=== PATIENT | female | born 1960 | race African-American/Black ===

== ENCOUNTER → 2020-08-28 01:18 | Outpatient (CLI) | payer BC, SELFPAY ==
[2020-08-28 20:54] LABS: SARS-CoV-2 RNA PCR Negative
== END ==
PROVIDERS: PCP Internal Medicine; Visit Provider Internal Medicine Gastroenterology
DX: Z01.812 Encounter for preprocedural laboratory examination (principal); Z20.822 Contact with and (suspected) exposure to COVID-19
CPT/HCPCS: C9803; U0003; U0005

== ENCOUNTER 2020-08-31 02:53 | Day surgery (SDC) | payer BC, SELFPAY ==
[2020-08-19 13:46] VITALS: BMI 22.8
[2020-08-31 09:53] VITALS: BP 109/62; PULSE 65; RESP 14; TEMP 36.6; O2SAT 99; BMI 23.2
[2020-08-31] MEDS: LACTATED RINGERS 1,000 ML 150 ML IV CONT (10:06)
--- NOTE | 2020-08-31 10:09 | PM.HPGS ---
History of Present Illness History of Present Illness Consent: Risks, benefits, and alternatives have been discussed and questions answered. Patient agrees to proceed with procedure. Chief complaint: neoplasm screening Narrative: Stefanie Roger is a 60 year old female referred for colon cancer screening Review of Systems Review of Systems: All systems reviewed & are unremarkable except as noted in HPI and below [facility] Social History Social History Smoking packs per day: 0.5 Smoking cigarettes per day: 10.0 Years smoked: 25 Smoking pack-years: 12.50 Smoking status: Current every day smoker Tobacco type: cigarettes Alcohol intake: current Alcohol use details: OCCASSIONAL Substance use: current Substance use type: marijuana Living arrangements: with family Gender identity (if verbalized by the patient): Female Spiritual care concerns: No Meds Home Medications and Allergies Home Medications Medication Instructions Recorded Confirmed Type cetirizine 10 mg tablet 10 mg PO DAILY #30 tablet 05/28/19 08/31/20 Rx hydrochlorothiazide 12.5 mg tablet See Rx Instructions .ROUTE 06/07/20 08/31/20 Rx .COMPLEX #90 tablet Allergies Allergy/AdvReac Type Severity Reaction Status Date / Time No Known Allergies Allergy Verified 08/31/20 09:52 Vital Signs Vital Signs - 24 hr 08/31/20 09:53 Temperature 36.6 C Pulse Rate 65 Respiratory Rate 14 Blood Pressure 109/62 Pulse Oximetry 99 Exam Resp: Auscultation: clear to auscultation bilaterally Cardio: Rate: regular rate Rhythm: regular rhythm GI: GI Palp: Yes Soft to palpation and No Tenderness to palpation present (GI) Assessment and Plan Assessment and plan (1) Screening for colon cancer: Code(s): Z12.11 - Encounter for screening for malignant neoplasm of colon Status: Acute
--- NOTE | 2020-08-31 10:37 | WPDANESEPPF ---
Anes - Initial Pre Proc Eval Procedure: Operation Date: 08/31/20 10:30 Proposed Procedures p Screening Colonoscopy - Aaron Bourne MD Date/Time: 08/31/20 10:37 Surgeon: Aaron Bourne MD Pre Op Diagnosis: neoplasm screening Patient Data Age: 60 Gender: F Height: 5 ft 9 in Weight: 71.3 kg Last Vital Signs Temp 97.8 F 08/31/20 09:53 Pulse 65 08/31/20 09:53 Resp 14 08/31/20 09:53 BP 109/62 08/31/20 09:53 Pulse Ox 99 08/31/20 09:53 Allergies Allergy/AdvReac Type Severity Reaction Status Date / Time No Known Allergies Allergy Verified 08/31/20 09:52 Home Medications Medication Instructions Recorded Confirmed Type cetirizine 10 mg tablet 10 mg PO DAILY #30 tablet 05/28/19 08/31/20 Rx hydrochlorothiazide 12.5 mg tablet See Rx Instructions .ROUTE 06/07/20 08/31/20 Rx .COMPLEX #90 tablet Patient hx anesthesia problems: none Family hx anesthesia problems: none PMFSH Past Medical History Medical History (Updated 08/31/20 @ 10:37 by Dannie Rodriguez MD) Hypertension Social History Social History Smoking packs per day: 0.5 Smoking cigarettes per day: 10.0 Years smoked: 25 Smoking pack-years: 12.50 Smoking status: Current every day smoker Tobacco type: cigarettes Alcohol intake: current Alcohol use details: OCCASSIONAL Substance use: current Substance use type: marijuana Living arrangements: with family Gender identity (if verbalized by the patient): Female Spiritual care concerns: No Anes - Eval Final PreProcedure Day of Procedure 08/31/20 10:37 Patient weight: normal Heart: regular rate and rhythm Lungs: clear to auscultation Airway: Mallampati scale class II Neurological: alert and oriented Last oral intake: >/= 8 hours ASA classification: II Emergent: no Anesthetic plan: proceed Anesthesia type and monitoring: general GIVS and standard monitoring Informed Consent: The patient's anesthetic plan and its attendant risks and benefits were discussed with the patient/family/POA. Questions were solicited and answers provided to the satisfaction of the patient/family/POA.
[2020-08-31 11:15] VITALS: BP 106/66; PULSE 76; RESP 14; O2SAT 99
[2020-08-31 11:25] VITALS: BP 108/72; PULSE 72; RESP 13; O2SAT 99
[2020-08-31 11:35] VITALS: BP 110/65; PULSE 68; RESP 14; O2SAT 96
== END 2020-08-31 11:58 | disposition home or self-care (01) ==
PROVIDERS: PCP Internal Medicine; Visit Provider Internal Medicine Gastroenterology
PROC: 0DJD8ZZ Inspection of Lower Intestinal Tract, Via Natural or Artificial Opening Endoscopic (ICD-10-PCS; CPT 45378; principal; 2020-08-31 10:30)
DX: Z12.11 Encounter for screening for malignant neoplasm of colon (principal); K63.89 Other specified diseases of intestine; F17.210 Nicotine dependence, cigarettes, uncomplicated
CPT/HCPCS: 45378; J2704; J7120

== ENCOUNTER 2020-12-01 09:23 | Outpatient (CLI) | payer BC, SELFPAY ==
[2020-12-01 10:11] LABS: Alanine Aminotransferase 17 U/L (4-35); Albumin Level 3.8 g/dL (3.5-5.1); Alkaline Phosphatase 63 U/L (38-126); Anion Gap 7 mmol/L (8-16); Aspartate Amino Transferase 29 U/L (14-36); Bilirubin,Total 0.5 mg/dL (0.2-1.3); Blood Urea Nitrogen 16 mg/dL (7-17); Carbon Dioxide 29 mmol/L (22-30); Chloride 104 mmol/L (98-107); Cholesterol 199 mg/dL (0-200); Estimated Glomerular Filt Rate > 60; Glucose 86 mg/dL (65-110); HDL Direct 55 mg/dL; Potassium 3.3 mmol/L (3.4-5.0); Sodium 140 mmol/L (137-145); Triglycerides 99 mg/dL (<150)
[2020-12-01 10:23] LABS: LDL Cholesterol Direct 81 mg/dL
[2020-12-01 11:39] LABS: Vitamin D 25 Hydroxy 33.2 ng/mL
== END 2020-12-01 09:24 | disposition home or self-care (01) ==
PROVIDERS: PCP Internal Medicine; Visit Provider Internal Medicine
DX: Z13.21 Encounter for screening for nutritional disorder (principal); R60.9 Edema, unspecified; Z13.6 Encounter for screening for cardiovascular disorders; Z13.220 Encounter for screening for lipoid disorders
CPT/HCPCS: 36415; 80053; 80061; 82306

== ENCOUNTER 2020-12-16 12:24 | Outpatient (CLI) | payer BC, SELFPAY ==
[2020-12-16 14:03] LABS: Anion Gap 7 mmol/L (8-16); Blood Urea Nitrogen 16 mg/dL (7-17); Calcium 9.4 mg/dL (8.4-10.2); Carbon Dioxide 30 mmol/L (22-30); Chloride 105 mmol/L (98-107); Estimated Glomerular Filt Rate > 60; Glucose 81 mg/dL (65-110); Potassium 3.2 mmol/L (3.4-5.0); Sodium 142 mmol/L (137-145)
[2020-12-16 14:33] LABS: Thyroid Stimulating Hormone 0.022 uIU/mL (0.465-4.680)
== END 2020-12-16 12:25 | disposition home or self-care (01) ==
PROVIDERS: PCP Internal Medicine; Visit Provider Internal Medicine
DX: E87.6 Hypokalemia (principal); L65.9 Nonscarring hair loss, unspecified
CPT/HCPCS: 36415; 80048; 84443

== ENCOUNTER 2021-06-17 17:07 | Outpatient (CLI) | payer BC, SELFPAY ==
[2021-06-17 17:37] LABS: Anion Gap 7 mmol/L (8-16); Blood Urea Nitrogen 17 mg/dL (7-17); Calcium 8.9 mg/dL (8.4-10.2); Carbon Dioxide 31 mmol/L (22-30); Chloride 102 mmol/L (98-107); Estimated Glomerular Filt Rate > 60; Glucose 100 mg/dL (65-110); Potassium 3.2 mmol/L (3.4-5.0); Sodium 140 mmol/L (137-145)
== END 2021-06-17 17:08 | disposition home or self-care (01) ==
LOC: ANHLAB 17:09
PROVIDERS: PCP Internal Medicine; Visit Provider Internal Medicine
DX: R60.9 Edema, unspecified (principal)
CPT/HCPCS: 36415; 80048

== ENCOUNTER 2021-08-25 17:12 | Outpatient (CLI) | payer BC, SELFPAY ==
--- NOTE | ~2021-08-25 | MM_ITS ---
EXAMINATION: MM screening gene BI w tracy HISTORY: Screening mammogram TECHNIQUE: Craniocaudal and mediolateral oblique 3-D tomosynthesis images were obtained and synthetic 2-D images were generated. CAD analysis was submitted and interpreted. COMPARISON: No prior mammogram is available for comparison at this institution. BREAST PARENCHYMAL COMPOSITION: There are scattered areas of fibroglandular density. FINDINGS: There is asymmetry in the mid to upper outer right breast. Comparison with prior mammogram is recommended to document stability of 2 more years. (There is reportedly a prior mammogram at [facility] from 2 years ago.) Otherwise no suspicious mass, architectural distortion, malignant calcification, skin thickening or r etraction of either breast is noted. IMPRESSION: 1. Mammographic asymmetry in the mid to upper outer right breast 2. Comparison with prior mammogram is recommended BI-RADS Category 0: Incomplete: Needs additional imaging evaluation. Reviewed, dictated and finalized at location A.
== END 2021-08-25 17:13 | disposition home or self-care (01) ==
PROVIDERS: PCP Internal Medicine; Visit Provider Internal Medicine
DX: Z12.31 Encounter for screening mammogram for malignant neoplasm of breast (principal)
CPT/HCPCS: 77063; 77067

== ENCOUNTER 2021-09-12 13:47 | Outpatient (CLI) | payer BC, SELFPAY ==
--- NOTE | ~2021-09-12 | MMUS_ITS ---
EXAMINATION: MM diagnostic gene RT w tracy, US breast RT limited HISTORY: Follow-up right breast asymmetry TECHNIQUE: Additional 3-D tomosynthesis images of the right breast were performed and synthetic 2-D i mages were generated. CAD analysis was submitted and interpreted. High resolution Limited right breas t ultrasound was performed. COMPARISON: Comparison to multiple prior studies sequentially, with oldest reviewed study dated 01/22. BREAST PARENCHYMAL COMPOSITION: Breast composed of scattered areas of fibroglandular density FINDINGS: MAMMOGRAPHIC FINDINGS: There are no suspicious masses, calcifications or architectural distortion in the right breast to sug gest malignancy. ULTRASOUND: Limited right breast ultrasound: Normal heterogeneous echotexture without discrete solid or cystic ma ss. IMPRESSION: 1. No mammographic evidence for malignancy in the right breast. 2. Routine yearly screening mammogram and regular clinical breast examination are recommended. BI-RADS CATEGORY 1 - NEGATIVE Reviewed, dictated and finalized at location A. IMPRESSION: 1. No mammographic evidence for malignancy in the right breast. 2. Routine yearly screening mammogram and regular clinical breast examination a re recommended. BI-RADS CATEGORY 1 - NEGATIVE
[2021-09-12 15:54] LABS: Anion Gap 1 mmol/L (8-16); Blood Urea Nitrogen 13 mg/dL (7-17); Calcium 8.6 mg/dL (8.4-10.2); Carbon Dioxide 35 mmol/L (22-30); Chloride 100 mmol/L (98-107); Estimated Glomerular Filt Rate > 60; Glucose 96 mg/dL (65-110); Potassium 3.8 mmol/L (3.4-5.0); Sodium 136 mmol/L (137-145)
[2021-09-12 16:20] LABS: Free T4 Free Thyroxine 1.01 ng/mL (0.78-2.19)
== END 2021-09-12 13:48 | disposition home or self-care (01) ==
PROVIDERS: PCP Internal Medicine; Visit Provider Internal Medicine
DX: R92.8 Other abnormal and inconclusive findings on diagnostic imaging of breast (principal); R79.89 Other specified abnormal findings of blood chemistry; R60.9 Edema, unspecified
CPT/HCPCS: 36415; 76642; 77061; 77065; 80048; 84439; G0279

== ENCOUNTER 2022-04-14 09:50 | Outpatient (CLI) | payer BC, SELFPAY ==
[2022-04-14 11:02] LABS: Alanine Aminotransferase 15 U/L (6-35); Albumin Level 4.2 g/dL (3.5-5.1); Alkaline Phosphatase 76 U/L (38-126); Anion Gap 6 mmol/L (8-16); Aspartate Amino Transferase 26 U/L (14-36); Bilirubin,Total 0.4 mg/dL (0.2-1.3); Blood Urea Nitrogen 13 mg/dL (7-17); Calcium 8.4 mg/dL (8.4-10.2); Carbon Dioxide 31 mmol/L (22-30); Chloride 104 mmol/L (98-107); Cholesterol 214 mg/dL (0-200); Estimated Glomerular Filt Rate > 60; Glucose 92 mg/dL (65-110); HDL Direct 50 mg/dL; Potassium 2.9 mmol/L (3.4-5.0); Sodium 141 mmol/L (137-145); Triglycerides 62 mg/dL (<150)
[2022-04-14 11:13] LABS: LDL Cholesterol Direct 109 mg/dL
[2022-04-14 11:29] LABS: Thyroid Stimulating Hormone 0.166 uIU/mL (0.465-4.680)
== END 2022-04-14 09:51 | disposition home or self-care (01) ==
LOC: ANHLAB 09:52
PROVIDERS: PCP Internal Medicine; Visit Provider Internal Medicine
DX: R79.89 Other specified abnormal findings of blood chemistry (principal); Z13.6 Encounter for screening for cardiovascular disorders; Z13.220 Encounter for screening for lipoid disorders; E87.6 Hypokalemia
CPT/HCPCS: 36415; 80053; 80061; 84443

== ENCOUNTER 2022-10-30 10:12 | Outpatient (CLI) | payer BC, SELFPAY ==
[2022-10-30 10:53] LABS: Basophils Percent Auto 0.2 % (0.2-1.2); Eosinophils Absolute Auto 0.1 K/mm3 (0-0.3); Eosinophils Percent Auto 2.4 % (0-4.4); Hematocrit 45.6 % (37.0-47.0); Hemoglobin 14.4 g/dL (12.0-15.0); Immature Granulocyte Absolute 0.01 K/mm3 (0.00-0.031); Immature Granulocyte Percent A 0.2 % (0-0.5); Lymphocytes Absolute Auto 2.12 K/mm3 (0.9-3.2); Lymphocytes Percent Auto 35.8 % (18.3-44.2); Mean Corpuscular HGB Conc 31.6 g/dl (32-36); Mean Corpuscular Hemoglobin 29.7 pg (26-34); Mean Platelet Volume 10.3 fl (7.4-10.4); Monocytes Absolute Auto 0.4 K/mm3 (0.1-0.6); Monocytes Percent Auto 6.6 % (2.6-8.5); Neutrophils Absolute Auto 3.3 K/mm3 (1.3-6.7); Neutrophils Percent Auto 54.8 % (45.5-73.1); Platelet Count Result 259 k/mm3 (150-375); Red Blood Count 4.85 M/mm3 (4.2-5.4); Red Cell Distribution Width 14.4 % (11.5-14.5); White Blood Count 5.9 K/mm3 (4.5-10.0)
[2022-10-30 11:02] LABS: Appearance Urine Clear (Clear); Bacteria Urine None Seen /hpf; Bilirubin Urine Negative (Negative); Blood Urine Negative (Negative); Color Urine Dark Yellow (Yellow); Glucose Urine UA Negative (Negative); Ketones Urine Negative (Negative); Leukocyte Esterase Ur Negative LEU/UL (Negative); Nitrate Urine Negative (Negative); Protein Urine Trace mg/dL (Negative); RBC Urine 0-2 /hpf (0-2); Specific Grav Ur 1.023 (1.001-1.035); Squamous Epithelial Cell Urine Occasional /hpf (Few); WBC Urine 0-5 /hpf; pH Urine 5.5 (5.0-9.0)
[2022-10-30 11:02] LABS: Hemoglobin A1C 5.4 % (<5.7)
[2022-10-30 11:06] LABS: Add Urine Microscopic? YES
[2022-10-30 11:09] LABS: Alanine Aminotransferase 20 U/L (6-35); Albumin Level 4.4 g/dL (3.5-5.1); Alkaline Phosphatase 94 U/L (38-126); Anion Gap 4 mmol/L (8-16); Aspartate Amino Transferase 29 U/L (14-36); Bilirubin,Total 0.4 mg/dL (0.2-1.3); Blood Urea Nitrogen 21 mg/dL (7-17); Calcium 8.8 mg/dL (8.4-10.2); Carbon Dioxide 34 mmol/L (22-30); Chloride 103 mmol/L (98-107); Cholesterol 245 mg/dL (0-200); Estimated Glomerular Filt Rate > 60; Glucose 100 mg/dL (65-110); HDL Direct 62 mg/dL; Potassium 2.7 mmol/L (3.4-5.0); Sodium 141 mmol/L (137-145); Triglycerides 114 mg/dL (<150)
[2022-10-30 11:14] LABS: LDL Cholesterol Direct 142 mg/dL
[2022-10-30 11:25] LABS: Free T4 Free Thyroxine 0.82 ng/mL (0.78-2.19); Vitamin D 25 Hydroxy 21.3 ng/mL
[2022-10-30 11:33] LABS: Thyroid Stimulating Hormone 0.605 uIU/mL (0.465-4.680)
[2022-11-02 14:10] LABS: Insulin Level Total 6.2 uIU/mL (<=19.6)
[2022-11-03 06:08] LABS: C-Peptide 2.05 ng/mL (0.80-3.85)
== END 2022-10-30 10:13 | disposition home or self-care (01) ==
LOC: ANHLAB 10:13
PROVIDERS: PCP Internal Medicine; Visit Provider Internal Medicine
DX: R79.89 Other specified abnormal findings of blood chemistry (principal); Z79.899 Other long term (current) drug therapy; Z13.220 Encounter for screening for lipoid disorders; E55.9 Vitamin D deficiency, unspecified; Z13.1 Encounter for screening for diabetes mellitus
CPT/HCPCS: 36415; 80053; 80061; 81001; 81003; 82306; 83036; 83525; 84439; 84443; 84681; 85025

== ENCOUNTER 2022-11-02 11:04 | Outpatient (CLI) | payer BC, SELFPAY ==
[2022-11-02 12:33] LABS: Potassium 3.1 mmol/L (3.4-5.0)
== END 2022-11-02 11:05 | disposition home or self-care (01) ==
PROVIDERS: PCP Internal Medicine; Visit Provider Internal Medicine
DX: E87.6 Hypokalemia (principal)
CPT/HCPCS: 36415; 84132

== ENCOUNTER 2023-01-12 16:20 | Outpatient (CLI) | payer BC, SELFPAY ==
[2023-01-12 17:01] LABS: Anion Gap 5 mmol/L (8-16); Blood Urea Nitrogen 18 mg/dL (7-17); Calcium 9.1 mg/dL (8.4-10.2); Carbon Dioxide 30 mmol/L (22-30); Chloride 106 mmol/L (98-107); Estimated Glomerular Filt Rate > 60; Glucose 96 mg/dL (65-110); Potassium 3.1 mmol/L (3.4-5.0); Sodium 141 mmol/L (137-145)
== END 2023-01-12 16:21 | disposition home or self-care (01) ==
PROVIDERS: PCP Internal Medicine; Visit Provider Internal Medicine
DX: E87.6 Hypokalemia (principal)
CPT/HCPCS: 36415; 80048

== ENCOUNTER 2023-02-19 09:38 | Emergency (ER) | payer OTHER, BC, SELFPAY ==
--- NOTE | ~2023-02-19 | XR_ITS ---
Lumbosacral Spine: AP and lateral views Clinical History: Pain Findings: The normal lordotic curve is maintained. No fracture identified. There is 12 mm anterolisth esis of L4 over L5. There is advanced facet arthropathy from L4 through S1. There is moderate degener ative disc narrowing at L5-S1. Calcified uterine fibroid present. The sacroiliac joints are normally outlined. Impression: 12 mm anterolisthesis of L4 over L5. Moderate degenerative spondylosis of the lower lumbar spine. No acute fracture identified. Calcified uterine fibroid, approximately 4.8 cm in diameter. Reviewed, dictated and finalized at location . Impression: 12 mm anterolisthesis of L4 over L5. Moderate degenerative spondylosis of the lower lumbar spine. No acute fracture identified. Calcified uterine fibroid, approximately 4.8 cm in diameter.
[2023-02-19 09:41] VITALS: BP 121/73; PULSE 91; RESP 18; TEMP 36.6; O2SAT 100
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
[2023-02-19] MEDS: KETOROLAC (*BKC) 60 MG/2 ML VIAL IM (10:30)
[2023-02-19 10:47] VITALS: BP 125/89; PULSE 71; RESP 18; O2SAT 100
== END 2023-02-19 11:59 | disposition home or self-care (01) ==
PROVIDERS: Emergency Provider Emergency Medicine; PCP Internal Medicine
DX: S39.012A Strain of muscle, fascia and tendon of lower back, initial encounter (principal); E78.5 Hyperlipidemia, unspecified; E55.9 Vitamin D deficiency, unspecified; Z96.659 Presence of unspecified artificial knee joint; M47.816 Spondylosis without myelopathy or radiculopathy, lumbar region; D25.9 Leiomyoma of uterus, unspecified; V49.40XA Driver injured in collision with unspecified motor vehicles in traffic accident, initial encounter
CPT/HCPCS: 72100; 96372; 99283; J1885

== ENCOUNTER 2023-11-23 16:41 | Outpatient (CLI) | payer OTHER, BC, SELFPAY ==
[2023-11-23 17:24] LABS: Alanine Aminotransferase 17 U/L (6-35); Albumin Level 4.3 g/dL (3.5-5.1); Alkaline Phosphatase 63 U/L (38-126); Anion Gap 9 mmol/L (4-12); Aspartate Amino Transferase 30 U/L (14-36); Bilirubin,Total 0.5 mg/dL (0.2-1.3); Blood Urea Nitrogen 17 mg/dL (7-17); Carbon Dioxide 27 mmol/L (22-30); Chloride 105 mmol/L (98-107); Cholesterol 211 mg/dL (0-200); Estimated Glomerular Filt Rate > 60; Glucose 110 mg/dL (65-110); HDL Direct 60 mg/dL; Potassium 3.2 mmol/L (3.4-5.0); Sodium 141 mmol/L (137-145); Triglycerides 63 mg/dL (<150)
[2023-11-23 17:34] LABS: Hemoglobin A1C 5.6 % (<5.7)
[2023-11-23 17:35] LABS: LDL Cholesterol Direct 117 mg/dL
[2023-11-23 17:54] LABS: Thyroid Stimulating Hormone 0.041 uIU/mL (0.465-4.680)
[2023-11-23 18:07] LABS: Free T4 Free Thyroxine 1.09 ng/mL (0.78-2.19); Vitamin D 25 Hydroxy 31.9 ng/mL
[2023-11-23 18:29] LABS: Folic Acid 18.7 ng/mL (2.76->20)
[2023-11-24 12:39] LABS: C-Peptide 2.24 ng/mL (0.80-3.85)
[2023-11-26 15:33] LABS: Insulin Level Total 12.5 uIU/mL
== END 2023-11-23 16:42 | disposition home or self-care (01) ==
LOC: ANHLAB 16:44
PROVIDERS: PCP Internal Medicine; Visit Provider Internal Medicine
DX: E78.5 Hyperlipidemia, unspecified (principal); E87.6 Hypokalemia; E55.9 Vitamin D deficiency, unspecified; E53.8 Deficiency of other specified B group vitamins; R63.5 Abnormal weight gain; Z79.899 Other long term (current) drug therapy; Z13.1 Encounter for screening for diabetes mellitus; Z13.29 Encounter for screening for other suspected endocrine disorder
CPT/HCPCS: 36415; 80053; 80061; 82306; 82607; 82746; 83036; 83525; 84439; 84443; 84681

== ENCOUNTER 2024-07-23 14:10 | Outpatient (CLI) | payer OTHER, SELFPAY ==
--- NOTE | ~2024-07-23 | XR_ITS ---
CHEST RADIOGRAPH, PA AND LATERAL CLINICAL HISTORY: cough . COMPARISON: None available TECHNIQUE: PA and lateral views of the chest. FINDINGS The cardiomediastinal silhouette is unremarkable. The lungs are clear. Visualized osseous structures and soft tissues are unremarkable. IMPRESSION: No focal infiltrate or effusion. Reviewed, dictated and finalized at location A.
--- NOTE | ~2024-07-23 | XR_ITS ---
XR ribs LT 2V Ordering provider: Boni Huntley MD History: . R07.81 - Pleurodynia . Comparison: None. FINDINGS: BONES: No acute left rib fracture or fracture of the visualized osseous structures. LEFT LUNG: No effusions or infiltrates. No pneumothorax. SOFT TISSUES: Normal. IMPRESSION: No left rib fracture. Reviewed, dictated and finalized at location A. IMPRESSION: No left rib fracture.
--- OUTSIDE RECORDS SUMMARY | 2024-07-23 16:21 | XMS_ITS | Referral Summary ---
Author Organization [facility] Address [address] [place] [address] Care Team Providers Care Piano Case Maker Name Role Phone Darryl Navarro DO Primary Care Provider [phone] Ash England PA Unavailable [phone] Allergies No known active allergies Medications hydroCHLOROthia zide (HYDRODIURIL) 12.5 mg tablet Take 12.5 mg by mouth nightly 2 9 Active potassium citrate ER (UROCIT-K) 10 mEq (1,080 mg) CR tablet Take 10 mEq by mouth daily Active cetirizine (ZyrTEC) 10 mg tablet Take 10 mg by mouth daily Active PARoxetine (PAXIL) 10 mg tablet Take 10 mg by mouth every morning Active aspirin 81 mg chewable tablet Take 1 tablet (81 mg total) by mouth 2 (two) times a day Restart normal once a day dose after 30 days 60 tablet 1 Active celecoxib (CeleBREX) 200 mg capsule Take 1 capsule (200 mg total) by mouth 2 (two) times a day 60 capsule 1 Active cholecalciferol (VITAMIN D-3) 2000 unit capsule Take 1 capsule (2,000 Units total) by mouth daily 30 capsule 1 Active ondansetron (ZOFRAN) 4 mg tablet Take 1 tablet (4 mg total) by mouth every 8 (eight) hours as needed for nausea or vomiting 20 tablet 1 Active Additional Information Patient not taking.Reported on 02/09/2022 senna-docusate (PERICOLACE) 8.6-50 mg 1-2 times daily as needed for constipation 20 tablet 1 Active Additional Information Patient not taking.Reported on 02/09/2022 HYDROcodone-juani taminophen (NORCO) 5-325 mg per tabletIndicatio ns:Pain Take 1-2 tablets every 4-6 hours as needed for pain 23 tablet 1 Active furosemide (LASIX) 20 mg tablet Take 20 mg by mouth every morning 2 Active mupirocin (BACTROBAN) 2 % ointment Apply topically 3 (three) times a day 2 Active Active Problems Problem Noted Date Diagnosed Date S/P total knee arthroplasty, left 12/22/2020 Complex tear of medial menis cus of left knee as current injury 07/15/2018 Overview (07/15/2018): Added automatically from request for surgery [id number] Resolved Problems Problem Noted Date Diagnosed Date Resolved Date Primary osteoarthritis of left knee 05/26/2020 12/22/2020 Immunizations Immunization Administration Dates Next Due OMGPOP SARS-CoV-2 Monovalent Vaccination (12+ Yrs) PURPLE 06/25/2020,06/04/2020 Social History Tobacco Use Types Packs/Day Years Used Date Smoking Tobacco: Every Day Cigarettes Smokeless Tobacco: Never Alcohol Use Standard Drinks/Week Comments Yes 0 (1 standard drink = 0.6 oz pur e alcohol) occasionally AUDIT-C Answer Date Recorded Q1: How often do you have a drink containing alc ohol? Monthly or less 12/21/2020 Average Number of Drinks Not on file 021 Q3: How often do you have si x or more drinks on one occasion? 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 Gender Identity Not on file Sexual Orientation Not on file Last Filed Vital Signs Vital Sign Reading Time Taken Comments Blood Pressure 131/86 02/09/2022 2:49 PM CDT Pulse 75 02/09/2022 2:49 PM CDT Temperature 35.8 C (96.4 F) 12/22/2020 11:30 AM CDT Respiratory Rate 18 12/22/2020 11:30 AM CDT Oxygen Saturation 95% 12/22/2020 11:30 AM CDT Inhaled Oxygen Concentration - - Weight 70.8 kg (156 lb) 02/09/2022 2:49 PM CDT Height 172.7 cm (5' 8 ) 02/09/2022 2:49 PM CDT Body Mass Index 23.72 02/09/2022 2:49 PM CDT Plan of Treatment Not on file Medical Devices Implanted Type Area Retail Sales Teammate Device Identifier Shelf Expiration Date Model / Serial / Lot [employer] 6195-1-001 Cement Bone Simplex Gentamicin High Viscosity 40gm - [id number] Implanted:Qty: 1 on 12/21/2020 by Jf Solis MD at [facility] Left: Knee [employer] 09/03/2021 6195-1-001 / / [id number] [employer] [id number] Attune Cruciate Retain Cementless Knee Left 6 Narrow Component - [id number] Implanted:Qty: 1 on 12/21/2020 by Jf Solis MD at [facility] Left: Knee [employer] 04/05/2031 [id number] / / [id number] [employer] [id number] Attune S+ Cement Fix Bearing Knee 6 Baseplate Tibial - [id number] Implanted:Qty: 1 on 12/21/2020 by Jf Solis MD at [facility] Left: Knee [employer] 2029 [id number] / / [id number] [employer] [id number] Attune 5mm Cruciate Retaining Fix Bearing Knee 6 Insert Tibial - [id number] Implanted:Qty: 1 on 12/21/2020 by Jf Solis MD at [facility] Left: Knee [employer] 09/03/2025 [id number] / / [id number] Insurance [facility] HMO/POS ANTHEM ACCESS [employer] ACCESS OOS [employer] ACCESS OOS Advance Directives For more information, please contact: [phone] * Full Code (Latest Code Status on File) Date Activated Date Inactivated Comments 12/21/2020 4:24 PM 12/22/2020 6:53 PM Care Teams Piano Case Maker Relationship Specialty Start Date End Date Darryl Navarro DO PCP - General Internal Medicine 05/14/20 Ash England PA Physician Roller Die Cutting Machine Operator Orthopedic Surgery 12/21/20
--- OUTSIDE RECORDS SUMMARY | 2024-07-23 16:21 | XMS_ITS | Patient Health Record ---
Author Organization [facility] Address [address] [place], [place] [id number] Care Team Providers Care Incubator Operator Name Role Phone BOSSMAN BAIG Unavailable [phone] Reason For Referral No Information Immunizations Vaccine Route Administration Date Status Comme nts Pfizer 1st Dose IM Intramuscular 06/04/2020 Administered Pfizer 2nd Dose IM Intramuscular 06/25/2020 Administered Plan Of Treatment No Information Insurance Providers Payer Name Payer Address Payer Phone Subscriber Number Group Number Insured Name Patient Relationship to Insured Coverage Start Date Coverage End Date [employer] [address] [address] [place], [place] [id number] [phone] [id number] SEB ISAAC Self - patient is the insured
--- OUTSIDE RECORDS SUMMARY | 2024-07-23 16:21 | XMS_ITS | Clinical Summary ---
Author Organization [facility] Address [address] [place] [address] Care Team Providers Care Manager Statistical Name Role Phone Darryl Navarro DO Primary Care Provider Ash England PA Unavailable [phone] Allergies No known active allergies Medications hydroCHLOROthia [...] (07/15/2018): Added automatically from request for surgery [id number] Resolved Problems Problem Noted Date Diagnosed Date Resolved Date Primary osteoarthritis of left knee 05/26/2020 12/22/2020 Immunizations Immunization Administration Dates Next Due [email or web address] SARS-CoV-2 Monovalent Vaccination (12+ Yrs) PURPLE 06/25/2020,06/04/2020 Surgical History Surgery Date Site/Laterality Comments KNEE SURGERY Medical History Medical History Date Comments Osteoarthritis Family History Medical History Relation Name Comments Diabetes Father Hypertension Father Diabetes Mother Hypertension Mother Relation Name Status Comments Father Mother Social History Tobacco Use Types Packs/Day Years [...] on file 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 Gender Identity Not on file Sexual Orientation Not on file Obstetrics History Last Filed Vital Signs Vital Sign Reading [...] 02/09/2022 2:49 PM CDT Plan of Treatment Health Maintenance Due Date Last Done Comments Breast Cancer Screening-Mammogram 1962 Cervical Cancer Screening 1962 Colon Cancer Screening-Colonoscopy 1962 Depression Screening 1962 Hepatitis C Screening 1962 DTaP/Tdap/Td Vaccine (1 - Tdap) 1973 Hepatitis B Screening 1980 Regular Well Visit/Exam 18-64 1980 Pneumococcal vaccine <65 (1 of 2 - PCV) 1981 Zoster Vaccine (1 of 2) 2012 Covid-19 Vaccine (3 - season) 2024, 06/04/2020 Influenza Vaccine (#1) 2024 02/16/2020 Medical Devices Implanted Type Area Traffic Coordinator Device Identifier Shelf Expiration Date Model / Serial / Lot [employer] 6195-1-001 Cement Bone Simplex Gentamicin High Viscosity 40gm - [id number] Implanted:Qty: 1 on 12/21/2020 by Jf Solis MD at [facility] Left: Knee [employer] 09/03/2021 6195-1-001 / / [id number] [employer] [id number] Attune Cruciate Retain Cementless Knee Left 6 Narrow Component - [id number] Implanted:Qty: 1 on 12/21/2020 by Jf Solis MD at [facility] Left: Knee [employer] 04/05/2031 [id number] / / [id number] [employer] [id number] Attune S+ Cement Fix Bearing Knee 6 Baseplate Tibial - [id number] Implanted:Qty: 1 on 12/21/2020 by Jf Solis MD at [facility] Left: Knee [employer] 2029 [id number] / / [id number] [employer] [id number] Attune 5mm Cruciate Retaining Fix Bearing Knee 6 Insert Tibial - [id number] Implanted:Qty: 1 on 12/21/2020 by Jf Solis MD at [facility] Left: Knee [employer] 09/03/2025 [id number] / / [id number] Insurance [facility] HMO/POS ANTHEM ACCESS BLUE ACCESS OOS [employer] OOS Advance Directives For more information, please contact: [phone] * Full Code (Latest Code Status on File) Date Activated Date Inactivated Comments 12/21/2020 4:24 PM 12/22/2020 6:53 PM Care Teams Manager Statistical Relationship Specialty Start Date End Date Darryl Navarro DO PCP - General Internal Medicine 05/14/20 Ash England PA Physician Oven Press Tender Orthopedic Surgery 12/21/20
--- OUTSIDE RECORDS SUMMARY | 2024-07-23 16:21 | XMS_ITS | Clinical Summary ---
Author Organization [facility] Address [address] [place] [address] Care Team Providers Care Supervisor Throwing Department Name Role Phone Chris Solorio MD Primary Care Provider [phone] Source Comments [facility] [employer] [facility],non-owned Affiliates and Associated Physician Practices is amultiple site organization consisting of ambulatory clinics and hospital sitesin [place], [place], [place] and [place]. This disclosure is being madepursuant to the Care Everywhere program and may not contain all information available regarding this patient. Last updated 18.[facility] Allergies No known active allergies Medications Be aware that medications may not be up to date on this document. Always verify current medications with the patient. No known medications Social History Tobacco Use Types Packs/Day Years Used Date Smoking Tobacco: Every Day Alcohol Use Standard Drinks/Week Comments No 0 (1 standard drink = 0.6 oz pur e alcohol) Sex and Gender Information Value Date Recorded Sex Assigned at Not on file Gender Identity Not on file Sexual Orientation Not on file Last Filed Vital Signs Vital Sign Reading Time Taken Comments Blood Pressure 122/89 07/24/2013 2:29 PM CDT Pulse 70 07/24/2013 2:29 PM CDT Temperature 36.8 C (98.3 F) 07/24/2013 12:02 PM CDT Respiratory Rate 18 07/24/2013 12:18 PM CDT Oxygen Saturation 100% 07/24/2013 2:29 PM CDT Inhaled Oxygen Concentration - - Weight 68 kg (150 lb) 07/24/2013 12:02 PM CDT Height 175.3 cm (5' 9 ) 07/24/2013 12:02 PM CDT Body Mass Index 22.15 07/24/2013 12:02 PM CDT Plan of Treatment Health Maintenance Due Date Last Done Comments COLOGUARD (AGES 45-75) - COL ON CA SCREENING 1962 COLON MONITORING 1962 COLONOSCOPY - COLON CA SCREENING 1962 CT COLONOGRAPHY - COLON CA SCREENING 1962 Colorectal Cancer Screening 1962 FIT - COLON CA SCREENING 1962 FLEX SIG - COLON CA SCREENING 1962 LIPID TESTING 1962 MAMMOGRAM 1962 PAP SMEAR 1962 HIV SCREENING 1977 HEPATITIS C SCREENING 05/01/1980 DTAP/TDAP/TD VACCINES (1 - Tdap) 1981 PNEUMOCOCCAL VACCINE (1 of 2 - PCV) 1981 PNEUMOCOCCAL VACCINE 50+ (1 of 1 - PCV) 2012 ZOSTER VACCINE (1 of 2) 2012 COVID-19 VACCINE ( - 2023-2 5 season) 2024 INFLUENZA VACCINE (#1) 2024 DEPRESSION SCREENING 05/07/2024 Respiratory Syncytial Virus (RSV) Vaccine Pt: or over 60 yrs (1 - 1-dose 75+ series) 2037 HEPATITIS B VACCINE Aged Out No longe r eligible based on patient's age to complete this topic HIB VACCINE Aged Out No longer eligi ble based on patient's age to complete this topic HPV VACCINE Aged Out No longer eligi ble based on patient's age to complete this topic MENINGOCOCCAL (Group B) VACC INE SHARED DECISION-MAKING Aged Out No longer eligibl e based on patient's age to complete this topic MENINGOCOCCAL GROUPS A/C/Y/W VACCINE Aged Out No longer eligible b ased on patient's age to complete this topic Care Teams Supervisor Throwing Department Relationship Specialty [place] [address] [place] [address] [place] [address] PCP - General Family Medicine 07/24/13
== END 2024-07-23 14:11 | disposition home or self-care (01) ==
LOC: ANHIMG 14:47
PROVIDERS: PCP Internal Medicine; Visit Provider Internal Medicine
DX: R07.81 Pleurodynia (principal); M95.4 Acquired deformity of chest and rib; R05.9 Cough, unspecified
CPT/HCPCS: 71046; 71100

== ENCOUNTER 2024-11-28 08:04 | Outpatient (CLI) | payer OTHER, SELFPAY ==
--- NOTE | ~2024-11-28 | MM_ITS ---
EXAMINATION: MM screening gene BI w tracy HISTORY: Screening TECHNIQUE: Craniocaudal and mediolateral oblique 3-D tomosynthesis images were obtained and synthetic 2-D images were generated. CAD analysis was submitted and interpreted. COMPARISON: Comparison to multiple prior studies sequentially, with oldest reviewed study dated 01/05. BREAST PARENCHYMAL COMPOSITION: Not dense: There are scattered areas of fibroglandular density. FINDINGS: There is no evidence of suspicious mass, calcification, or architectural distortion to sugg est malignancy in either breast. There has been no suspicious interval change. IMPRESSION: 1. No mammographic evidence of malignancy. 2. Recommend routine screening mammography in one year. BI-RADS Category 1: Negative Reviewed, dictated and finalized at location A.
--- OUTSIDE RECORDS SUMMARY | 2024-11-28 08:10 | XMS_ITS | Referral Summary ---
Author Organization [facility] Address [address] [place] [address] Care Team Providers Care Human Resource Intern Name Role Phone Darryl Navarro DO Primary Care Provider [phone] Ash England PA Unavailable [phone] Allergies No known active allergies Medications hydroCHLOROthia [...] (07/15/2018): Added automatically from request for surgery [id number] Resolved Problems Problem Noted Date Diagnosed Date Resolved Date Primary osteoarthritis of left knee 05/26/2020 12/22/2020 Immunizations Immunization Administration Dates Next Due [employer] SARS-CoV-2 Monovalent Vaccination (12+ Yrs) PURPLE 06/25/2020,06/04/2020 [...] on file 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 Gender Identity Not on file Sexual Orientation [...] 2:49 PM CDT Height 172.7 cm (5' 8) 02/09/2022 2:49 PM CDT Body Mass Index 23.72 02/09/2022 2:49 PM CDT Plan of Treatment Not on file Medical Devices Implanted Type Area Excavator Operator Device Identifier Shelf Expiration Date Model / Serial / Lot [employer] 6195-1-001 Cement Bone Simplex Gentamicin High Viscosity 40gm - [id number] Implanted:Qty: 1 on 12/21/2020 by Jf Solis MD at [facility] Left: Knee [employer] 09/03/2021 6195-1-001 / / [id number] [employer] [id number] Attune Cruciate Retain Cementless Knee Left 6 Narrow Component - [id number] Implanted:Qty: 1 on 12/21/2020 by Jf Solis MD at [facility] Left: Knee [employer] 04/05/2031 [id number] / / [id number] [employer] [id number] Attune S+ Cement Fix Bearing Knee 6 Baseplate Tibial - [id number] Implanted:Qty: 1 on 12/21/2020 by Jf Solis MD at [facility] Left: Knee [employer] 2029 [id number] / / [id number] [employer] [id number] Attune 5mm Cruciate Retaining Fix Bearing Knee 6 Insert Tibial - [id number] Implanted:Qty: 1 on 12/21/2020 by Jf Solis MD at [facility] Left: Knee [employer] 09/03/2025 [id number] / / [id number] Insurance [facility] HMO/POS ANTHEM ACCESS [employer] ACCESS OOS [employer] ACCESS OOS Advance Directives For more information, please contact: [phone] * Full Code (Latest Code Status on File) Date Activated Date Inactivated Comments 12/21/2020 4:24 PM 12/22/2020 6:53 PM Care Teams Human Resource Intern Relationship Specialty Start Date End Date Darryl Navarro DO PCP - General Internal Medicine 05/14/20 Ash England PA Physician Coal Picker Orthopedic Surgery 12/21/20
--- OUTSIDE RECORDS SUMMARY | 2024-11-28 08:10 | XMS_ITS | Clinical Summary ---
Author Organization [facility] Address [address] [place] [address] Care Team Providers Care Art Objects Repairer Name Role Phone Darryl Navarro DO Primary Care Provider [phone] Ash England PA Unavailable [phone] Allergies No known active allergies Medications hydroCHLOROthia [...] (07/15/2018): Added automatically from request for surgery [id number] Resolved Problems Problem Noted Date Diagnosed Date Resolved Date Primary osteoarthritis of left knee 05/26/2020 12/22/2020 Immunizations Immunization Administration Dates Next Due [employer] SARS-CoV-2 Monovalent Vaccination (12+ Yrs) PURPLE 06/25/2020,06/04/2020 [...] on file 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 Gender Identity Not on file Sexual Orientation [...] - season) 2024, 06/04/2020 Influenza Vaccine (#1) 2025 02/16/2020 Medical Devices Implanted Type Area Mold Carpenter Device Identifier Shelf Expiration Date Model / Serial / Lot [employer] 6195-1-001 Cement Bone Simplex Gentamicin High Viscosity 40gm - [id number] Implanted:Qty: 1 on 12/21/2020 by Jf Solis MD at [facility] Left: Knee [employer] 09/03/2021 6195-1-001 / / [id number] [employer] [id number] Attune Cruciate Retain Cementless Knee Left 6 Narrow Component - [id number] Implanted:Qty: 1 on 12/21/2020 by Jf Solis MD at [facility] Left: Knee [employer] 04/05/2031 [id number] / / [id number] [employer] [id number] Attune S+ Cement Fix Bearing Knee 6 Baseplate Tibial - [id number] Implanted:Qty: 1 on 12/21/2020 by Jf Solis MD at [facility] Left: Knee [employer] 2029 [id number] / / [id number] [employer] [id number] Attune 5mm Cruciate Retaining Fix Bearing Knee 6 Insert Tibial - [id number] Implanted:Qty: 1 on 12/21/2020 by Jf Solis MD at [facility] Left: Knee [employer] 09/03/2025 [id number] / / [id number] Insurance [facility] HMO/POS ANTHEM ACCESS BLUE ACCESS OOS [employer] OOS Advance Directives For more information, please contact: [phone] * Full Code (Latest Code Status on File) Date Activated Date Inactivated Comments 12/21/2020 4:24 PM 12/22/2020 6:53 PM Care Teams Art Objects Repairer Relationship Specialty Start Date End Date Darryl Navarro DO PCP - General Internal Medicine 05/14/20 Ash England PA Physician Administrative Fellow Orthopedic Surgery 12/21/20
--- OUTSIDE RECORDS SUMMARY | 2024-11-28 08:10 | XMS_ITS | Clinical Summary ---
Author Organization [facility] Address [address] [address] Care Team Providers Care Hand Turner Name Role Phone Chris Solorio MD Primary Care Provider [phone] Source Comments [facility],non-owned Affiliates and Associated Physician Practices is amultiple site organization consisting of ambulatory clinics and hospital sitesin [place], [place], [place] and [place]. This disclosure is being madepursuant to the Care Everywhere program and may not contain all information available regarding this patient. Last updated 18.[facility] Allergies No known active allergies Medications * Be aware that medications may not be up to date on this document. Alwaysverify current medications with the patient. 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 Gender Identity Not on file Sexual Orientation [...] 12:02 PM CDT Height 175.3 cm (5' 9) 07/24/2013 12:02 PM CDT Body Mass Index [...] SCREENING 1962 LIPID TESTING 1962 MAMMOGRAM 1962 HIV SCREENING 1977 HEPATITIS C SCREENING 05/01/1980 DTAP/TDAP/TD VACCINES (1 - Tdap) 1981 PNEUMOCOCCAL VACCINE 50+ (1 of 1 - PCV) 2012 ZOSTER VACCINE (1 of 2) 2012 COVID-19 VACCINE (1 - 2023-2 5 season) 2024 DEPRESSION SCREENING 05/07/2024 INFLUENZA VACCINE (#1) 2025 Respiratory Syncytial Virus (RSV) Vaccine Pt: or [...] on patient's age to complete this topic Insurance [employer]IANA Care Teams Hand Turner Relationship Specialty Start Date End Date Chris Solorio MD [address] [facility] [place] [address] PCP - General Family Medicine 07/24/13
--- OUTSIDE RECORDS SUMMARY | 2024-11-28 08:10 | XMS_ITS | Patient Health Record ---
Author Organization [facility] Address [address] [place], [place] [id number] Care Team Providers Care Laborer Livestock Name Role Phone BOSSMAN BAIG Unavailable [phone] Reason For Referral No Information Immunizations Vaccine Route Administration Date Status Comme nts Pfizer 1st Dose IM Intramuscular 06/04/2020 Administered Pfizer 2nd Dose IM Intramuscular 06/25/2020 Administered Plan Of Treatment No Information Insurance Providers Payer Name Payer Address Payer Phone Subscriber Number Group Number Insured Name Patient Relationship to Insured Coverage Start Date Coverage End Date [employer] [address] [address] [place], [place] [id number] STEFANIE ISAAC Self - patient is the insured
--- OUTSIDE RECORDS SUMMARY | 2024-11-28 08:10 | XMS_ITS | Data Portability ---
Author Organization [place] [facility] - IP Address [address] [place] [address] Assessment Encounter Date Assessment Date Assessment LastModified by Organization Details LastModified Time 03/15/2020 03/15/2020 Annual gynecological exam performed. Patient will come back in a year unless there are new symptoms. Not available 03/15/2020 08:17:21 03/16/2021 03/16/2021 Annual gynecological exam performed. Patient will come back in a year unless there are new symptoms. Not available 03/15/2021 16:28:56 04/18/2022 04/18/2022 Annual gynecological exam performed. Patient will come back in a year unless there are new symptoms. Not available 04/04/2022 09:01:52 04/25/2023 04/25/2023 Annual gynecological exam performed. Patient will come back in a year unless there are new symptoms. Not available 04/24/2023 21:04:04 Plan of Treatment Reminders Order Date Submit Date Provider Last Modified By Organization Details Last Modified Time Details Appointments None recorded. Lab wet mount 2024 025 [email or web address] Main Office, [address], [place], [address], 15:21:09 tyron wet prep 2024 025 [email or web address] Main Office, [address], [place], [address], 5 15:21:10 pap, IG + HR HPV 2024 025 IRINA [facility] ([place]), [address] [place], [address], 5 14:17:41 pap, IG + HR HPV 2020 021 IRINA [facility] ([place]), [address] [place], [address], 1 16:10:10 Referral None recorded. Procedures None recorded. Surgeries None recorded. Imaging MAMMO, screening, digital, bilateral [address] [facility], [address], [address], [place], [address], 5 09:49:27 MAMMO, tomosynthes is 2022 023 [email or web address] [email or web address] [facility] [address], [address], [place], [address], 4 09:58:43 MAMMO, tomosynthes is 2021 022 acables Not available 2 10:56:40 MAMMO, tomosynthes is 2020 021 [email or web address] Not available 1 08:13:07 MAMMO, tomosynthes is 2019 020 acables Not available 0 12:11:31 Medication Orders clotrimazol e-betametha sone 1 %-0.05 % topical cream 2021 022 [email or web address] [id number], [address] [place], [address], 5 18:10:19 paroxetine 10 mg tablet 2021 022 IRINA [id number], [address] [place], [address], 17:29:29 mupirocin 2 % topical ointment 2020 021 [email or web address] [id number], [address] [place], [address], 18:10:58 Patient TargetsNo targets recorded. Patient Instructions Encounter Date Encounter Id Patient Instructions Last Modified By Organization Details Last Modified Time 03/15/2020 [id number] breast self-exam : care instructions Not available 03/15/2020 16:29:41 calcium and exercise Not available 03/15/2020 16:29:41 vitamin D Not available 2019 16:29:41 need for follow-up Not available 03/15/2020 16:29:41 03/16/2021 [id number] breast self-exam : care instructions Not available 03/16/2021 16:13:09 calcium and exercise Not available 03/16/2021 16:13:09 vitamin D Not available 2020 16:13:09 need for follow-up Not available 03/16/2021 16:13:09 04/18/2022 [id number] breast self-exam : care instructions Not available 04/18/2022 17:29:27 calcium and exercise Not available 04/18/2022 17:29:27 vitamin D Not available 2021 17:29:27 need for follow-up Not available 04/18/2022 17:29:27 04/25/2023 [id number] breast self-exam : care instructions Not available 04/25/2023 17:36:34 calcium and exercise Not available 04/25/2023 17:36:34 vitamin D Not available 2022 17:36:34 need for follow-up Not available 04/25/2023 17:36:33 09/10/2024 [id number] vaginitis education [email or web address] Not available 09/10/2024 15:21:09 breast self-exam : care instructions [email or web address] Not available 09/10/2024 15:21:09 A healthy lifestyle: care instructions [email or web address] Not available 09/10/2024 15:21:09 continue exercise [email or web address] Not avai lable 09/10/2024 15:21:09 calcium and vitamin D combination [email or web address] Not available 09/10/2024 15:21:09 mammogram screening patient instructions [email or web address] Not available 09/10/2024 15:21:09 Reason for Referral None Reported. Results Created Date Observation Date Name Description Value Unit Range Abnormal Flag Note LastModifiedBy Organization Detail LastModifiedTime 03/16/20 21 03/18/2021 IGP, JAX HPV16 /18 HPV other HR types Negati ve negati ve Not Available [facility] ([facility]) [address] [place], [address], 03/21/2021 16:10:10 03/16/20 21 03/18/2021 IGP, JAX HPV16 /18 HPV 16 Negati ve negati ve Not Available [facility] ([facility]) [address] [place], [address], 03/21/2021 16:10:10 03/16/20 21 03/18/2021 IGP, JAX HPV16 /18 HPV 18 Negati ve negati ve This nucle ic acid ampli ficat ion test detec ts fourt een high- risk HPV types : HPV16 , HPV18 and twelv e other high- risk types (31,3 3,35, 39,45 ,51,5 2,56, 58,59 ,66,6 8) witho ut diffe renti ation . Not Available [facility] ([facility]) [address] [place], [address], 03/21/2021 16:10:10 03/16/20 21 03/21/2021 IGP, JAX HPV16 /18 diagnosis: Dee GTZ FOR INTRA EPITH ELIAL LESIO N OR LUTHER WILSON . Not Available [facility] ([facility]) [address] [facility], [place], [address], 03/21/2021 16:10:10 03/16/20 21 03/21/2021 IGP, JAX HPV16 /18 specimen adequacy: Dee ochoa Satis facto ry for evalu ation . Endoc ervic al and/o r squam ous metap lasti c cells (endo cervi thaddeus compo nent) are prese nt. Not Available [facility] ([facility]) [address] [facility], [place], [address], 03/21/2021 16:10:10 03/16/20 21 03/21/2021 IGP, JAX HPV16 /18 clinician provided ICD10: Dee ochoa Z12.4 Not Available [facility] ([facility]) [address] [facility], [place], [address], 03/21/2021 16:10:10 03/16/20 21 03/21/2021 IGP, JAX HPV16 /18 performed by: Dee woods, Cytot sheri ochoa (ASCP ) Not Available [facility] ([facility]) [address] [place], [address], 03/21/2021 16:10:10 03/16/20 21 03/21/2021 IGP, JAX HPV16 /18 . . Not Available [facility] ([facility]) [address] [place], [address], 03/21/2021 16:10:10 03/16/20 21 03/21/2021 IGP, JAX HPV16 /18 note: Dee ochoa The Pap smear is a scree trinidad test desluz pollard to aid in the detec tion of moe ligna nt and malig nant condi tions of the uteri ne cervi x. It is not a diagn ostic proce dure and shoul d not be used as the sole means of detec ting cervi thaddeus cance r. Both false -posi tive and false -nega tive repor ts do occur . Not Available [facility] ([facility]) [address] [place], [address], 03/21/2021 16:10:10 03/16/20 21 03/21/2021 IGP, JAX HPV16 /18 test methodology: Commen t This liqui d based ThinP rep(R ) pap test was saúle latrice with the use of an image guide rasta warner. Not Available [facility] ([facility]) [address] [place], [address], 03/21/2021 16:10:10 09/11/19 25 09/12/2024 IGP, JAX HPV16 /18 HPV other HR types Negati ve negati ve Not Available [facility] ([facility]) [address] [place], [address], 09/15/2024 14:17:41 09/11/19 25 09/12/2024 IGP, JAX HPV16 /18 HPV 16 Negati ve negati ve Not Available [facility] ([facility]) [address] [place], [address], 09/15/2024 14:17:41 09/11/19 25 09/12/2024 IGP, JAX HPV16 /18 HPV 18 Negati ve negati ve This nucle ic acid ampli ficat ion test detec ts fourt een high- risk HPV types : HPV16 , HPV18 and twelv e other high- risk types (31,3 3,35, 39,45 ,51,5 2,56, 58,59 ,66,6 8) witho ut diffe renti ation . Not Available [facility] ([facility]) [address] [place], [address], 09/15/2024 14:17:41 09/11/19 25 09/15/2024 IGP, AJX HPV16 /18 diagnosis: Dee GTZ FOR INTRA EPITH ELIAL LESIO N OR LUTHER WILSON . Not Available [facility] ([facility]) [address] [facility], [place], [address], 09/15/2024 14:17:41 09/11/19 25 09/15/2024 IGP, JAX HPV16 /18 specimen adequacy: Dee ochoa Satis facto ry for evalu ation . No endoc ervic al compo nent is ident ified . Not Available [facility] ([facility]) [address] [facility], [place], [address], 09/15/2024 14:17:41 09/11/19 25 09/15/2024 IGP, JAX HPV16 /18 clinician provided ICD10: Dee ochoa Z12.4 Z11.3 Not Available [facility] ([facility]) [address] [facility], [place], [address], 09/15/2024 14:17:41 09/11/19 25 09/15/2024 IGP, JAX HPV16 /18 performed by: Dee Thompson, Cytol ogist (ASCP ) Not Available [facility] ([facility]) [address] [place], [address], 09/15/2024 14:17:41 09/11/19 25 09/15/2024 IGP, JAX HPV16 /18 . . Not Available [facility] ([facility]) [address] [facility], [place], [address], 09/15/2024 14:17:41 09/11/19 25 09/15/2024 IGP, JAX HPV16 /18 note: Dee ochoa The Pap smear is a scree trinidad test desig latrice to aid in the detec tion of moe ligna nt and malig nant condi tions of the uteri ne cervi x. It is not a diagn ostic proce dure and shoul d not be used as the sole means of detec ting cervi thaddeus cance r. Both false -posi tive and false -nega tive repor ts do occur . Not Available [facility] ([facility]) [address] [place], [address], 09/15/2024 14:17:41 09/11/19 25 09/15/2024 IGP, JAX HPV16 /18 test methodology: Commen t This liqui d based ThinP rep(R ) pap test was scree latrice with the use of an image guide d nurys warner. Not Available [facility] ([facility]) [address] [place], [address], 09/15/2024 14:17:41 09/11/19 25 09/10/2024 tyron wet prep Yeast negati ve Not Available Main Office [address] [place] [address] [address], [place], [address], 09/10/2024 15:00:02 09/11/19 25 09/10/2024 wet mount Clue Cells negati ve Not Available Main Office [address] [place] [address] [address], [place], [address], 09/10/2024 15:00:02 09/11/19 25 09/10/2024 wet mount Yeast negati ve Not Available Main Office [address] [place] [address] [address], [place], [address], 09/10/2024 15:00:02 09/11/19 25 09/10/2024 wet mount Trich negati ve Not Available Main Office [address] [place] [address] [address], [place], [address], 09/10/2024 15:00:02 09/11/19 25 09/10/2024 wet mount WBC negati ve Not Available Main Office [address] [place] [address] [address], [place], [address], 09/10/2024 15:00:02 Result Notes None recorded. Problems Name Problem SNOMED Code Status Onset Date Resolution Date Notes Provider Name and Address Organization Details Recorded Time Uterine leiomyoma 11023124 Active 015 Sandhya ochoa, [address], [address], [place] [facility] 14:53:54 Chronic asthmatic bronchitis 861353145 Active 025 Sandhya ochoa, [address], [address], [place] [facility] 14:59:08 Problem Notes None recorded. Procedures Surgical History Date Name Laterality Status Provider Name and Address Organization Details Recorded Time 09/11/19 25 Date of Last Pap Smear completed Sandhya Toribio [address], [address], [place] [facility] 09/15/2024 14:41:13 09/13/19 23 abdominoplasty and liposuction completed Sandhya Toribio, [address], [address], [place] [facility] 09/10/2024 15:26:27 09/12/19 23 Colonoscopy completed Sandhya Toribio [address], [address], [place] [facility] 09/10/2024 15:26:42 01/02/20 21 Date of Last Mammogram completed Fanny Davenport [place] [facility] 04/18/2022 17:16:33 05/07/19 21 total knee replacement completed Sandhya Toribio [address], [address], [place] [facility] 09/10/2024 15:25:54 10/23/20 19 completed Isela Olivares MD [address] [place] [address] [address] [place], [address], [place] [facility] 03/15/2020 08:16:47 05/07/19 18 arthroscopy completed Sandhya Toribio, [address] [facility] [address] [place], [address], [place] [facility] 09/10/2024 15:25:32 09/11/19 12 embolization of uterine artery completed Sandhya Toribio, DO [address] [facility] [address] [place], [address], [place] [facility] 09/10/2024 15:20:37 dilation and curettage of uterus completed Isela Olivares MD [address] [place] [address] [address] [place], [address], [place] [facility] 02/22/2019 11:26:59 liposuction of subcutaneous tissue completed Isela Olivares MD [address] [place] [address] [address] [place], [address], [place] [facility] 04/25/2023 17:35:50 Imaging Results None recorded. Procedure Notes None recorded. Medical Equipment None Reported. Allergies No known drug allergies Medications Name Sig Start Date Stop Date Status Note LastModified by Organization Details LastModified Time celecoxib 200 mg capsule 04/04 completed Not Available Not Available Not Available cyclobenzap rine 10 mg tablet TAKE ONE TABLET BY MOUTH THREE TIMES A DAY NEEDED FOR MUSCLE SPASM 09/09 completed Not Available Not Available Not Available potassium chloride ER 10 mEq capsule,ext ended release TAKE 2 CAPSULES BY MOUTH TWICE A DAY WITH FOOD 04/25 completed Not Available Not Available Not Available paroxetine 10 mg tablet TAKE 1 TABLET BY MOUTH EVERY DAY FOR 90 DAYS, FOR MENOPAUSA L SYMPTOMS. active Not Available Not Available No t Available naproxen 375 mg tablet TAKE 1 TABLET BY MOUTH TWICE A DAY 09/09 completed Not Available Not Available Not Available azithromyci n 250 mg tablet TAKE 2 TABLETS BY MOUTH TODAY, THEN TAKE 1 TABLET DAILY FOR 4 DAYS 09/09 completed Not Available Not Available Not Available pravastatin 40 mg tablet TAKE 1 TABLET BY MOUTH EVERY DAY active Not Available Not Available No t Available hydrocodone 5 mg-acetamin ophen 325 mg tablet 09/09 completed Not Available Not Available Not Available ondansetron HCl 4 mg tablet 04/04 completed Not Available Not Available Not Available prednisone 20 mg tablet 40 MG (2 X 20 MG) ORALLY DAILY 09/10 completed Not Available Not Available Not Available terconazole 0.8 % vaginal cream apply cream to the vulva 2 times per day 04/04 completed Not Available Not Available Not Available penicillin V potassium 500 mg tablet TAKE 1 TABLET WITH FOOD EVERY 6 HOURS FOR SEVEM DAYS. TAKE MEDICINE UNTIL ALL GONE 04/25 completed Not Available Not Available Not Available acetaminoph en 300 mg-codeine 30 mg tablet TAKE 1 TABLET BY MOUTH EVERY 4-6 HOURS NEEDED PAIN 09/09 completed Not Available Not Available Not Available amoxicillin 500 mg tablet TAKE 1 TABLET BY MOUTH FOUR TIMES A DAY UNTIL FINISHED 09/09 completed Not Available Not Available Not Available dexamethaso ne sodium phosphate 0.1 % eye drops USE 1 DROP IN EACH EAR THREE TIMES A DAY 04/04 completed Not Available Not Available Not Available meloxicam 7.5 mg tablet TAKE 1 TABLET BY MOUTH DAILY NEEDED FOR PAIN 09/09 completed Not Available Not Available Not Available oxycodone-a cetaminophe n 5 mg-325 mg tablet TAKE 1 TABLET BY MOUTH EVERY 6 HOURS NEEDED FOR PAIN 09/09 completed Not Available Not Available Not Available tacrolimus 0.1 % topical ointment APPLY TO AFFECTED AREA TWICE A DAY 09/09 completed Not Available Not Available Not Available clotrimazol e-betametha sone 1 %-0.05 % topical cream PLEASE SEE ATTACHED FOR DETAILED DIRECTION S 09/09 completed Not Available Not Available Not Available triamterene 37.5 mg-hydrochl orothiazide 25 mg tablet 1 TABLET ORALLY EVERY MORNING PLEASE D/C THE FUROSEMID E AND POTASSIUM . THANK YOU active Not Available Not Available No t Available cephalexin 500 mg tablet TAKE 1 TABLET BY MOUTH EVERY 6 HOURS 09/09 completed Not Available Not Available Not Available mupirocin 2 % topical ointment APPLY TO AFFECTED AREA 3 TIMES A DAY 09/09 completed Not Available Not Available Not Available furosemide 20 mg tablet TAKE 2 TABLET BY MOUTH ON SUNDAY AND SUNDAY 1 TABLET DAILY ALL OTHER DAYS 09/09 completed Not Available Not Available Not Available gabapentin 100 mg capsule TAKE 1 CAPSULE BY MOUTH THREE TIMES A DAY 09/09 completed Not Available Not Available Not Available cefuroxime axetil 500 mg tablet TAKE 1 TABLET BY MOUTH EVERY 12 HOURS 09/09 completed Not Available Not Available Not Available albuterol sulfate HFA 90 mcg/actuati on aerosol inhaler INHALE 1 PUFF EVERY 4 HOURS NEEDED FOR SHORTNESS OF BREATH OR WHEEZING active Not Available Not Available No t Available ondansetron 4 mg disintegrat ing tablet DISSOLVE 1 TABLET BY MOUTH EVERY 6 HOURS NEEDED FOR NAUSEA 09/09 completed Not Available Not Available Not Available Klor-Con M20 mEq tablet,exte nded release TAKE 2 TABLETS BY MOUTH TWICE A DAY 09/09 completed Not Available Not Available Not Available hydrochloro thiazide 12.5 mg tablet TAKE 1 TABLET BY MOUTH EVERY DAY 09/09 completed Not Available Not Available Not Available cholecalcif rosalio (vitamin D3) 1,250 mcg (50,000 unit) capsule TAKE ONE TABLET BY MOUTH WEEKLY FOR 8 WEEKS. THEN MONTHLY FOR 2 MONTHS 09/09 completed Not Available Not Available Not Available potassium chloride ER 20 mEq tablet,exte nded release TAKE 2 TABLETS IN MORNING AND 1 TABLET IN EVENING active Not Available Not Available No t Available Fluzone Quad (PF) 60 mcg (15 mcg x 4)/0.5 mL IM syringe ADM 0.5ML IM UTD 09/09 completed Not Available Not Available Not Available Airsupra 90 mcg-80 mcg/actuati on HFA aerosol inhaler INHALE 2 PUFFS BY MOUTH ONCE A SINGLE DOSE MAY REPEAT UP TO 6 DOSES PER DAY (12 INHALATIO NS) active Not Available Not Available No t Available Vitals Date Recorded Body height Body mass index (BMI) Body weight Systolic And Diastolic Provider Name and Address Organization Details Last Updated DateTime 09/10/2024 170.18 cm 24.7 kg/m2 74401.44 g 116/72 mm[Hg] Romy RANGEL - [facility] 09/10/2024 14:41:14 Date Recorded Body height Body mass index (BMI) Body weight Systolic And Diastolic Provider Name and Address Organization Details Last Updated DateTime 03/15/2020 170.82 cm 24.7 kg/m2 31818.91 g 124/74 mm[Hg] Linda Sandoval [place] [facility] 03/15/2020 16:18:18 Date Recorded Body height Body mass index (BMI) Body weight Systolic And Diastolic Provider Name and Address Organization Details Last Updated DateTime 03/16/2021 170.82 cm 23.8 kg/m2 04437.07 g 120/72 mm[Hg] Aisha Mtz [place] [facility] 03/16/2021 16:10:40 Date Recorded Body weight Systolic And Diastolic Provider Name and Address Organization Details Last Updated DateTime 04/18/2022 43937.21 g 116/80 mm[Hg] Linda Sandoval [place] [facility] 04/18/2022 17:19:58 Date Recorded Body height Body mass index (BMI) Body weight Systolic And Diastolic Provider Name and Address Organization Details Last Updated DateTime 04/25/2023 170.18 cm 25.3 kg/m2 67804.53 g 110/72 mm[Hg] Romy Bergeron [place] [facility] 04/25/2023 17:22:31 Social History Question Answer Notes LastModified by Organizat ion Details LastModified Time Tobacco Smoking Status Current Some Day Smoker Fanny lipscomb [place] [facility] 04/18/2022 17:16:33 Is Blood Transfusion Acceptable In An Emergency? Yes [email or web address] Information not available 09/10/2024 What Is Your Level Of Caffeine Consumption? Occasional Coffee [email or web address] Information not available 09/10/2024 Have There Been Any Changes To Your Family Or Social Situation? No [email or web address] Information not available 09/10/2024 What Was The Date Of Your Most Recent Tobacco Screening? 09/10/2024 [email or web address] Information not available 09/10/2024 How Many Children Do You Have? 0 [email or web address] Information not available 04/25/2023 Do You Have Any Pets? No [email or web address] Information not available 09/10/2024 Do You Use Protection During Sex? Always [email or web address] Information not available 09/10/2024 What Is Your Relationship Status? [email or web address] Information not available 04/25/2023 Do You Use Your Seat Belt Or Car Seat Routinely? Yes [email or web address] Information not available 09/10/2024 Are You Passively Exposed To Smoke? Yes [email or web address] Information not available 09/10/2024 How Much Tobacco Do You Smoke? 0.25 PPD Information not available 04/18/2022 Has Tobacco Cessation Counseling Been Provided? Yes [email or web address] Information not available 09/10/2024 On What Date Was Tobacco Cessation Counseling Provided? 09/10/2024 [email or web address] Information not available 09/10/2024 How Many Years Have You Smoked Tobacco? 20 Information not available 04/18/2022 Sex: Unknown Functional Status Question Answer Note LastModified by Organizat ion Details LastModified Time Do you use any illicit or recreational drugs? No Information not available 04/18/2022 Do you or have you ever used any other forms of tobacco or nicotine? Yes [email or web address] Information not available 09/10/2024 What is your level of alcohol consumption? Occasional Information not available 02/22/2019 Are you currently employed? 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 [id number] [email or web address] Information not available 09/10/2024 Family History Relationship Description Onset Age of this Age Resolved Age Notes LastModified by Organization Details LastModified Time Father Diabetes mellitus Not available 2018 11:25:17 Mother Hypertensive disorder Not available 2018 11:25:26 Medical History Condition Response Other Y Arthritis Y Headaches Y Hypertension Y Phlebitis/Varicose Veins Y Gynecological History Statement/Question Response Abnormal Pap N Date of Last Mammogram 01/01/2021 Date of LMP 10/10/2015 STIs/STDs N HPV Vaccine N 02/26/2019 Current Control Method None Age at Menarche 14 If Post Menopausal, Age at Menopause 56 Sexually Active? Y Menses Monthly N Date of Last Pap Smear 09/10/2024 Sexual Problems? N LMP Unknown N Obstetrics History GPAL:G 1 P 0 0 1 0 Type Value Spontaneous 1 Total 1 Past Encounters Encounter ID Performer Location Encounter Start Date Encounter Closed Date Diagnosis/Indication Diagnosis SNOMED-CT Code Diagnosis ICD10 Code Diagnosis Note [id number] Isela Olivares MD Main Office [address] [place] [address] 02/26/2019 16:03:21 02/26/2019 16:40:12 Gynecologic examination 32535837 Z01.419 Screening for malignant neoplasm of breast 736892134 Z12.39 Edema 739936642 R60.9 Candidiasis of skin 4988 3006 B37.2 [id number] Isela Olivares MD Main Office [address] [facility] [address] [address] [facility] [address] [place] [address] 03/15/2020 16:07:57 03/15/2020 16:54:24 Gynecologic examination 38495469 Z01.419 Screening for malignant neoplasm of breast 056300711 Z12.39 [id number] Isela Olivares MD Main Office [address] [facility] [place] [address] 03/16/2021 15:57:10 03/16/2021 16:39:00 Gynecologic examination 39040450 Z01.419 Screening for malignant neoplasm of breast 349963133 Z12.39 Screening for malignant neoplasm of cervix 359839932 Z12.4 Abscess of face 45950096 4 L02.01 [id number] Isela Olivares MD Main Office [address] [facility] [address] [place] [address] 04/18/2022 17:15:00 04/18/2022 17:46:39 Gynecologic examination 33559787 Z01.419 Screening for malignant neoplasm of breast 791179515 Z12.39 Uterine leiomyoma 147100 05 D25.9 Menopausal symptom 61459 002 N95.1 Atrophic vaginitis 55982 000 N95.2 [id number] Isela Olivares MD Main Office [email or web address] [place] [address] 04/25/2023 16:59:40 04/26/2023 08:40:35 Gynecologic examination 10309148 Z01.419 Screening for malignant neoplasm of breast [id number] Z12.39 Menopausal symptom 39358 002 N95.1 Samples of Veozah -samplesSt op paroxetine Swelling o f bilateral lower limbs [id number] M79.89 Compressio n garment [id number] Sandhya Toribio , DO Main Office [address] [place] [address] [place] [address] 09/10/2024 14:13:49 09/11/2024 09:49:27 Gynecologic examination [id number] Z01.419 Screening for malignant neoplasm of cervix [id number] Z12.4 Z11.3 CALL OFFICE IN 4 WEEKS following pap for results if you hasn't heard from us Followup for WW or sooner as needed Screening for malignant neoplasm of breast [id number] Z12.31 Vaginal discharge 008114 006 N89.8 Avoid stressors for vaginitis. Written informatio n given.Cons ider Probiotics for vaginal health-Act kourtney yogurt daily vs pills.Amaz on Probiotics and Boric Acid VAGINAL PILL after sex or with vaginal odor complaints has work for many patients Health Concerns Section Related Observation LastModified by Organization Detai ls LastModified Time None Recorded Concern Status LastModified by Organization Details LastModified Time None Recorded Advance Directives Directive None Recorded Payers Insurance Date Sequence Insurance Name Policy Number Policy Haas Covered Member ID Haas Member ID Guarantor Name 03/20/2024 1 [employer] ([place]) [id number] [facility] [id number] [facility] 03/20/2024 1 [facility]MANA [facility]PPO[facility] [id number] 09/09/2024 1 [place] [id number] [facility] [id number] [facility] 09/11/2024 1 [facility] [id number] [facility] 09/11/2024 1 [facility] [employer] [facility] (PPO) [id number] [facility] [id number] [facility] 03/20/2024 1 [place] [id number] [facility] [id number] Stefanie Roger Notes Date Note Type Note Provider Name and Address Organization Details Recorded Time 03/15/2020 text/html Annual GYNReport ed by PatientHistoryFor history, patient reportsno gynecologic complaintsandno change in interval history.Genitourinary symptomsFor urinary symptoms, patient reportsno hematuriaandno incontinence.Breast symptomsFor breast, patient reportsno breast pain,no breast lump, andno nipple discharge.Endocrine symptomsFor menopausal symptoms, patient reportsno menopausal symptoms.Psychological symptomsFor psychological symptoms, patient reportsno depressionandno anxiety.Preventative measuresFor preventive measures, patient reportsencourage self breast examination,encourage regular exercise,encourage regular mammograms starting age 40, andfollowed with q3 year pap smear and high risk hpv typing.ROS as noted in the [facility] Isela Olivares MD [address] [place] [address], [phone], [facility] 03/15/2020 16:30:50 03/16/2021 text/html Annual GYNReport ed by PatientHistoryFor history, patient reportsno gynecologic complaintsandno change in interval history.Genitourinary symptomsFor urinary symptoms, patient reportsno hematuriaandno incontinence. For vulva, patient reportsno genital lesion. For vagina, (has a brown discharge, has odor, unsure if fishy, not a fresh feeling).Breast symptomsFor breast, patient reportsno breast pain,no breast lump, andno nipple discharge.Endocrine symptomsFor sexual complaints, patient reportsno sexual complaints,no pain during intercourse, andnormal libido. For menopausal symptoms, patient reportsno menopausal symptomsandnormal vaginal lubrication.Psychologic al symptomsFor psychological symptoms, patient reportsno depression,no anxiety, andno pmdd.ROS as noted in the [facility] Isela Olivares MD [address] [place] [address] [address] [place], [address], [employer] [facility] 03/16/2021 16:27:50 04/18/2022 text/html Annual GYNReport ed by PatientHistoryFor history, patient reportsno gynecologic complaintsandno change in interval history.Genitourinary symptomsFor urinary symptoms, patient reportsno hematuriaandno incontinence. For vulva, patient reportsno genital lesion. For vagina, patient reportsnormal vaginal discharge(dark brown discharge itches,. monistat, helped a little).Breast symptomsFor breast, patient reportsno breast pain,no breast lump, andno nipple discharge.Endocrine symptomsFor menopausal symptoms, patient reportshot flashesandinsomnia due to night sweatsbut reportsnormal vaginal lubrication(bearable).P sychological symptomsFor psychological symptoms, patient reportsno depressionandno anxiety.Preventative measuresFor preventive measures, patient reportsencourage self breast examination,encourage regular exercise,encourage regular mammograms starting age 40, andfollowed with q3 year pap smear and high risk hpv typing. Isela Olivares MD [address] [place] [address], [phone], [facility] 04/18/2022 17:40:17 04/25/2023 text/html Annual GYNReport ed by PatientHistoryFor history, patient reportsno gynecologic complaintsandno change in interval history.Genitourinary symptomsFor vagina, patient reportsvaginal itchingbut reportsnormal vaginal discharge(discharge, wears liner daily). For urinary symptoms, patient reportsno hematuriaandno incontinence. For vulva, patient reportsno genital lesion.Breast symptomsFor breast, patient reportsno breast pain,no breast lump, andno nipple discharge.Endocrine symptomsFor menopausal symptoms, patient reportshot flashesandinsomnia due to night sweats. Isela Olivares MD [address] [place] [address], [phone], [place] [facility] 04/25/2023 17:44:14 09/10/2024 text/html Vaginal/Vulvar ProblemReported by Patient Vaginal DischargeReported by PatientHPIFor location, patient reportsvagina.PRETTY SOAP, ALWAYS Annual GYNReported by PatientHistoryFor history, patient reportsno gynecologic complaintsandno change in interval history.Genitourinary symptomsFor urinary symptoms, patient reportsno hematuriaandno incontinence. For vulva, patient reportsno genital lesion. For vagina, patient reportsnormal vaginal discharge(discharge, wears liner daily).Breast symptomsFor breast, patient reportsno breast pain,no breast lump, andno nipple discharge.Contraception For current contraception, patient reportssatisfied with current contraception.Endocrine symptomsFor menopausal symptoms, patient reportshot flashesandinsomnia due to night sweats. For sexual complaints, patient reportsno sexual complaints,no pain during intercourse, andnormal libido.Preventative measuresFor preventive measures, patient reportsencourage self breast examination,encourage regular exercise, andfollowed with q3 year pap smear and high risk hpv typing.ROS as noted in the HPI Sexually active w/. Denies complaints.as long as he can get it goingNo medical or surgical changes over last yearvd uses Vagisil foam without problems Sandhya Toribio, DO [address] [facility] [facility] [address], [place], [address], [place] [facility] 09/10/2024 15:27:11 OBGyn Episode No OBEpisode recorded.
== END 2024-11-28 08:05 | disposition home or self-care (01) ==
PROVIDERS: PCP Internal Medicine
DX: Z12.31 Encounter for screening mammogram for malignant neoplasm of breast (principal)
CPT/HCPCS: 77063; 77067

== ENCOUNTER 2025-04-13 15:45 | Emergency (ER) | payer OTHER, SELFPAY ==
--- NOTE | ~2025-04-13 | XR_ITS ---
EXAMINATION: XR knee RT min 4V DATE: 04/13/2025 18:12 INDICATION: Trauma due to fall TECHNIQUE: 3 views of the right knee were obtained. COMPARISON: Lower leg x-ray same date FINDINGS: Osteopenic bones. Hairline fracture of the proximal shaft of the fibula is noted again similar to the findings of lower leg. Arthritis of medial compartment of the knee. IMPRESSION: 1. Osteopenic bones. Please correlate with DEXA densitometry. 2. Hairline fracture of proximal shaft of the right fibula. Reviewed, dictated and finalized at location T. HOST
--- NOTE | ~2025-04-13 | XR_ITS ---
EXAMINATION: XR tibia fibula RT 2V DATE: 04/13/2025 18:13 INDICATION: Trauma due to fall TECHNIQUE: Views of right lower leg were obtained. COMPARISON: None. FINDINGS: Diffusely osteopenic bones. Hairline fracture of the proximal shaft of the fibula is suspected. No acute fracture of the tibia. IMPRESSION: 1. Suspect hairline fracture of the proximal shaft of the fibula. 2. Osteopenic bones. Please correlate with DEXA densitometry. Reviewed, dictated and finalized at location T. LITIGATION PARALEGAL
[2025-04-13 16:20] VITALS: BP 102/60; PULSE 80; RESP 16; TEMP 36.6; O2SAT 98
--- NOTE | 2025-04-13 17:45 | ED_ITS ---
HPI - General Adult General Chief complaint: Fall <CYNTHIA Suarez - Last Filed: 04/13/25 17:53> Stated complaint: fell 2 steps down, right leg pain <CYNTHIA Suarez - Last Filed: 04/13/25 17:53> Time Seen by Provider: 04/13/25 18:19 <CYNTHIA Suarez - Last Filed: 04/13/25 17:53> Focused HPI: 64 year old female presenting after a fall down her steps having missed the last two steps. She is reporting pain in the back of her right leg stating that she was not able to bear weight after she fell. Denies hitting her head and numbness/tingling. GENERAL: No acute distress. HEAD: Normocephalic, atraumatic. CHEST: Clear to auscultation. ?No respiratory distress. HEART: Regular rate and rhythm.? NEURO: ?Alert and oriented x3. EXTREMITIES: Limited ROM and strength in right extremity due to pain. Mild swelling and warmth. TTP. Patient screened in triage and initial orders placed.? ?Additional care and disposition to be based upon?diagnostic testing and treatment. <CYNTHIA Suarez - Last Filed: 04/13/25 17:53> History of Present Illness HPI narrative: agree with HPI <Shari Corral MD - Last Filed: 04/13/25 19:14> Related Data Home medications: Home Medications ?Medication ?Instructions ?Recorded ?Confirmed ?Last Taken ?Type aspirin 81 mg tablet,delayed 81 mg PO DAILY 12/03/20 0 11/05/24 Unknown History release (Adult Aspirin Regimen) turmeric 400 mg capsule mg PO 10/06/22 11/05/24 Unkn own History B6 0.85 mg-folic 200 tablet PO 10/25/23 11/05/24 Unknown History [id number] oral chewable tablet (Neuriva Plus) cholecalciferol (vitamin D3) 50 50 mcg PO DAILY Unknown History mcg (2,000 unit) capsule <CYNTHIA Suarez - Last Filed: 04/13/25 17:53> Allergies/adverse reactions: Allergies Allergy/AdvReac Type Severity Reaction Status Date / Time No Known Allergies Allergy Verified 07/31/24 14:37 <CYNTHIA Suarez - Last Filed: 04/13/25 17:53> Review of Systems Review of Systems: All systems reviewed & are unremarkable except as noted in HPI and below <Shari Corral MD - Last Filed: 04/13/25 19:14> [facility] Past Medical History Medical History: Medical History (Updated 04/13/25 @ 18:41 by Shari Corral MD) Right wrist pain Right hand pain BMI 25.0-25.9,adult Ecchymosis Abdominal mass, left upper quadrant Sinus pressure Vision changes Dry skin Paresthesia of left leg Encounter for routine adult health examination with abnormal findings Dyslipidemia Follow up Vitamin D deficiency Breast cancer screening Post-menopausal Encounter to establish care On parts counterman drug therapy BMI 23.0-23.9, adult <CYNTHIA Suarez - Last Filed: 04/13/25 17:53> Surgical History Surgical History: Surgical History Knee joint replacement status (~2020) <CYNTHIA Suarez - Last Filed: 04/13/25 17:53> Social History Social History: Social History Smoking packs per day: 0.5 Smoking cigarettes per day: 10.0 Years smoked: 25 Smoking pack-years: 12.50 Smoking status: Current every day smoker Tobacco type: cigarettes Second hand tobacco smoke exposure: Yes Alcohol intake: current Alcohol use details: OCCASSIONAL - Social Substance use: current Substance use type: marijuana Lack of Transportation: No Lack of Food: Never True Current Housing: I Have Housing Concerned About Future Housing: No Difficulty Paying Gas/Electric Bills: No Difficulty Paying for Meds: No Currently Unemployed: No Education: Associate Degree Difficulty w/ Childcare or Family Care: No Living arrangements: with family Gender identity (if verbalized by the patient): Female Spiritual care concerns: No <CYNTHIA Suarez - Last Filed: 04/13/25 17:53> Exam Narrative: EXAMINATION OF ORGAN SYSTEMS/BODY AREAS: Constitutional: Vital signs per nursing GENERAL: Appears uncomfortable HEAD: Normal with no signs of head trauma. EYES: EOMI, conjunctiva normal ENT: Hearing grossly intact LUNGS: Nonlabored breathing. HEART: [Regular rate and rhythm], normal DP pulse ABD: [Soft], [nontender to palpation] EXT: Normal range of motion; tenderness to palpation to the anterior knee and lower leg SKIN: [No rashes or lesions.] NEURO: [Alert. No gross focal sensory or strength deficits.] PSYCH: Normal affect <Shari Corral MD - Last Filed: 04/13/25 19:14> Course Vital Signs Vital signs: Vital Signs Temperature 97.9 F 04/13/25 16:20 Pulse Rate 80 04/13/25 16:20 Respiratory Rate 16 04/13/25 16:20 Blood Pressure 102/60 04/13/25 16:20 Pulse Oximetry 98 04/13/25 16:20 Temperature 97.9 F 04/13/25 16:20 Pulse Rate 80 04/13/25 16:20 Respiratory Rate 16 04/13/25 16:20 Blood Pressure 102/60 04/13/25 16:20 Pulse Oximetry 98 04/13/25 16:20 <CYTNHIA Suarez - Last Filed: 04/13/25 17:53> Vital Signs Temperature 97.9 F 04/13/25 16:20 Pulse Rate 80 04/13/25 16:20 Respiratory Rate 16 04/13/25 16:20 Blood Pressure 102/60 04/13/25 16:20 Pulse Oximetry 98 04/13/25 16:20 Temperature 97.9 F 04/13/25 16:20 Pulse Rate 80 04/13/25 16:20 Respiratory Rate 16 04/13/25 16:20 Blood Pressure 102/60 04/13/25 16:20 Pulse Oximetry 98 04/13/25 16:20 <Shari Corral MD - Last Filed: 04/13/25 19:14> MDM MDM Narrative Medical decision making narrative: Patient presents here after falling on the stairs, hurting her right knee. She is neurovascularly intact, there is tenderness to the knee, no obvious deformity. X-ray does show proximal fibular fracture. Discussed with orthopedist, knee immobilizer with follow-up in clinic and return precautions. <Shari Corral MD - Last Filed: 04/13/25 19:14> Differential Diagnosis Differential Diagnosis: Fracture, sprain <Shari Corral MD - Last Filed: 04/13/25 19:14> Imaging Data Radiologist's impression: ITS Impressions Tibia/Fibula X-Ray 04/13/25 18:25 IMPRESSION: 1. Suspect hairline fracture of the proximal shaft of the fibula. 2. Osteopenic bones. Please correlate with DEXA densitometry. Knee X-Ray 04/13/25 18:27 IMPRESSION: 1. Osteopenic bones. Please correlate with DEXA densitometry. 2. Hairline fracture of proximal shaft of the right fibula. <CYNTHIA Suarez - Last Filed: 04/13/25 17:53> ITS Impressions Tibia/Fibula X-Ray 04/13/25 18:25 IMPRESSION: 1. Suspect hairline fracture of the proximal shaft of the fibula. 2. Osteopenic bones. Please correlate with DEXA densitometry. Knee X-Ray 04/13/25 18:27 IMPRESSION: 1. Osteopenic bones. Please correlate with DEXA densitometry. 2. Hairline fracture of proximal shaft of the right fibula. <Shari Corral MD - Last Filed: 04/13/25 19:14> Discharge Plan Discharge Clinical Impression: Knee sprain, Fibula fracture <CYNTHIA Suarez - Last Filed: 04/13/25 17:53> Patient Disposition: Home <CYNTHIA Suarez - Last Filed: 04/13/25 17:53> Condition: Stable <CYNTHIA Suarez - Last Filed: 04/13/25 17:53> Instructions: Knee Sprain (ED), Leg Fracture (ED) <CYNTHIA Suarez - Last Filed: 04/13/25 17:53> Additional Instructions: Please follow-up with orthopedist, use ice on your injury, keep it propped up, try not to put any weight on it and use the knee immobilizer. Follow-up with orthopedist and come back to the ER for any further issues. <CYNTHIA uSarez - Last Filed: 04/13/25 17:53> Patient Language: Indonesian <CYNTHIA Suarez - Last Filed: 04/13/25 17:53> Prescriptions: New oxycodone 5 mg tablet 5 mg PO Q8H PRN (Reason: pain) Qty: 10 0RF methocarbamol 750 mg tablet 750 mg PO TID PRN (Reason: muscle spasm) Qty: 30 0RF No Action turmeric 400 mg capsule PO Neuriva Plus 0.85 mg-200 mcg-1.2 mcg tablet,chewable PO cetirizine [Zyrtec] 10 mg tablet 10 mg PO DAILY Qty: 30 0RF aspirin [Adult Aspirin Regimen] 81 mg tablet,delayed release (DR/EC) 81 mg PO DAILY naproxen 375 mg tablet 375 mg PO BID Qty: 14 0RF paroxetine HCl 10 mg tablet 10 mg PO DAILY Qty: 90 1RF potassium chloride 20 mEq tablet extended release See Rx Instructions .ROUTE .COMPLEX Qty: 270 2RF Dose Instruction: TAKE 2 TABLETS BY MOUTH TWICE A DAY Rx Instructions: TAKE 40MEQ in the AM and 20 MEQ in the PM albuterol sulfate [Ventolin HFA] 90 mcg/actuation HFA aerosol inhaler 1 inh inhalation Q4H PRN (Reason: shortness of breath or wheezing) Qty: 8.5 1RF triamterene-hydrochlorothiazid 37.5-25 mg tablet 1 tablet PO QAM Qty: 90 1RF Rx Instructions: Please D/C the Furosemide and Potassium. Thank you pravastatin 40 mg tablet 40 mg PO DAILY Qty: 90 1RF cholecalciferol (vitamin D3) 1,250 mcg (50,000 unit) capsule See Rx Instructions .Route .COMPLEX Qty: 10 0RF Rx Instructions: Take 1 tablet weekly for 8 wks, then monthly for 2 months; cholecalciferol (vitamin D3) 50 mcg (2,000 unit) capsule 50 mcg PO DAILY <CYNTHIA Suarez - Last Filed: 04/13/25 17:53> Follow-up/Referrals: David Amanda MD [Physician, Orthopedics] - 3 Days Boni Huntley MD [Primary Care Provider, Internal Medicine] <CYNTHIA Suarez - Last Filed: 04/13/25 17:53>
[2025-04-13] MEDS: ACETAMINOPHEN 500 MG TABLET 1000 MG PO (19:32)
[2025-04-13] MEDS: oxyCODONE HCL (*CRX) 5 MG TAB IR PO (19:33)
[2025-04-13] MEDS: KETOROLAC 30 MG/ML VIAL (*BKC) 15 MG IM (19:33)
--- OUTSIDE RECORDS SUMMARY | 2025-04-13 20:24 | XMS_ITS | Clinical Summary ---
Author Organization [facility] Address [address] [place] [address] Care Team Providers Care Chocolate Coater Name Role Phone Chris Solorio MD Primary Care Provider [phone] Source Comments [facility],non-owned Affiliates and Associated Physician Practices is amultiple site organization consisting of ambulatory clinics and hospital sitesin [place], [place], [place] and [place]. This disclosure is being madepursuant to the Care Everywhere program and may not contain all information available regarding this patient. 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 Gender Identity Not on file Sexual Orientation [...] 05/01/1980 DTAP/TDAP/TD VACCINES (1 - Tdap) 1981 PAP SMEAR 1983 Cervical Cancer Screening 1992 PAP with HPV 1992 PNEUMOCOCCAL VACCINE 50+ (1 of 1 - PCV) 2012 ZOSTER VACCINE (1 of 2) 2012 DEPRESSION SCREENING 05/07/2024 COVID-19 VACCINE (1 - 2024-2 6 season) 2025 INFLUENZA VACCINE (#1) 2025 Respiratory Syncytial Virus [...] patient's age to complete this topic Insurance TIANAEM Care Teams Chocolate Coater Relationship Specialty Start Date End Date Chris Solorio MD [facility] [place] [address] PCP - General Family Medicine 07/24/13
--- OUTSIDE RECORDS SUMMARY | 2025-04-13 20:24 | XMS_ITS | Clinical Summary ---
Author Organization [facility] Address [address] [place] [address] Care Team Providers Care Wallpaper Printer Helper Name Role Phone Darryl Navarro DO Primary Care Provider Ash [place] PA Unavailable [phone] Allergies No known active allergies Medications hydroCHLOROthia [...] (07/15/2018): Added automatically from request for surgery [id number] Resolved Problems Problem Noted Date Diagnosed Date Resolved Date Primary osteoarthritis of left knee 05/26/2020 12/22/2020 Immunizations Immunization Administration Dates Next Due [employer] SARS-CoV-2 Monovalent Vaccination (12+ Yrs) PURPLE 06/25/2020,06/04/2020 [...] on file 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 Gender Identity Not on file Sexual Orientation [...] on file Medical Devices Implanted Type Area Contact Center Representative Device Identifier Shelf Expiration Date Model / Serial / Lot [employer] 6195-1-001 Cement Bone Simplex Gentamicin High Viscosity 40gm - [id number] Implanted:Qty: 1 on 12/21/2020 by Jf Solis MD at [facility] Left: Knee [employer] 09/03/2021 6195-1-001 / / [id number] [employer] [id number] Attune Cruciate Retain Cementless Knee Left 6 Narrow Component - [id number] Implanted:Qty: 1 on 12/21/2020 by Jf Solis MD at [facility] Left: Knee [employer] 04/05/2031 [id number] / / [id number] [employer] [id number] Attune S+ Cement Fix Bearing Knee 6 Baseplate Tibial - [id number] Implanted:Qty: 1 on 12/21/2020 by Jf Solis MD at [facility] Left: Knee [employer] 2029 [id number] / / [id number] [employer] [id number] Attune 5mm Cruciate Retaining Fix Bearing Knee 6 Insert Tibial - [id number] Implanted:Qty: 1 on 12/21/2020 by Jf Solis MD at [facility] Left: Knee [employer] 09/03/2025 [id number] / / [id number] Insurance [facility] ANTHEM ACCESS BLUE ACCESS OOS BLUE ACCESS OOS Advance Directives For more information, please contact: [phone] * Full Code (Latest Code Status on File) Date Activated Date Inactivated Comments 12/21/2020 4:24 PM 12/22/2020 6:53 PM Care Teams Wallpaper Printer Helper Relationship Specialty Start Date End Date Darryl Navarro DO PCP - General Internal Medicine 05/14/20 Ash [place] PA Physician Catalog Specialist Orthopedic Surgery 12/21/20
== END 2025-04-13 19:45 | disposition home or self-care (01) ==
LOC: ANHED 19:02
PROVIDERS: Emergency Provider Emergency Medicine; PCP Internal Medicine
DX: S82.831A Other fracture of upper and lower end of right fibula, initial encounter for closed fracture (principal); S83.91XA Sprain of unspecified site of right knee, initial encounter; Z79.82 Long term (current) use of aspirin; W10.9XXA Fall (on) (from) unspecified stairs and steps, initial encounter
CPT/HCPCS: 73564; 73590; 96372; 99284; A9270; J1885

== ENCOUNTER 2025-04-17 10:33 | Inpatient (IN) | payer OTHER, SELFPAY ==
[2025-04-17] VITALS (9 sets, daily range): BP systolic 103–148; BP diastolic 60–87; PULSE 67–87; RESP 16–18; TEMP 36.3–37.1; O2SAT 94–100; BMI 26.9
--- NOTE | ~2025-04-17 | CT_ITS ---
EXAM/PROCEDURE: CT cervical spine wo con HISTORY: fall 2 days ago, [place] COMPARISON: None available. TECHNIQUE: Cervical spine CT FINDINGS: No fracture lucency or traumatic malalignment C1-C7. Advanced degenerative changes present throughout the mid and lower cervical spine. No large disc herniation or severe spinal canal stenosis seen. No prevertebral or paraspinal soft tissue swelling or hematoma seen. IMPRESSION: No fracture lucency C1-C7. Reviewed, dictated and finalized at location A. UTER HARDWARE DESIGNER IMPRESSION: No fracture lucency C1-C7.
--- NOTE | ~2025-04-17 | CT_ITS ---
EXAM/PROCEDURE: CT hip RT wo con HISTORY: R femoral neck fx, request by ortho COMPARISON: None available. TECHNIQUE: Right hip FINDINGS: Mildly comminuted right femoral neck fracture with approximately 1.5 cm foreshortening of the distal femur fragment and moderately severe varus angulation. No pathologic lesion is seen. Moderately extensive soft tissues on about the fracture site and probable small to moderate-sized effusion. No large hematoma seen. No other fracture seen. IMPRESSION: Mildly comminuted right femoral neck fracture with foreshortening and varus angulation. No other fracture or pathologic lesion seen. No large hematoma. Reviewed, dictated and finalized at location A. GER MANAGED CARE IMPRESSION: Mildly comminuted right femoral neck fracture with foreshortening and varus ang ulation. No other fracture or pathologic lesion seen. No large hematoma.
--- NOTE | ~2025-04-17 | XR_ITS ---
EXAMINATION: XR hip RT 2V w AP pelvis DATE: 04/17/2025 11:14 INDICATION: Injury TECHNIQUE: Right hip x-rays were obtained. COMPARISON: None. FINDINGS: Mildly impacted right femoral neck fracture with varus angulation. No pathologic lesion seen. No other definite fractures. Posterior pelvic bones largely obscured by overlying stool and bowel gas. 4.7 x 3.5 cm calcified mass in the right hemipelvis consistent with involuted fibroid. IMPRESSION: 1. Right femoral neck fracture slightly impacted with varus angulation. Reviewed, dictated and finalized at location A. CONVEYOR OPERATOR
--- NOTE | ~2025-04-17 | XR_ITS ---
EXAMINATION: XR ankle RT 2V DATE: 04/17/2025 12:38 INDICATION: Injury TECHNIQUE: Right ankle were obtained. COMPARISON: None. FINDINGS: No displaced fracture or dislocation. No large joint effusion or severe soft tissue swelling. IMPRESSION: 1. No displaced fracture lucency. Reviewed, dictated and finalized at location A. HICS EDIT TECHNICIAN
--- NOTE | ~2025-04-17 | XR_ITS ---
EXAMINATION: XR hip RT 2V w AP pelvis, 04/18/2025 13:30 NURSING STAFF DEVELOPMENT COORDINATOR HISTORY: RIGHT BIPOLAR HIP, POST OP COMPARISON: No comparisons available. Findings: No acute fracture or malalignment. Right arthroplasty unremarkable Soft tissues unremarkable. Impression: No acute fracture or malalignment. Reviewed, dictated and finalized at location P. ING STAFF DEVELOPMENT COORDINATOR Impression: No acute fracture or malalignment.
--- NOTE | ~2025-04-17 | CT_ITS ---
EXAM/PROCEDURE: CT ankle RT wo con HISTORY: prox fibular fx, r/o ankle fx, request by ortho COMPARISON: None available. TECHNIQUE: Right ankle CT FINDINGS: No fracture lucency. No subluxation or dislocation. Diffuse degenerative and osteopenic changes throughout the bones. Moderate edematous appearing changes about the hindfoot and ankle as well as visualized portions of the midfoot. IMPRESSION: Moderately extensive soft tissue swelling and/or injury with no fracture lucency in the right ankle. Reviewed, dictated and finalized at location A. CTOR ON AIR IMPRESSION: Moderately extensive soft tissue swelling and/or injury with no fracture lucenc y in the right ankle.
--- NOTE | ~2025-04-17 | CT_ITS ---
EXAMINATION: CT brain wo con DATE: 04/17/2025 12:15 INDICATION: Injury TECHNIQUE: Computed tomography (CT) of the head was performed without intravenous contrast. The dose-length product was 681.00 mGy-cm. COMPARISON: None FINDINGS: 1.5 cm cystic appearing focus in the left mesial temporal region at the level of the ronnie may represent old infarction or sequela from previous inflammation/infection. Small arachnoid cysts may also have a similar appearance. No gross intracranial mass effect or hemorrhage. No large acute ischemic event. No depressed skull fracture. Air-fluid levels are present in the maxillary sinuses right greater than left. Extensive opacification in the ethmoid air cells. Irregular appearance of the medial wall of the right maxillary sinus. IMPRESSION: 1. No gross intracranial mass effect or hemorrhage; probable old infarction versus small cystic lesion in the mesial temporal region on the left side. 2. Extensive opacification of the maxillary air cells with somewhat irregular appearance of the medial wall of the right maxillary sinus. Query if patient has experienced facial trauma. If there is concern for facial injury, facial bone CT recommended. Reviewed, dictated and finalized at location A. ERSITY PRESIDENT IMPRESSION: 1. No gross intracranial mass effect or hemorrhage; probable old infarction jhon alexander small cystic lesion in the mesial temporal region on the left side. 2. Extensive opacification of the maxillary air cells with somewhat irregular a ppearance of the medial wall of the right maxillary sinus. Query if patient has experienced facial trauma. If there is concern for facial injury, facial bone CT recommended.
--- NOTE | ~2025-04-17 | XR_ITS ---
EXAMINATION: XR chest 1V DATE: 04/17/2025 11:13 INDICATION: Preop TECHNIQUE: A single frontal view of the chest was obtained. COMPARISON: July 23, 2024 FINDINGS: Left hilar fullness may represent vascular ectasia, though lymphadenopathy is not excluded. The remainder the exam appears stable. IMPRESSION: 1. Possible vascular ectasia versus lymphadenopathy in the left hilar region. This appears more pronounced compared to the July 23 exam. 2. Consider correlation with chest CT for complete evaluation. Reviewed, dictated and finalized at location A. L DATABASE ADMINISTRATOR IMPRESSION: 1. Possible vascular ectasia versus lymphadenopathy in the left hilar region. T his appears more pronounced compared to the July 23 exam. 2. Consider correlation with chest CT for complete evaluation.
--- NOTE | 2025-04-17 10:44 | ECG_ITS ---
Test Date: 2025-04-17 11:47:18 Measurements Intervals Ladd Rate: 69 P: 63 CA: 175 QRS: 38 QRSD: 83 T: 67 QT: 408 QTc: 439 Interpretive Statements SINUS RHYTHM WITH SINUS ARRHYTHMIA NORMAL ECG No previous ECG available for comparison Electronically Signed On 04-17-2025 12:41:02 INVENTORY TECHNICIAN by Saran Leung D.O.
[2025-04-17] MEDS: HYDROmorphone HCL INJ (*CRX) 1 MG/ML SYR 0.5 MG IV PUSH ×4 (10:56→20:54)
[2025-04-17 10:58] LABS: Hematocrit 37.9 % (37.0-47.0); Hemoglobin 12.1 g/dL (12.0-15.0); Immature Granulocyte Percent A 0.3 % (0-0.5); Lymphocytes Absolute Auto 1.00 K/mm3 (0.9-3.2); Mean Corpuscular HGB Conc 31.9 g/dl (32-36); Mean Corpuscular Hemoglobin 30.3 pg (26-34); Mean Corpuscular Volume 94.8 fl (80-100); Nucleated Red Blood Cells Absolute Auto 0.000 K/mm3 (0.0-0.012); Nucleated Red Blood Cells Perc 0.0 % (0.0-0.2); Platelet Count Result 195 k/mm3 (150-375); Red Blood Count 4.00 M/mm3 (4.2-5.4); White Blood Count 7.3 K/mm3 (4.5-10.0)
[2025-04-17 11:17] LABS: Alanine Aminotransferase 21 U/L (6-35); Albumin Level 3.7 g/dL (3.5-5.1); Alkaline Phosphatase 84 U/L (38-126); Anion Gap 3 mmol/L (4-12); Aspartate Amino Transferase 35 U/L (14-36); Bilirubin,Total 0.8 mg/dL (0.2-1.3); Blood Urea Nitrogen 19 mg/dL (7-17); Calcium 8.9 mg/dL (8.4-10.2); Carbon Dioxide 29 mmol/L (22-30); Chloride 108 mmol/L (98-107); Estimated CRCL calculation 55 ml/min; Estimated Glomerular Filt Rate 58; Glucose 105 mg/dL (65-110); Potassium 3.2 mmol/L (3.4-5.0); Sodium 140 mmol/L (137-145); Total Protein 7.5 g/dL (6.3-8.2)
[2025-04-17 11:18] LABS: INR 1.1; Prothrombin Time 13.7 Seconds (11.1-14.7)
[2025-04-17 11:19] LABS: Partial Thromboplastin Time 33.0 Seconds (22.3-36.8)
--- NOTE | 2025-04-17 11:47 | ED_ITS ---
HPI - General Adult General Chief complaint: Recheck/Abnormal Lab/Rx <Virginie Arreaga PA-C - Last Filed: 04/17/25 13:48> Stated complaint: hip fracture?? <Virginie Arreaga PA-C - Last Filed: 04/17/25 13:48> Time Seen by Provider: 04/17/25 10:43 <Virginie Arreaga PA-C - Last Filed: 04/17/25 13:48> Source: patient <Virginie Arreaga PA-C - Last Filed: 04/17/25 13:48> Mode of arrival: EMS <SABRINA Ramos Last Filed: 04/17/25 13:48> Limitations: no limitations <Virginie Arreaga PA-C - Last Filed: 04/17/25 13:48> History of Present Illness HPI narrative: Patient is a 64-year-old female who presents the ED via EMS with report of right hip pain. Patient reports she had a fall on Sunday and sustained a proximal right fibular fracture. She then had another fall on Sunday in which her was trying to help her and they fell together. She landed on her right hip at that time. She has been unable to ambulate or put weight on her right leg since then. Was seen at Dr. Amanda's office today and had repeat imaging performed, which showed possible R hip fx. She was then sent here for further evaluation. Patient does complain of pain to her right groin/hip. She did hit her head as well with the fall on Sunday. Denied LOC. Denies current headache. Denies numbness. <Virginie Arreaga PA-C - Last Filed: 04/17/25 13:48> Related Data Home medications: Home Medications ?Medication ?Instructions ?Recorded ?Confirmed ?Last Taken ?Type aspirin 81 mg tablet,delayed 81 mg PO DAILY 12/03/2006/18/24 Unknown History release (Adult Aspirin Regimen) turmeric 400 mg capsule mg PO 10/06/22 04/17/25 Unkn own History B6 0.85 mg-folic 200 tablet PO 10/25/23 04/17/25 Unknown History [id number] oral chewable tablet (Neuriva Plus) cholecalciferol (vitamin D3) 50 50 mcg PO DAILY 04/17/25 Unknown History mcg (2,000 unit) capsule <Virginie Arreaga PA-C - Last Filed: 04/17/25 13:48> Allergies/adverse reactions: Allergies Allergy/AdvReac Type Severity Reaction Status Date / Time No Known Allergies Allergy Verified 04/17/25 08:24 <Virginie Arreaga PA-C - Last Filed: 04/17/25 13:48> Review of Systems 2 Review of Systems: All systems reviewed & are unremarkable except as noted in HPI. <Virginie Arreaga PA-C - Last Filed: 04/17/25 13:48> All systems reviewed & are unremarkable except as noted in HPI and below < Virginie Arreaga PA-C - Last Filed: 04/17/25 13:48> [facility] Past Medical History Medical History: Medical History Abdominal mass, left upper quadrant Dyslipidemia Vitamin D deficiency Breast cancer screening Post-menopausal On senior living drug therapy <Virginie Arreaga PA-C - Last Filed: 04/17/25 13:48> Surgical History Surgical History: Surgical History Knee joint replacement status (~2020) <Virginie Arreaga PA-C - Last Filed: 04/17/25 13:48> Social History Social History: Social History Smoking packs per day: 0.5 Smoking cigarettes per day: 10.0 Years smoked: 25 Smoking pack-years: 12.50 Smoking status: Current every day smoker Tobacco type: cigarettes Second hand tobacco smoke exposure: Yes Alcohol intake: current Alcohol use details: OCCASSIONAL - Social Substance use: current Substance use type: marijuana Lack of Transportation: No Lack of Food: Never True Current Housing: I Have Housing Concerned About Future Housing: No Difficulty Paying Gas/Electric Bills: No Difficulty Paying for Meds: No Currently Unemployed: No Education: Associate Degree Difficulty w/ Childcare or Family Care: No Living arrangements: with family Gender identity (if verbalized by the patient): Female Spiritual care concerns: No <Virginie Arreaga PA-C - Last Filed: 04/17/25 13:48> Exam 2 Narrative: GENERAL: Uncomfortable appearing, well-nourished, non-toxic, in no acute distress. HEAD: Normocephalic, atraumatic. RESPIRATORY: Airway patent, respirations nonlabored. Clear to auscultation bilaterally, no rales, rhonchi, wheezing. CARDIOVASCULAR: Regular rate and rhythm without murmurs, rubs, or gallops. Pedal pulses intact MUSCULOSKELETAL: Moves all extremities. No gross deformities. Shortening and external rotation noted of right lower extremity, tenderness to palpation along right proximal femur/inner thigh. Sensation intact throughout right lower extremity. Tenderness to palpation along proximal fibular region without notable swelling. SKIN: Warm, dry, normal color. NEURO: A&O X3. Speech clear. Cranial nerves II-XII grossly intact. No ataxic movements. PSYCHIATRIC: Appropriate mood and affect. Normal interaction. <Virginie Arreaga PA-C - Last Filed: 04/17/25 13:48> Course MERCHANDISE PROCESSOR/PA Physician Supervision This visit was performed by both a physician and an APC; I performed all aspects of the medical decision making component of this evaluation as documented. <Juan Salgado MD - Last Filed: 04/17/25 14:32> Vital Signs Vital signs: Vital Signs Temperature 36.6 C 04/17/25 10:45 Pulse Rate 69 04/17/25 10:45 Respiratory Rate 18 04/17/25 10:45 Blood Pressure 134/78 04/17/25 10:45 Pulse Oximetry 100 04/17/25 10:45 Temperature 36.6 C 04/17/25 10:45 Pulse Rate 87 04/17/25 14:03 Respiratory Rate 16 04/17/25 14:03 Blood Pressure 105/73 04/17/25 14:03 Pulse Oximetry 95 04/17/25 14:03 <Virginie Arreaga PA-C - Last Filed: 04/17/25 13:48> Vital Signs Temperature 36.6 C 04/17/25 10:45 Pulse Rate 69 04/17/25 10:45 Respiratory Rate 18 04/17/25 10:45 Blood Pressure 134/78 04/17/25 10:45 Pulse Oximetry 100 04/17/25 10:45 Temperature 36.6 C 04/17/25 10:45 Pulse Rate 87 04/17/25 14:03 Respiratory Rate 16 04/17/25 14:03 Blood Pressure 105/73 04/17/25 14:03 Pulse Oximetry 95 04/17/25 14:03 <Juan Salgado MD - Last Filed: 04/17/25 14:32> MDM MDM Narrative Medical decision making narrative: Patient presented to ED with right hip pain status post fall 2 days ago. Recent right proximal fibular fracture. Patient neurovascularly intact. There is shortening and external rotation of right lower extremity on exam. TTP over R groin. X-ray of right hip/pelvis: Right femoral neck fracture slightly impacted with varus angulation. Patient was in Dr. Amanda's office today to be seen for the fibular fx. Will discuss with him. Discussed with Dr. Amanda, advised to discuss w/ on-call orthopedics. Discussed case with Dr. Gallagher, orthopedics, will consult and see patient. Requested CT of right hip as well as x-ray/CT of right ankle given additional history of proximal fibular fracture. Remainder of imaging without additional fractures or traumatic findings. Basic laboratory studies grossly unremarkable. Potassium 3.2. Replaced orally. Patient will be admitted for further evaluation. Likely surgery tomorrow. NPO at midnight. Dr. Gallagher in the ED to see patient. Discussed case with Angelica Lake NP hospitalist, accepted patient for admission. Patient/family in agreement with plan. <Virginie Arreaga PA-C - Last Filed: 04/17/25 13:48> Differential Diagnosis Differential Diagnosis: Hip fracture, hip contusion, hip strain, fibular fx w/ compensation injury, groin strain, pelvic fx <Virginie Arreaga PA-C - Last Filed: 04/17/25 13:48> Medical Records I have reviewed the following patient records and this information was taken into consideration when formulating the assessment and plan.: previous labs, previous ER visits, previous hospitalizations and previous clinic visits <DEBBIE RamosC - Last Filed: 04/17/25 13:48> Lab Data MDM Lab Attestation statement: I personally reviewed the patient's lab results. <Virginie Arreaga PA-C - Last Filed: 04/17/25 13:48> Result diagrams: 04/17/25 10:52 04/17/25 10:52 <Virginie Arreaga PA-C - Last Filed: 04/17/25 13:48> Labs: Lab Results 04/17/25 04/17/25 Range/Units 10:51 10:52 WBC 7.3 (4.5-10.0) K/mm3 RBC 4.00 L (4.2-5.4) M/mm3 Hgb 12.1 (12.0-15.0) g/dL Hct 37.9 (37.0-47.0) % MCV 94.8 (80-100) fl MCH 30.3 (26-34) pg MCHC 31.9 L (32-36) g/dl RDW 14.1 (11.5-14.5) % Plt Count 195 (150-375) k/mm3 MPV 9.7 (7.4-10.4) fl Immature Gran % (Auto) 0.3 (0-0.5) % Neut % (Auto) 76.8 H (45.5-73.1) % Lymph % (Auto) 13.6 L (18.3-44.2) % Towner % (Auto) 5.5 (2.6-8.5) % Eos % (Auto) 3.7 (0-4.4) % Baso % (Auto) 0.1 L (0.2-1.2) % Lymph # (Auto) 1.00 (0.9-3.2) K/mm3 Towner # (Auto) 0.4 (0.1-0.6) K/mm3 Eos # (Auto) 0.3 (0-0.3) K/mm3 Baso # (Auto) 0.0 (0.0-0.1) K/mm3 Abs Immat Gran (auto) 0.02 (0.00-0.031) K/mm3 Absolute Neuts (auto) 5.6 (1.3-6.7) K/mm3 Absolute Nucleated RBC 0.000 (0.0-0.012) K/mm3 Nucleated RBC % 0.0 (0.0-0.2) % PT 13.7 (11.1-14.7) Seconds INR 1.1 APTT 33.0 (22.3-36.8) Seconds Sodium 140 (137-145) mmol/L Potassium 3.2 L (3.4-5.0) mmol/L Chloride 108 H (98-107) mmol/L Carbon Dioxide 29 (22-30) mmol/L Anion Gap 3 L (4-12) mmol/L BUN 19 H (7-17) mg/dL Creatinine 0.97 (0.7-1.0) mg/dL Estim Creat Clear Calc 55 ml/min Estimated GFR 58 L (59 - ) Glucose 105 (65-110) mg/dL Calcium 8.9 (8.4-10.2) mg/dL Total Bilirubin 0.8 (0.2-1.3) mg/dL AST 35 (14-36) U/L ALT 21 (6-35) U/L Alkaline Phosphatase 84 (38-126) U/L Total Protein 7.5 (6.3-8.2) g/dL Albumin 3.7 (3.5-5.1) g/dL Blood Type O Positive Antibody Screen Negative <Virginie Arreaga PA-C - Last Filed: 04/17/25 13:48> Lab Results 04/17/25 04/17/25 Range/Units 10:51 10:52 WBC 7.3 (4.5-10.0) K/mm3 RBC 4.00 L (4.2-5.4) M/mm3 Hgb 12.1 (12.0-15.0) g/dL Hct 37.9 (37.0-47.0) % MCV 94.8 (80-100) fl MCH 30.3 (26-34) pg MCHC 31.9 L (32-36) g/dl RDW 14.1 (11.5-14.5) % Plt Count 195 (150-375) k/mm3 MPV 9.7 (7.4-10.4) fl Immature Gran % (Auto) 0.3 (0-0.5) % Neut % (Auto) 76.8 H (45.5-73.1) % Lymph % (Auto) 13.6 L (18.3-44.2) % Towner % (Auto) 5.5 (2.6-8.5) % Eos % (Auto) 3.7 (0-4.4) % Baso % (Auto) 0.1 L (0.2-1.2) % Lymph # (Auto) 1.00 (0.9-3.2) K/mm3 Towner # (Auto) 0.4 (0.1-0.6) K/mm3 Eos # (Auto) 0.3 (0-0.3) K/mm3 Baso # (Auto) 0.0 (0.0-0.1) K/mm3 Abs Immat Gran (auto) 0.02 (0.00-0.031) K/mm3 Absolute Neuts (auto) 5.6 (1.3-6.7) K/mm3 Absolute Nucleated RBC 0.000 (0.0-0.012) K/mm3 Nucleated RBC % 0.0 (0.0-0.2) % PT 13.7 (11.1-14.7) Seconds INR 1.1 APTT 33.0 (22.3-36.8) Seconds Sodium 140 (137-145) mmol/L Potassium 3.2 L (3.4-5.0) mmol/L Chloride 108 H (98-107) mmol/L Carbon Dioxide 29 (22-30) mmol/L Anion Gap 3 L (4-12) mmol/L BUN 19 H (7-17) mg/dL Creatinine 0.97 (0.7-1.0) mg/dL Estim Creat Clear Calc 55 ml/min Estimated GFR 58 L (59 - ) Glucose 105 (65-110) mg/dL Calcium 8.9 (8.4-10.2) mg/dL Total Bilirubin 0.8 (0.2-1.3) mg/dL AST 35 (14-36) U/L ALT 21 (6-35) U/L Alkaline Phosphatase 84 (38-126) U/L Total Protein 7.5 (6.3-8.2) g/dL Albumin 3.7 (3.5-5.1) g/dL Blood Type O Positive Antibody Screen Negative <Juan Salgado MD - Last Filed: 04/17/25 14:32> Imaging Data Attestation: I personally reviewed and interpreted this imaging study as follows: < Virginie Arreaga PA-C - Last Filed: 04/17/25 13:48> Radiologist's impression: ITS Impressions Chest X-Ray 04/17/25 11:19 IMPRESSION: 1. Possible vascular ectasia versus lymphadenopathy in the left hilar region. This appears more pronounced compared to the July 23 exam. 2. Consider correlation with chest CT for complete evaluation. Hip/Pelvis X-Ray 04/17/25 11:22 IMPRESSION: 1. Right femoral neck fracture slightly impacted with varus angulation. Head CT 04/17/25 12:16 IMPRESSION: 1. No gross intracranial mass effect or hemorrhage; probable old infarction versus small cystic lesion in the mesial temporal region on the left side. 2. Extensive opacification of the maxillary air cells with somewhat irregular appearance of the medial wall of the right maxillary sinus. Query if patient has experienced facial trauma. If there is concern for facial injury, facial bone CT recommended. Cervical Spine CT 04/17/25 12:19 IMPRESSION: No fracture lucency C1-C7. Hip CT 04/17/25 12:22 IMPRESSION: Mildly comminuted right femoral neck fracture with foreshortening and varus angulation. No other fracture or pathologic lesion seen. No large hematoma. Ankle CT 04/17/25 12:23 IMPRESSION: Moderately extensive soft tissue swelling and/or injury with no fracture lucency in the right ankle. Ankle X-Ray 04/17/25 12:39 IMPRESSION: 1. No displaced fracture lucency. <Virginie Arreaga PA-C - Last Filed: 04/17/25 13:48> ITS Impressions Chest X-Ray 04/17/25 11:19 IMPRESSION: 1. Possible vascular ectasia versus lymphadenopathy in the left hilar region. This appears more pronounced compared to the July 23 exam. 2. Consider correlation with chest CT for complete evaluation. Hip/Pelvis X-Ray 04/17/25 11:22 IMPRESSION: 1. Right femoral neck fracture slightly impacted with varus angulation. Head CT 04/17/25 12:16 IMPRESSION: 1. No gross intracranial mass effect or hemorrhage; probable old infarction versus small cystic lesion in the mesial temporal region on the left side. 2. Extensive opacification of the maxillary air cells with somewhat irregular appearance of the medial wall of the right maxillary sinus. Query if patient has experienced facial trauma. If there is concern for facial injury, facial bone CT recommended. Cervical Spine CT 04/17/25 12:19 IMPRESSION: No fracture lucency C1-C7. Hip CT 04/17/25 12:22 IMPRESSION: Mildly comminuted right femoral neck fracture with foreshortening and varus angulation. No other fracture or pathologic lesion seen. No large hematoma. Ankle CT 04/17/25 12:23 IMPRESSION: Moderately extensive soft tissue swelling and/or injury with no fracture lucency in the right ankle. Ankle X-Ray 04/17/25 12:39 IMPRESSION: 1. No displaced fracture lucency. <Juan Salgado MD - Last Filed: 04/17/25 14:32> ECG Data EKG #1: Attestation: I personally reviewed and interpreted this ECG as follows: <Virginie Arreaga PA-C - Last Filed: 04/17/25 13:48> ECG completion date: 04/17/25 <Virginie Arreaga PA-C - Last Filed: 04/17/25 13:48> ECG completion time: 11:47 <Virginie Arreaga PA-C - Last Filed: 04/17/25 13:48> normal rate (69), sinus rhythm (With sinus arrhythmia) and non- specific ST changes <Virginie Arreaga PA-C - Last Filed: 04/17/25 13:48> Discharge Plan Discharge Clinical Impression: Fall from ground level Closed fracture of neck of right femur Qualifiers: Encounter type: initial encounter Qualified Code(s): S72.001A - Fracture of unspecified part of neck of right femur, initial encounter for closed fracture Fracture of proximal end of right fibula Qualifiers: Encounter type: subsequent encounter Fracture type: closed Fracture morphology: unspecified fracture morphology Fracture healing: with routine healing Qualified Code(s): S82.831D - Other fracture of upper and lower end of right fibula, subsequent encounter for closed fracture with routine healing <Virginie Arreaga PA-C - Last Filed: 04/17/25 13:48> Patient Disposition: Still a Patient <Virginie Arreaga PA-C - Last Filed: 04/17/25 13:48> Condition: Stable <Virginie Arreaga PA-C - Last Filed: 04/17/25 13:48>
[2025-04-17] MEDS: POTASSIUM CHLORIDE 20 MEQ ER TABLET 40 MEQ PO (12:40)
--- NOTE | 2025-04-17 13:06 | PC.NURSE ---
Patient able to eat and drink until midnight per Dr Gallagher -at bedside Derick crackers and white soda given
[2025-04-17] MEDS: ONDANSETRON INJ 4 MG/2 ML VIAL IV PUSH (13:24)
[2025-04-17] MEDS: HYDROmorphone HCL INJ (*CRX) 1 MG/ML SYR IV PUSH (13:24)
--- NOTE | 2025-04-17 13:36 | PM.IMHP2 ---
H&P: HPI History of Present Illness Date/Time: 04/17/25 13:36 Chief Complaint: Fall Narrative: 64 y/o F with PMH of HLD, vitamin D deficiency, and HTN presents here with fall/abnormal imaging. The patient presents here via EMS from [place] [facility] office for further evaluation of abnormal imaging. She had follow-up with Dr. Amanda for a proximal right fibular fracture that she sustained on Sunday, 04/12 due to a ground level fall. Initially thought pain was intense due to the injury being fresh, however the pain did not improve after she got some rest/slept. She was then evaluated at [place] [facility] on 04/13. At that time she reported that she had a fall due to missing a step and fell down 2 steps. Post fall she had pain to her right leg and was unable to bear weight. At that time she was found to have a proximal fibular fracture. She was placed in a knee immobilizer and had strict instructions to follow-up with the orthopedist. Prior to her follow-up appointment today she had an additional fall on Sunday. She reports her was trying to help her when they lost balance and fell together. At that time she fell onto her right hip. She has been unable to bear weight on her right lower extremity/ambulate since fall. She denied loss of consciousness. But did hit the back of her head. Today her repeat imaging at her orthopedist's office showed a possible right hip fracture. Initial VS at presentation: 97.9? F, HR 69, R 18, 134/78, and 100% on RA. ED workup showed: No leukocytosis, no anemia, normal coags, potassium 3.2, creatinine 0.97 and GFR 58. CXR showed possible vascular ectasia versus lymphedema in left hilar region, more pronounced compared to the July 23 exam. Hip/pelvic XR showed a right femoral neck fracture slightly impacted with varus angulation. Head CT showed no gross intracranial mass effect or hemorrhage, probable old infarction versus small cystic lesion the mesial temporal region on the left side, extensive opacification the maxillary air cells with somewhat irregular appearance of the medial wall of the right maxillary sinus. C-spine CT showed no fracture or lucency through C1 through C7. Hip CT showed a mildly comminuted right femoral neck fracture with foreshortening and varus angulation. Ankle CT showed moderately extensive soft tissue swelling and/or injury with no fracture lucency in the right ankle. Ankle XR showed no displaced fracture lucency. Review of Systems Review of Systems: All systems reviewed & are unremarkable except as noted in HPI and below PMFSH Past Medical History Medical History Abdominal mass, left upper quadrant Dyslipidemia Vitamin D deficiency Breast cancer screening Post-menopausal On exterminator helper termite drug therapy Surgical History Surgical History Knee joint replacement status (~2020) Social History Social History Smoking packs per day: 0.5 Smoking cigarettes per day: 10.0 Years smoked: 25 Smoking pack-years: 12.50 Smoking status: Current every day smoker Tobacco type: cigarettes Second hand tobacco smoke exposure: Yes Alcohol intake: current Alcohol use details: OCCASSIONAL - Social Substance use: current Substance use type: marijuana Lack of Transportation: No Lack of Food: Never True Current Housing: I Have Housing Concerned About Future Housing: No Difficulty Paying Gas/Electric Bills: No Difficulty Paying for Meds: No Currently Unemployed: No Education: Associate Degree Difficulty w/ Childcare or Family Care: No Living arrangements: with family Gender identity (if verbalized by the patient): Female Spiritual care concerns: No Meds Home Medications and Allergies Home Medications ?Medication ?Instructions ?Recorded ?Confirmed ?Type cetirizine 10 mg tablet (Zyrtec) 10 mg PO DAILY #30 tabs 05/28/19 04/17/25 Rx aspirin 81 mg tablet,delayed 81 mg PO DAILY 12/03/20 04/17/25 History release (Adult Aspirin Regimen) paroxetine HCl 10 mg tablet 10 mg PO DAILY #90 tabs 12/07/21 04/17/25 Rx turmeric 400 mg capsule mg PO 10/06/22 04/17/25 History naproxen 375 mg tablet 375 mg PO BID #14 tabs 02/19/23 04/17/25 Rx B6 0.85 mg-folic 200 tablet PO 10/25/23 04/17/25 History [id number]-[id number] oral chewable tablet (Neuriva Plus) potassium chloride 20 mEq See Rx Instructions .Route 09/09/24 04/17/25 Rx tablet,extended release .COMPLEX #270 tabs albuterol sulfate 90 mcg/actuation 1 inh inhalation Q4H PRN shortness 10/15/24 04/17/25 Rx aerosol inhaler (Ventolin HFA) of breath or wheezing #8.5 grams triamterene 37.5 1 tablet PO QAM #90 tabs 11/17/24 04/17/25 Rx mg-hydrochlorothiazide 25 mg tablet pravastatin 40 mg tablet 40 mg PO DAILY #90 tabs 01/16/25 04/17/25 Rx cholecalciferol (vitamin D3) 1,250 See Rx Instructions .Route 02/02/25 04/17/25 Rx mcg (50,000 unit) capsule .COMPLEX #10 caps cholecalciferol (vitamin D3) 50 50 mcg PO DAILY 02/02/25 04/17/25 History mcg (2,000 unit) capsule methocarbamol 750 mg tablet 750 mg PO TID PRN muscle spasm #30 04/13/25 04/17/25 Rx tabs oxycodone 5 mg tablet 5 mg PO Q8H PRN pain #10 tabs 04/13/25 04/17/25 Rx Allergies Allergy/AdvReac Type Severity Reaction Status Date / Time No Known Allergies Allergy Verified 04/17/25 08:24 Vital Signs Vital Signs - 24 hr 04/17/25 10:45 04/17/25 11:30 04/17/25 12:15 Temperature 97.9 F Pulse Rate 69 71 67 Respiratory Rate 18 18 16 Blood Pressure 134/78 148/87 H 133/73 Pulse Oximetry 100 96 100 04/17/25 13:00 Temperature Pulse Rate 75 Respiratory Rate 16 Blood Pressure 124/82 Pulse Oximetry 95 Exam Const: General: comfortable and no acute distress Other: , female, nontoxic appearance HENMT: Face/Nose/Sinus: Normal nares present Mouth: Yes moist mucous membranes Eyes: General: appearance normal, both eyes and all related structures Sclera: sclerae normal Pupils: Equal, round and reactive pupils present EOM: EOMs intact bilaterally Resp: Effort & Inspection: normal respiratory effort Auscultation: clear to auscultation bilaterally Cardio: Rate: regular rate Rhythm: regular rhythm Other: S1-S2 present without murmur, rub, ectopy GI: Other: Abdomen soft, nondistended, nontender. Normoactive bowel sounds in all quadrants. Skin: General skin exam: normal color and no rashes or lesions noted Wounds: no wounds Neuro: Speech: normal speech Sensory Exam: normal sensation Other: A&O x4. Decreased range of motion and strength in the right lower extremities secondary to pain. Extrem: Other: DP pulses 2+ bilaterally, no peripheral edema Psych: Mental Status: mental status grossly normal Affect: normal affect Other: Good insight and judgment, pleasant Results Labs Labs: Short CBC 04/17/25 Range/Units 10:52 WBC 7.3 (4.5-10.0) K/mm3 Hgb 12.1 (12.0-15.0) g/dL Hct 37.9 (37.0-47.0) % Plt Count 195 (150-375) k/mm3 BMP 04/17/25 10:52 Sodium 140 Potassium 3.2 L Chloride 108 H Carbon Dioxide 29 BUN 19 H Creatinine 0.97 Glucose 105 Calcium 8.9 Liver Function 04/17/25 Range/Units 10:52 Total Bilirubin 0.8 (0.2-1.3) mg/dL AST 35 (14-36) U/L ALT 21 (6-35) U/L Alkaline Phosphatase 84 (38-126) U/L Albumin 3.7 (3.5-5.1) g/dL Quality VTE Prophylaxis VTE prophylaxis: mechanical ordered Assessment and Plan Assessment and plan (1) Closed fracture of neck of right femur: Qualifiers: Encounter type: initial encounter Qualified Code(s): S72.001A - Fracture of unspecified part of neck of right femur, initial encounter for closed fracture Code(s): S72.001A - Fracture of unspecified part of neck of right femur, initial encounter for closed fracture Status: Acute Assessment and Plan: Patient sustained a ground level fall on Sunday. Her was trying to assist her when they lost their balance causing them to both fall. The patient fell onto her right hip, hit the back of her head, but did not lose consciousness. She has been unable to bear weight on her right lower extremity or ambulate since the fall. Had an additional fall on Sunday where she sustained a proximal right fibular fracture, see below. Admitted for surgical management of her right femoral neck fracture. CT of the hip showed a mildly comminuted right femoral neck fracture with foreshortening and varus angulation. - orthopedics consulted - NPO at midnight, anticipate surgery on 04/18 - analgesics p.r.n.: Tylenol, [place], morphine - last bowel movement 2 days prior to arrival on 04/15, start bowel regimen including MiraLax b.i.d. and docusate b.i.d. +IV fluids at 100 mL/hr x1L - anticipate patient will need PT/OT postop and possibility of acute rehab services given she has an additional fracture in her right lower extremity (2) Fracture of proximal end of right fibula: Qualifiers: Encounter type: subsequent encounter Fracture healing: with routine healing Fracture morphology: unspecified fracture morphology Fracture type: closed Qualified Code(s): S82.831D - Other fracture of upper and lower end of right fibula, subsequent encounter for closed fracture with routine healing Code(s): S82.831A - Other fracture of upper and lower end of right fibula, initial encounter for closed fracture Status: Acute Assessment and Plan: Sustained a fall on Thursday 04/12, evaluated on Friday 04/13. XR showed a Hairline fracture of proximal shaft of the right fibula. Knee immbolizer was placed and she was discharged home with follow-up with the orthopedic team. She had follow-up today with Dr. Amanda. However given her new injury she was transferred to the emergency department for further evaluation. - continue knee immobilizer once no longer on bed rest (3) Dyslipidemia: Code(s): E78.5 - Hyperlipidemia, unspecified Status: Acute Assessment and Plan: - continue home medication: Pravastatin Plan Hold paroxetine for impending surgery, on this medication for hot flashes. Diet: Regular, NPO midnight GI Prophylaxis: N/a DVT Prophylaxis: SCDs IV fluids: LR 100 mL/hour x1 L Lines/Tubes: pIV Code Status: Full code Prior Studies I have reviewed the following patient records and this information was taken into consideration when formulating the assessment and plan.: previous labs, previous ER visits, previous hospitalizations and previous clinic visits Time Spent with Patient Time with patient: less than 45 minutes Hospitalist MIPS Advance Care Plan I have confirmed that the patient's Advanced Care Plan is present, code status is documented, or surrogate decision maker is listed in patient medical record.: Yes Medication Reconciliation I have utilized all available resources to obtain, update and review the patients current medications (includes all prescriptions, OTC, herbals, cannabis, and nutritional supplements).: Yes
--- NOTE | 2025-04-17 15:25 | WPCEDHO ---
ED Hand Off Checklist All vitals saved:y IV Site documented:y All med administrations documented:y Triage Note Triage Note pt to ed by ems from orthopedic 04/17/25 10:36 office where she was following up on a fibula fx. Pt states she fell evening and has had right hip pain. H ad XR done in ortho office and was brought here for follow up. Pt A&Ox4. Allergies No Known Allergies Allergy (Verified 04/17/25 08:24) Active Medications including assessments/comments Ondansetron HCl (Ondansetron Inj 4 Mg/2 Ml Vial) 4 mg IV PUSH Q4H PRN PRN Reason: Nausea Last Admin: 04/17/25 13:24 Dose: 4 mg Documented By: BRENDA Administered/Completed Medications Discontinued Medications Hydromorphone HCl (Hydromorphone Hcl Inj (*Crx) 1 Mg/Ml Syr) 0.5 mg IV PUSH ONCE STA Stop: 04/17/25 10:50 Last Admin: 04/17/25 10:56 Dose: 0.5 mg Documented By: ALVA Hydromorphone HCl (Hydromorphone Hcl Inj (*Crx) 1 Mg/Ml Syr) 0.5 mg IV PUSH ONCE STA Stop: 04/17/25 11:17 Last Admin: 04/17/25 11:31 Dose: 0.5 mg Documented By: BRENDA Hydromorphone HCl (Hydromorphone Hcl Inj (*Crx) 1 Mg/Ml Syr) 1 mg IV PUSH ONCE STA Stop: 04/17/25 13:18 Last Admin: 04/17/25 13:24 Dose: 1 mg Documented By: BRENDA Potassium Chloride (Potassium Chloride 20 Meq Er Tablet) 40 meq PO ONCE STA Stop: 04/17/25 11:50 Last Admin: 04/17/25 12:40 Dose: 40 meq Documented By: BRENDA Notes 04/17/25 13:06 Nurse Note by Nicole Mcclelland Patient able to eat and drink until midnight per Dr Gallagher -at bedside Derick crackers and white soda given Initialized on 04/17/25 13:06 - END OF NOTE Interventions/Assessments General Assessment Start: 04/17/25 10:32 Freq: Status: Active Protocol: Document 04/17/25 11:20 TLB (Rec: 04/17/25 12:05 TLB [id number]) GA Musculoskeletal Assessmemt Right Upper Leg(s) Musculoskeletal Joint Pain With Movement,Muscle Pain With Movement Symptoms Range of Motion Limited Range of Motion IV / Saline Lock, Insert Start: 04/17/25 10:32 Freq: Status: Active Protocol: Document 04/17/25 11:15 TLB (Rec: 04/17/25 13:17 TLB [id number]) IV Assessment Peripheral Access Left Antecubital IV Catheter Access Initiated Before Arrival Catheter Gauge 20 IV Care and WNL,Access Locked Maintenance Last Vital Signs Temperature 97.9 F 04/17/25 10:45 Pulse Rate 85 04/17/25 15:20 Respiratory Rate 16 04/17/25 15:20 Pulse Oximetry 94 04/17/25 15:20 Blood Pressure 108/67 04/17/25 15:20 Blood Pressure Mean 80 04/17/25 15:20 Blood Pressure Position Supine 04/17/25 15:20 Weight 82.5 kg 04/17/25 10:36 Last Result - Abnormals Only RBC 4.00 M/mm3 (4.2-5.4) L 04/17/25 10:52 MCHC 31.9 g/dl (32-36) L 04/17/25 10:52 Neut % (Auto) 76.8 % (45.5-73.1) H 04/17/25 10:52 Lymph % (Auto) 13.6 % (18.3-44.2) L 04/17/25 10:52 Baso % (Auto) 0.1 % (0.2-1.2) L 04/17/25 10:52 Potassium 3.2 mmol/L (3.4-5.0) L 04/17/25 10:52 Chloride 108 mmol/L (98-107) H 04/17/25 10:52 Anion Gap 3 mmol/L (4-12) L 04/17/25 10:52 BUN 19 mg/dL (7-17) H 04/17/25 10:52 Estimated GFR 58 (59-) L 04/17/25 10:52 Most Recent Suicide Severity Rating Suicide Severity Rating NO RISK INDICATED 04/17/25 10:36
[2025-04-17] MEDS: LACTATED RINGERS 1,000 ML 100 ML IV CONT (15:37)
--- OUTSIDE RECORDS SUMMARY | 2025-04-17 15:46 | XMS_ITS | Clinical Summary ---
Author Organization [facility] Address [address] [place] [address] Care Team Providers Care Market Research Consultant Name Role Phone Darryl Navarro DO Primary Care Provider [phone] Ash England PA Unavailable [phone] Allergies No known active allergies Medications hydroCHLOROthia [...] (07/15/2018): Added automatically from request for surgery [id number] Resolved Problems Problem Noted Date Diagnosed Date Resolved Date Primary osteoarthritis of left knee 05/26/2020 12/22/2020 Immunizations Immunization Administration Dates Next Due Lab42 SARS-CoV-2 Monovalent Vaccination (12+ Yrs) PURPLE 06/25/2020,06/04/2020 [...] on file 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 Gender Identity Not on file Sexual Orientation [...] on file Medical Devices Implanted Type Area Wilderness Guide Device Identifier Shelf Expiration Date Model / Serial / Lot [employer] 6195-1-001 Cement Bone Simplex Gentamicin High Viscosity 40gm - [id number] Implanted:Qty: 1 on 12/21/2020 by Jf Solis MD at [facility] Left: Knee [employer] 09/03/2021 6195-1-001 / / [id number] [employer] [id number] Attune Cruciate Retain Cementless Knee Left 6 Narrow Component - [id number] Implanted:Qty: 1 on 12/21/2020 by Jf Solis MD at [facility] Left: Knee [employer] 04/05/2031 [id number] / / [id number] [employer] [id number] Attune S+ Cement Fix Bearing Knee 6 Baseplate Tibial - [id number] Implanted:Qty: 1 on 12/21/2020 by Jf Solis MD at [facility] Left: Knee [employer] 2029 [id number] / / [id number] [employer] [id number] Attune 5mm Cruciate Retaining Fix Bearing Knee 6 Insert Tibial - [id number] Implanted:Qty: 1 on 12/21/2020 by Jf Solis MD at [facility] Left: Knee [employer] 09/03/2025 [id number] / / [id number] Insurance [employer] [facility] HMO/POS ANTHEM ACCESS BLUE ACCESS OOS BLUE ACCESS OOS Advance Directives For more information, please contact: [phone] * Full Code (Latest Code Status on File) Date Activated Date Inactivated Comments 12/21/2020 4:24 PM 12/22/2020 6:53 PM Care Teams Market Research Consultant Relationship Specialty Start Date End Date Darryl Navarro DO PCP - General Internal Medicine 05/14/20 Ash England PA Physician [facility] Orthopedic Surgery 12/21/20
--- NOTE | 2025-04-17 17:10 | ADMGEN ---
This patient, Tricia Roger, was admitted to 3 [facility] Surg Room 326-01. Patient/family oriented to hospital policies and general routines including ID bracelet, bed and alarms, visiting hours, pain management, procedures, bathroom and other care routines, personal items, smoking policy, room service/diet, and visiting hours. Information on how to activate the Rapid Response Team has been discussed. Patient/Family are encouraged to report perceived risks to care and to ask questions if they do not understand what they are told or what they should do. received report from frida.
[2025-04-17] MEDS: DOCUSATE SODIUM 100 MG CAPSULE PO (20:55)
[2025-04-17] MEDS: HYDROcodone/acetaminophen (*CRX) 5-325 MG TABLET 1 TAB PO (21:57)
[2025-04-18] VITALS (11 sets, daily range): BP systolic 90–131; BP diastolic 60–97; PULSE 77–118; RESP 12–18; TEMP 36.3–37.4; O2SAT 92–100
[2025-04-18] MEDS: HYDROmorphone HCL INJ (*CRX) 1 MG/ML SYR 0.5 MG IV PUSH ×2 (02:12→08:30)
[2025-04-18] MEDS: HYDROcodone/acetaminophen (*CRX) 5-325 MG TABLET 1 TAB PO (05:28)
--- NOTE | 2025-04-18 07:52 | PM.IMPN2 ---
Assessment and Plan Assessment and Plan (1) Closed fracture of neck of right femur: Qualifiers: Encounter type: initial encounter Qualified Code(s): S72.001A - Fracture of unspecified part of neck of right femur, initial encounter for closed fracture Code(s): S72.001A - Fracture of unspecified part of neck of right femur, initial encounter for closed fracture Status: Acute Assessment and Plan: Patient sustained a ground level fall on Sunday. Her was trying to assist her when they lost their balance causing them to both fall. The patient fell onto her right hip, hit the back of her head, but did not lose consciousness. She has been unable to bear weight on her right lower extremity or ambulate since the fall. Had an additional fall on Sunday where she sustained a proximal right fibular fracture, see below. Admitted for surgical management of her right femoral neck fracture. CT of the hip showed a mildly comminuted right femoral neck fracture with foreshortening and varus angulation. - orthopedics consulted - NPO at midnight, surgery today - analgesics p.r.n.: Tylenol, [place], Dilaudid - last bowel movement 2 days prior to arrival on 04/15, start bowel regimen including MiraLax b.i.d. and docusate b.i.d. +IV fluids at 100 mL/hr x1L - anticipate patient will need PT/OT postop and possibility of acute rehab services given she has an additional fracture in her right lower extremity (2) Fracture of proximal end of right fibula: Qualifiers: Encounter type: subsequent encounter Fracture healing: with routine healing Fracture morphology: unspecified fracture morphology Fracture type: closed Qualified Code(s): S82.831D - Other fracture of upper and lower end of right fibula, subsequent encounter for closed fracture with routine healing Code(s): S82.831A - Other fracture of upper and lower end of right fibula, initial encounter for closed fracture Status: Acute Assessment and Plan: Sustained a fall on Thursday 04/12, evaluated on Friday 04/13. XR showed a Hairline fracture of proximal shaft of the right fibula. Knee immobilizer was placed and she was discharged home with follow-up with the orthopedic team. She had follow-up today with Dr. Amanda. However given her new injury she was transferred to the emergency department for further evaluation. - continue knee immobilizer once no longer on bed rest Plan Hold paroxetine for impending surgery, on this medication for hot flashes. Diet: NPO GI Prophylaxis: N/a DVT Prophylaxis: SCDs IV fluids: LR 100 mL/hour x1 L Lines/Tubes: pIV Code Status: Full code Medical Record Review I have reviewed the following patient records and this information was taken into consideration when formulating the assessment and plan.: previous labs and previous ER visits Subjective Date/time seen: 04/18/25 0815 Interval history: Pt lying uncomfortably in bed with at the bedside. Continues to c/o RLE pain, I removed her sock and that caused her pain. Denies N/V/D, SOB,CP, or any other sx. RN to give IV breakthrough Dilaudid. Surgery today around 0930. Review of Systems Review of Systems: All systems reviewed & are unremarkable except as noted in HPI and below Exam Const: General: comfortable and no acute distress Other: , female, nontoxic appearance HENMT: Face/Nose/Sinus: Normal nares present Mouth: Yes moist mucous membranes Eyes: General: appearance normal, both eyes and all related structures Sclera: sclerae normal Pupils: Equal, round and reactive pupils present EOM: EOMs intact bilaterally Resp: Effort & Inspection: normal respiratory effort Auscultation: clear to auscultation bilaterally Cardio: Rate: regular rate Rhythm: regular rhythm Other: S1-S2 present without murmur, rub, ectopy GI: Other: Abdomen soft, nondistended, nontender. Normoactive bowel sounds in all quadrants. Skin: General skin exam: normal color and no rashes or lesions noted Wounds: no wounds Neuro: Cranial nerves: Yes Equal, round and reactive pupils present Speech: normal speech Sensory Exam: normal sensation Other: A&O x4. Decreased range of motion and strength in the right lower extremities secondary to pain. Extrem: Other: DP pulses 2+ bilaterally, no peripheral edema RLE externally rotated Psych: Mental Status: mental status grossly normal Affect: normal affect Other: Good insight and judgment, pleasant Objective Data Vital Signs Vital Signs: Vital Signs - 24 hr 04/17/25 10:45 04/17/25 11:30 04/17/25 12:15 Temperature 97.9 F Pulse Rate 69 71 67 Respiratory Rate 18 18 16 Blood Pressure 134/78 148/87 H 133/73 Pulse Oximetry 100 96 100 Oxygen Delivery 04/17/25 13:00 04/17/25 14:03 04/17/25 15:20 Temperature Pulse Rate 75 87 85 Respiratory Rate 16 16 16 Blood Pressure 124/82 105/73 108/67 Pulse Oximetry 95 95 94 Oxygen Delivery 04/17/25 16:54 04/17/25 17:30 04/17/25 20:00 Temperature 97.3 F L 97.6 F Pulse Rate 79 79 Respiratory Rate 18 Blood Pressure 103/68 109/60 Pulse Oximetry 100 Oxygen Delivery Room Air 04/17/25 22:00 04/18/25 06:00 Temperature 98.8 F 97.6 F Pulse Rate 85 77 Respiratory Rate 18 Blood Pressure 109/65 101/60 Pulse Oximetry 92 Oxygen Delivery Intake/Output Intake/Output: Intake & Output 04/15/25 04/16/25 04/17/25 04/18/25 23:59 23:59 23:59 23:59 Intake Total 240 Balance 240 Meds/Results Medications: Active Medications Generic Name Dose Route Start Last Admin Trade Name Freq PRN Reason Stop Dose Admin Acetaminophen 650 mg 04/17/25 14:19 Acetaminophen 325 Mg Tablet PO Q4H PRN Mild Pain (1-3) or Fever Hydrocodone Bitart/Acetaminophen 1 tab 04/17/25 14:19 04/18/25 05:28 Hydrocodone/Acetaminophen (*Crx) 5-325 Mg Tablet PO 1 tab Q4H PRN Administration Moderate Pain (4-6) Docusate Sodium 100 mg 04/17/25 21:00 04/17/25 20:55 Docusate Sodium 100 Mg Capsule PO 100 mg Q12HR SATYA Administration Hydromorphone HCl 0.5 mg 04/17/25 12:55 04/18/25 02:12 Hydromorphone Hcl Inj (*Crx) 1 Mg/Ml Syr IV PUSH 0.5 mg Q4H PRN Administration Pain Rated 7-10 Ondansetron HCl 4 mg 04/17/25 12:55 04/17/25 13:24 Ondansetron Inj 4 Mg/2 Ml Vial IV PUSH 4 mg Q4H PRN Administration Nausea Radiology Results: ITS Impressions Chest X-Ray 04/17/25 11:19 IMPRESSION: 1. Possible vascular ectasia versus lymphadenopathy in the left hilar region. This appears more pronounced compared to the July 23 exam. 2. Consider correlation with chest CT for complete evaluation. Hip/Pelvis X-Ray 04/17/25 11:22 IMPRESSION: 1. Right femoral neck fracture slightly impacted with varus angulation. Head CT 04/17/25 12:16 IMPRESSION: 1. No gross intracranial mass effect or hemorrhage; probable old infarction versus small cystic lesion in the mesial temporal region on the left side. 2. Extensive opacification of the maxillary air cells with somewhat irregular appearance of the medial wall of the right maxillary sinus. Query if patient has experienced facial trauma. If there is concern for facial injury, facial bone CT recommended. Cervical Spine CT 04/17/25 12:19 IMPRESSION: No fracture lucency C1-C7. Hip CT 04/17/25 12:22 IMPRESSION: Mildly comminuted right femoral neck fracture with foreshortening and varus angulation. No other fracture or pathologic lesion seen. No large hematoma. Ankle CT 04/17/25 12:23 IMPRESSION: Moderately extensive soft tissue swelling and/or injury with no fracture lucency in the right ankle. Ankle X-Ray 04/17/25 12:39 IMPRESSION: 1. No displaced fracture lucency. Labs Labs: Laboratory Results - last 24 hr 04/17/25 04/17/25 10:51 10:52 WBC 7.3 RBC 4.00 L Hgb 12.1 Hct 37.9 MCV 94.8 MCH 30.3 MCHC 31.9 L RDW 14.1 Plt Count 195 MPV 9.7 Immature Gran % (Auto) 0.3 Neut % (Auto) 76.8 H Lymph % (Auto) 13.6 L Dougherty % (Auto) 5.5 Eos % (Auto) 3.7 Baso % (Auto) 0.1 L Lymph # (Auto) 1.00 Dougherty # (Auto) 0.4 Eos # (Auto) 0.3 Baso # (Auto) 0.0 Abs Immat Gran (auto) 0.02 Absolute Neuts (auto) 5.6 Absolute Nucleated RBC 0.000 Nucleated RBC % 0.0 PT 13.7 INR 1.1 APTT 33.0 Sodium 140 Potassium 3.2 L Chloride 108 H Carbon Dioxide 29 Anion Gap 3 L BUN 19 H Creatinine 0.97 Estim Creat Clear Calc 55 Estimated GFR 58 L Glucose 105 Calcium 8.9 Total Bilirubin 0.8 AST 35 ALT 21 Alkaline Phosphatase 84 Total Protein 7.5 Albumin 3.7 Blood Type O Positive Antibody Screen Negative Quality VTE Prophylaxis VTE prophylaxis: mechanical ordered
[2025-04-18] MEDS: LACTATED RINGERS 1,000 ML 30 ML IV CONT ×2 (09:15→13:10)
[2025-04-18] MEDS: VANCOMYCIN 1,250 MG/NS 250 ML BAG 166.67 MG IVPB (09:15)
--- NOTE | 2025-04-18 09:36 | WPDANESEPPF ---
Anes - Initial Pre Proc Eval Procedure: Operation Date: 04/18/25 09:30 Proposed Procedures p Bipolar Hip Replacement(Right) - Broderick Gallagher MD Date/Time: 04/18/25 09:36 Surgeon: Sandra Ford MD Pre Op Diagnosis: R femoral neck fracture, R proximal fibular fx Patient Data Age: 64 Gender: F Height: 1.75 m Weight: 82.5 kg Last Vital Signs Temp 36.4 C 04/18/25 06:00 Pulse 77 04/18/25 06:00 Resp 18 04/18/25 06:00 BP 101/60 04/18/25 06:00 Pulse Ox 92 04/18/25 06:00 O2 Del Method Room Air 04/17/25 20:00 Allergies Allergy/AdvReac Type Severity Reaction Status Date / Time No Known Allergies Allergy Verified 04/17/25 16:04 Home Medications ?Medication ?Instructions ?Recorded ?Confirmed ?Type cetirizine 10 mg tablet (Zyrtec) 10 mg PO DAILY #30 tabs 05/28/19 04/17/25 Rx aspirin 81 mg tablet,delayed 81 mg PO DAILY 12/03/20 04/17/25 History release (Adult Aspirin Regimen) paroxetine HCl 10 mg tablet 10 mg PO DAILY #90 tabs 12/07/21 04/17/25 Rx turmeric 400 mg capsule 400 mg PO HS 10/06/22 04/17/25 History naproxen 375 mg tablet 375 mg PO BID #14 tabs 02/19/23 04/17/25 Rx B6 0.85 mg-folic 200 1 tablet PO HS 10/25/23 04/17/25 History [id number] oral chewable tablet (Neuriva Plus) potassium chloride 20 mEq See Rx Instructions .Route 09/09/24 04/17/25 Rx tablet,extended release .COMPLEX #270 tabs albuterol sulfate 90 mcg/actuation 1 inh inhalation Q4H PRN shortness 10/15/24 04/17/25 Rx aerosol inhaler (Ventolin HFA) of breath or wheezing #8.5 grams triamterene 37.5 1 tablet PO QAM #90 tabs 11/17/24 04/17/25 Rx mg-hydrochlorothiazide 25 mg tablet pravastatin 40 mg tablet 40 mg PO DAILY #90 tabs 01/16/25 04/17/25 Rx methocarbamol 750 mg tablet 750 mg PO TID PRN muscle spasm #30 04/13/25 04/17/25 Rx tabs oxycodone 5 mg tablet 5 mg PO Q8H PRN pain #10 tabs 04/13/25 04/17/25 Rx Laboratory Tests 04/17/25 04/17/25 10:51 10:52 WBC 7.3 K/mm3 (4.5-10.0) RBC 4.00 L M/mm3 (4.2-5.4) Hgb 12.1 g/dL (12.0-15.0) Hct 37.9 % (37.0-47.0) MCV 94.8 fl (80-100) MCH 30.3 pg (26-34) MCHC 31.9 L g/dl (32-36) RDW 14.1 % (11.5-14.5) Plt Count 195 k/mm3 (150-375) MPV 9.7 fl (7.4-10.4) Immature Gran % (Auto) 0.3 % (0-0.5) Neut % (Auto) 76.8 H % (45.5-73.1) Lymph % (Auto) 13.6 L % (18.3-44.2) Warren % (Auto) 5.5 % (2.6-8.5) Eos % (Auto) 3.7 % (0-4.4) Baso % (Auto) 0.1 L % (0.2-1.2) Lymph # (Auto) 1.00 K/mm3 (0.9-3.2) Warren # (Auto) 0.4 K/mm3 (0.1-0.6) Eos # (Auto) 0.3 K/mm3 (0-0.3) Baso # (Auto) 0.0 K/mm3 (0.0-0.1) Abs Immat Gran (auto) 0.02 K/mm3 (0.00-0.031) Absolute Neuts (auto) 5.6 K/mm3 (1.3-6.7) Absolute Nucleated RBC 0.000 K/mm3 (0.0-0.012) Nucleated RBC % 0.0 % (0.0-0.2) PT 13.7 Seconds (11.1-14.7) INR 1.1 APTT 33.0 Seconds (22.3-36.8) Sodium 140 mmol/L (137-145) Potassium 3.2 L mmol/L (3.4-5.0) Chloride 108 H mmol/L (98-107) Carbon Dioxide 29 mmol/L (22-30) Anion Gap 3 L mmol/L (4-12) BUN 19 H mg/dL (7-17) Creatinine 0.97 mg/dL (0.7-1.0) Estim Creat Clear Calc 55 ml/min Estimated GFR 58 L (59 - ) Glucose 105 mg/dL (65-110) Calcium 8.9 mg/dL (8.4-10.2) Total Bilirubin 0.8 mg/dL (0.2-1.3) AST 35 U/L (14-36) ALT 21 U/L (6-35) Alkaline Phosphatase 84 U/L (38-126) Total Protein 7.5 g/dL (6.3-8.2) Albumin 3.7 g/dL (3.5-5.1) Blood Type O Positive Antibody Screen Negative Patient hx anesthesia problems: none Family hx anesthesia problems: none Results Review: All pre-operative results and documents have been reviewed as part of the pre-operative evaluation. [facility] Past Medical History Medical History Abdominal mass, left upper quadrant Dyslipidemia Vitamin D deficiency Breast cancer screening Post-menopausal On alf drug therapy Surgical History Surgical History Knee joint replacement status (~2020) Family History Family History (Updated 04/17/25 @ 16:10 by Lisa Anguiano RN) Mother Hypertension Father Type 1 diabetes Social History Social History Smoking packs per day: 0.5 Smoking cigarettes per day: 10.0 Years smoked: 25 Smoking pack-years: 12.50 Smoking status: Current every day smoker Tobacco type: cigarettes Second hand tobacco smoke exposure: Yes Alcohol intake: current Alcohol use details: OCCASSIONAL - Social Substance use: never Substance use type: does not use Lack of Transportation: No Lack of Food: Never True Current Housing: I Have Housing Concerned About Future Housing: No Difficulty Paying Gas/Electric Bills: No Difficulty Paying for Meds: No Currently Unemployed: No Education: Associate Degree Difficulty w/ Childcare or Family Care: No Living arrangements: with family Gender identity (if verbalized by the patient): Female Spiritual care concerns: No Anes - Eval Final PreProcedure Day of Procedure 04/18/25 09:36 Patient weight: overweight Heart: regular rate and rhythm Lungs: clear to auscultation Airway: Mallampati scale (loose crown top front tooth) class II Neurological: alert and oriented Last oral intake: >/= 8 hours ASA classification: III Emergent: no Anesthetic plan: proceed Anesthesia type and monitoring: general ETT and standard monitoring Results Review: All pre-operative results and documents have been reviewed as part of the pre-operative evaluation. Informed Consent: The patient's anesthetic plan and its attendant risks and benefits were discussed with the patient/family/POA. Questions were solicited and answers provided to the satisfaction of the patient/family/POA.
[2025-04-18] MEDS: fentaNYL CITRATE INJ (*CRX) 100 MCG/2 ML VIAL 50 MCG IV PUSH ×2 (10:25→10:45)
--- NOTE | 2025-04-18 10:37 | PM.IMHP2 ---
H&P: HPI History of Present Illness Date/Time: 04/18/25 10:37 Chief Complaint: Right Hip pain and Right leg pain Narrative: 64 yr old female with Right Proximal fib fracture on Sunday this week after falling at home. On Sunday, her was trying to carry her and dropped her on the floor on to her Right Hip. Right hip pain at that time. He then cared for her until their appointment with Dr Bains on Sunday (yesterday). She was diagnosed with the Right Hip fracture after routine xrays in clinic. She was then sent to the ER for evaluation. NO other injuries. Right ankle xrays, CT scan and physical exam were negative for fracture on syndesmotic injury. Plan Right Hip Shekhar. Displaced femoral neck fracture. Risks benefits alternatives and complications discussed. Include but are not limited to infx, dvt, dislocation, limb length discrepancy, sciatic nerve injury and bleeding. all questions answered. [facility] Past Medical History Medical History (Updated 04/18/25 @ 10:42 by Broderick Gallagher MD) Hypokalemia Hypertension Abdominal mass, left upper quadrant Dyslipidemia Vitamin D deficiency Breast cancer screening Post-menopausal On exterminator termite drug therapy Surgical History Surgical History Knee joint replacement status (~2020) Family History Family History (Updated 04/17/25 @ 16:10 by Lisa Anguiano RN) Mother Hypertension Father Type 1 diabetes Social History Social History Smoking packs per day: 0.5 Smoking cigarettes per day: 10.0 Years smoked: 25 Smoking pack-years: 12.50 Smoking status: Current every day smoker Tobacco type: cigarettes Second hand tobacco smoke exposure: Yes Alcohol intake: current Alcohol use details: OCCASSIONAL - Social Substance use: never Substance use type: does not use Lack of Transportation: No Lack of Food: Never True Current Housing: I Have Housing Concerned About Future Housing: No Difficulty Paying Gas/Electric Bills: No Difficulty Paying for Meds: No Currently Unemployed: No Education: Associate Degree Difficulty w/ Childcare or Family Care: No Living arrangements: with family Gender identity (if verbalized by the patient): Female Spiritual care concerns: No Meds Home Medications and Allergies Home Medications ?Medication ?Instructions ?Recorded ?Confirmed ?Type cetirizine 10 mg tablet (Zyrtec) 10 mg PO DAILY #30 tabs 05/28/19 04/17/25 Rx aspirin 81 mg tablet,delayed 81 mg PO DAILY 12/03/20 04/17/25 History release (Adult Aspirin Regimen) paroxetine HCl 10 mg tablet 10 mg PO DAILY #90 tabs 12/07/21 04/17/25 Rx turmeric 400 mg capsule 400 mg PO HS 10/06/22 04/17/25 History naproxen 375 mg tablet 375 mg PO BID #14 tabs 02/19/23 04/17/25 Rx B6 0.85 mg-folic 200 1 tablet PO HS 10/25/23 04/17/25 History [id number] oral chewable tablet (Neuriva Plus) potassium chloride 20 mEq See Rx Instructions .Route 09/09/24 04/17/25 Rx tablet,extended release .COMPLEX #270 tabs albuterol sulfate 90 mcg/actuation 1 inh inhalation Q4H PRN shortness 10/15/24 04/17/25 Rx aerosol inhaler (Ventolin HFA) of breath or wheezing #8.5 grams triamterene 37.5 1 tablet PO QAM #90 tabs 11/17/24 04/17/25 Rx mg-hydrochlorothiazide 25 mg tablet pravastatin 40 mg tablet 40 mg PO DAILY #90 tabs 01/16/25 04/17/25 Rx methocarbamol 750 mg tablet 750 mg PO TID PRN muscle spasm #30 04/13/25 04/17/25 Rx tabs oxycodone 5 mg tablet 5 mg PO Q8H PRN pain #10 tabs 04/13/25 04/17/25 Rx Allergies Allergy/AdvReac Type Severity Reaction Status Date / Time No Known Allergies Allergy Verified 04/17/25 16:04 Vital Signs Vital Signs - 24 hr 04/17/25 10:45 04/17/25 11:30 04/17/25 12:15 Temperature 36.6 C Pulse Rate 69 71 67 Respiratory Rate 18 18 16 Blood Pressure 134/78 148/87 H 133/73 Pulse Oximetry 100 96 100 Oxygen Delivery 04/17/25 13:00 04/17/25 14:03 04/17/25 15:20 Temperature Pulse Rate 75 87 85 Respiratory Rate 16 16 16 Blood Pressure 124/82 105/73 108/67 Pulse Oximetry 95 95 94 Oxygen Delivery 04/17/25 16:54 04/17/25 17:30 04/17/25 20:00 Temperature 36.3 C L 36.4 C Pulse Rate 79 79 Respiratory Rate 18 Blood Pressure 103/68 109/60 Pulse Oximetry 100 Oxygen Delivery Room Air 04/17/25 22:00 04/18/25 06:00 04/18/25 08:00 Temperature 37.1 C 36.4 C Pulse Rate 85 77 Respiratory Rate 18 Blood Pressure 109/65 101/60 Pulse Oximetry 92 Oxygen Delivery Room Air Exam Narrative: Right hip shortened and externally rotated no tenderness at ankle, tenderness over the proximal fibular. Left knee incision noted with no tenderness or deformity. Const: General: cooperative and healthy appearing Nutritional Appearance: average body habitus Orientation/consciousness: oriented to person, oriented to place and oriented to time Results Labs Labs: Short CBC 04/17/25 Range/Units 10:52 WBC 7.3 (4.5-10.0) K/mm3 Hgb 12.1 (12.0-15.0) g/dL Hct 37.9 (37.0-47.0) % Plt Count 195 (150-375) k/mm3 BMP 04/17/25 10:52 Sodium 140 Potassium 3.2 L Chloride 108 H Carbon Dioxide 29 BUN 19 H Creatinine 0.97 Glucose 105 Calcium 8.9 Liver Function 04/17/25 Range/Units 10:52 Total Bilirubin 0.8 (0.2-1.3) mg/dL AST 35 (14-36) U/L ALT 21 (6-35) U/L Alkaline Phosphatase 84 (38-126) U/L Albumin 3.7 (3.5-5.1) g/dL Assessment and Plan Assessment and plan (1) Displaced fracture of right femoral neck: Code(s): S72.001A - Fracture of unspecified part of neck of right femur, initial encounter for closed fracture Status: Acute Plan 64 yr old female with Right Proximal fib fracture on Sunday this week after falling at home. On Sunday, her was trying to carry her and dropped her on the floor on to her Right Hip. Right hip pain at that time. He then cared for her until their appointment with Dr Bains on Sunday (yesterday). She was diagnosed with the Right Hip fracture after routine xrays in clinic. She was then sent to the ER for evaluation. NO other injuries. Right ankle xrays, CT scan and physical exam were negative for fracture on syndesmotic injury. Plan Right Hip Shekhar. Displaced femoral neck fracture. Risks benefits alternatives and complications discussed. Include but are not limited to infx, dvt, dislocation, limb length discrepancy, sciatic nerve injury and bleeding. all questions answered.
--- NOTE | 2025-04-18 10:42 | WPDHPUPDATE1 ---
History and Physical Update Update Date/Time: 04/18/25 10:42 64 yr old female with Right Proximal fib fracture on Sunday this week after falling at home. On Sunday, her was trying to carry her and dropped her on the floor on to her Right Hip. Right hip pain at that time. He then cared for her until their appointment with Dr Bains on Sunday (yesterday). She was diagnosed with the Right Hip fracture after routine xrays in clinic. She was then sent to the ER for evaluation. NO other injuries. Right ankle xrays, CT scan and physical exam were negative for fracture on syndesmotic injury. Plan Right Hip Shekhar. Displaced femoral neck fracture. Risks benefits alternatives and complications discussed. Include but are not limited to infx, dvt, dislocation, limb length discrepancy, sciatic nerve injury and bleeding. all questions answered.
[2025-04-18] MEDS: ceFAZolin 2 GM in SODIUM CHLORIDE 0.9% IV 50 ML 100 ML IVPB ×2 (10:46→18:14)
[2025-04-18] MEDS: TRANEXAMIC ACID 1,000MG/ISO100 1,000 MG/100 ML BAG 200 MG IVPB (11:16)
[2025-04-18] MEDS: TRANEXAMIC ACID 1,000 MG/10 ML AMPUL 1000 MG IV PUSH (12:28)
[2025-04-18] MEDS: LIDO 1%/EPINEPHRINE 1:100,000 50 ML VIAL (12:56)
[2025-04-18] MEDS: fentaNYL CITRATE INJ (*CRX) 100 MCG/2 ML VIAL 25 MCG IV PUSH ×4 (13:25→13:40)
--- NOTE | 2025-04-18 13:39 | W.PM.PROC2 ---
Procedure Note - Detailed Date of Procedure 04/18/25 Pre-op Diagnosis right femoral neck fracture, right proximal fibular fx Post-op Diagnosis Same Procedure Performed Right Hip Femoral Neck Fracture Open Treatment with Prosthetic Replacement Closed Treatment of Right Proximal Fibula Fracture Surgeon Broderick Gallagher MD Anesthesia General Indications 64 yr old female with Right Hip Femoral Neck fracture and Right Proximal Fibula fracture after fall at home. First incident on SundayApril 12, resulting in Right Proximal Fibula Fracture. While at home with her caring for her, he was attempting to lift her, when she fell on to Right Hip on Floor on SundayApr 14. They had already scheduled an appointment to see Dr Amanda in the office on SundayApr 17. It was at this time that the Right Hip Femoral Neck fracture was diagnosed by xrays. She and her were instructed to go to the ED for evaluation. Findings Right Hip Femoral neck fracture Description of Procedure After marking patient's right and again 2nd discussing the patient treatment with regards to a right hip hemiarthroplasty, and discussing the risks benefits alternatives and complications of this procedure which include but are not limited to infection or blood vessel injury bleeding DVT limb length discrepancy and dislocation, the patient was then brought to the operating room placed in supine position which time she underwent general anesthesia. She was then placed on the operating room table in the lateral decubitus position with right side with an axillary roll and the contralateral peroneal nerve padded. The right hip was then prepped and draped in a standard sterile fashion. A time-out was performed to verify correct patient correct site of surgery correct procedure and to verify indeed that IV antibiotics were administered within 1 hour of the incision time. A posterior approach was made to the patient's right hip with an incision. Dissection was then carried down into the ITB band was identified and this was sharply incised. I then exposed the posterior aspect of the patient's hip identified the piriformis and tagged the piriformis I then also tagged the short external rotators he removed this the posterior aspect of the patient's hip I then did T capsulotomy and tagged the capsule. I then identified the fracture and did my femoral neck cut at 1.5 cm from the lesser trochanter with a saw. I then removed the femoral head and measured this at 48 mm in diameter. I also note that the calcar was intact. I then proceeded to use a box osteotome to enter into the proximal aspect of patient's femur into the medullary canal with a canal finer subsequent to that. I then proceeded to broach up to a size 3 maintain the patient's natural anteversion. I then proceeded to broach up to a size 3 with a 48 mm bipolar component and noted that she was somewhat tight and somewhat long then opted for -4 neck length and she had equal limb lengths and had excellent stability. Stability was tested with the hip flexed at 90? with adduction and internal rotation to 90? with excellent stability. I then proceeded to place the actual implant size 3 with a-4 neck length and extended offset. I obtained the exact same stability profile. I then irrigated copiously and repaired the short external rotators as was the capsule to the posterior aspect of the patient's hip. The ITB band was then repaired with an interrupted Ethibond suture. Skin was closed using 2-0 Vicryl suture in the dermal layer and then jim. A dressing was placed. Patient was then transferred to the recovery room in stable condition. Implants Elan collared femoral stem size 3 with a-4 high offset and a 48 mm bipolar component ([employer]) Estimated Blood Loss 100 Drains No Packing No Pathology None sent Complications No immediate complications Condition Stable Disposition PACU
[2025-04-18] MEDS: SODIUM CHLORIDE 0.9% IV 1,000 ML 125 ML IV CONT (14:57)
--- NOTE | 2025-04-18 15:29 | PCOTNOTE ---
The patient initial evaluation was not able to be completed on 04/18 due to patient just arriving to room, large family group present, and patient requesting seen in AM. Will plan to evaluate when able.
--- NOTE | 2025-04-18 15:31 | PCPTNOTE ---
attempted PT eval, pt recently got to room and has large family visiting, pt politely requested we return tomorrow morning, will follow
[2025-04-18] MEDS: ACETAMINOPHEN 325 MG TABLET 650 MG PO (17:39)
[2025-04-18] MEDS: SENNA/DOCUSATE SODIUM TABLET 2 TAB PO (17:39)
[2025-04-18] MEDS: oxyCODONE HCL (*CRX) 5 MG TAB IR PO ×2 (18:38→22:13)
[2025-04-18] MEDS: SODIUM CHLORIDE 0.9% IV 1,000 ML 100 ML IV CONT (21:58)
[2025-04-18] MEDS: FAMOTIDINE 20 MG TABLET PO (22:16)
[2025-04-18] MEDS: ASPIRIN 81 MG ENTERIC TABLET PO (22:18)
--- NOTE | 2025-04-19 01:14 | PC.NURSE ---
2100: pt education provided on early ambulation post op. PT refused to get out of bed. 2300: pt education provided on the importance of walking after surgery. Pt refused at this time. Per pt, she wants to work with PT in the morning. Pain controlled by pain meds. 0116: tried to ambulate pt with no success. Using Incentive spirometry, SCDs on, scheduled Aspirin.
[2025-04-19] MEDS: ACETAMINOPHEN 325 MG TABLET 650 MG PO ×3 (02:19→17:00)
[2025-04-19] MEDS: ceFAZolin 2 GM in SODIUM CHLORIDE 0.9% IV 50 ML 100 ML IVPB ×2 (02:19→10:13)
[2025-04-19] MEDS: HYDROmorphone HCL INJ (*CRX) 1 MG/ML SYR 0.5 MG IV PUSH ×2 (02:24→13:09)
[2025-04-19 03:15] VITALS: BP 101/56; PULSE 85; RESP 19; TEMP 37.2; O2SAT 94
[2025-04-19 07:03] LABS: Hematocrit 28.0 % (37.0-47.0); Hemoglobin 9.0 g/dL (12.0-15.0); Immature Granulocyte Percent A 0.6 % (0-0.5); Lymphocytes Absolute Auto 0.96 K/mm3 (0.9-3.2); Mean Corpuscular HGB Conc 32.1 g/dl (32-36); Mean Corpuscular Hemoglobin 30.7 pg (26-34); Mean Corpuscular Volume 95.6 fl (80-100); Nucleated Red Blood Cells Absolute Auto 0.000 K/mm3 (0.0-0.012); Nucleated Red Blood Cells Perc 0.0 % (0.0-0.2); Platelet Count Result 182 k/mm3 (150-375); Red Blood Count 2.93 M/mm3 (4.2-5.4); White Blood Count 8.3 K/mm3 (4.5-10.0)
[2025-04-19 07:15] VITALS: BP 114/74; PULSE 86; RESP 18; TEMP 37.1; O2SAT 97
[2025-04-19 07:21] LABS: Alanine Aminotransferase 20 U/L (6-35); Albumin Level 2.8 g/dL (3.5-5.1); Alkaline Phosphatase 60 U/L (38-126); Anion Gap 1 mmol/L (4-12); Aspartate Amino Transferase 37 U/L (14-36); Bilirubin,Total 0.3 mg/dL (0.2-1.3); Blood Urea Nitrogen 20 mg/dL (7-17); Calcium 7.9 mg/dL (8.4-10.2); Carbon Dioxide 26 mmol/L (22-30); Chloride 106 mmol/L (98-107); Estimated CRCL calculation 59 ml/min; Estimated Glomerular Filt Rate > 60; Glucose 110 mg/dL (65-110); Potassium 3.9 mmol/L (3.4-5.0); Sodium 133 mmol/L (137-145); Total Protein 5.9 g/dL (6.3-8.2)
[2025-04-19] MEDS: SENNA/DOCUSATE SODIUM TABLET 2 TAB PO (08:12)
[2025-04-19] MEDS: ASPIRIN 81 MG ENTERIC TABLET PO ×2 (08:14→21:32)
[2025-04-19] MEDS: FAMOTIDINE 20 MG TABLET PO ×2 (08:14→21:32)
[2025-04-19] MEDS: oxyCODONE HCL (*CRX) 5 MG TAB IR PO ×4 (08:21→21:32)
[2025-04-19 09:00] VITALS: O2SAT 98
[2025-04-19 11:15] VITALS: BP 104/79; PULSE 85; RESP 18; TEMP 37.3; O2SAT 98
--- NOTE | 2025-04-19 12:29 | P.PNIM_ITS ---
Assessment and Plan Assessment and Plan (1) Closed fracture of neck of right femur: Qualifiers: Encounter type: initial encounter Qualified Code(s): S72.001A - Fracture of unspecified part of neck of right femur, initial encounter for c losed fracture Code(s): S72.001A - Fracture of unspecified part of neck of right femur, initial encounter for closed fracture Status: Acute Assessment and Plan: Patient sustained a ground level fall on Sunday. Her was trying to assist her when they lost their balance causing them to both fall. The patient fell onto her right hip, hit the back of her head, but did not lose consciousness. She has been unable to bear weight on her right lower extremity or ambulate since the fall. Had an additional fall on Sunday where she sustained a proximal right fibular fracture, see below. Admitted for surgical management of her right femoral neck fracture. CT of the hip showed a mildly comminuted right femoral neck fracture with foreshortening and varus angulation. - Surgical repair 04/18 via ortho - analgesics p.r.n.: Tylenol, [place], Dilaudid - last bowel movement 2 days prior to arrival on 04/15, start bowel regimen including MiraLax b.i.d. and docusate b.i.d. Refusing enema or suppository at this time - Continue with PT/OT postop and possibility of acute rehab services given she has an additional fracture in her right lower extremity (2) Fracture of proximal end of right fibula: Qualifiers: Encounter type: subsequent encounter Fracture healing: with routine healing Fracture morphology: unspecified fracture morphology Fracture type: closed Qualified Code(s): S82.831D - Other fracture of upper and lower end of right fibula, subsequent encounter for closed fracture with routine healing Code(s): S82.831A - Other fracture of upper and lower end of right fibula, initial encounter for closed fracture Status: Acute Assessment and Plan: Sustained a fall on Thursday 04/12, evaluated on Friday 04/13. XR showed a Hairline fracture of proximal shaft of the right fibula. Knee immobilizer was placed and she was discharged home with follow-up with the orthopedic team. She had follow-up today with Dr. Amanda. However given her new injury she was transferred to the emergency department for further evaluation. - continue knee immobilizer once no longer on bed rest - continue PT/OT Plan Diet: Reg GI Prophylaxis: N/a DVT Prophylaxis: SCDs IV fluids: N/A Lines/Tubes: pIV Code Status: Full code Medical Record Review I have reviewed the following patient records and this information was taken into consideration when formulating the assessment and plan.: previous labs and previous ER visits Subjective Date/time seen: 04/19/25 1010 Interval history: Pt sitting up in chair comfortably with at the chairside upon my arrival. Pt feels good today and is having only mild pain after working with therapy. Only c/o constipation. Denies N/V/C, CP, SOB, or any other sx. Review of Systems Review of Systems: All systems reviewed & are unremarkable except as noted in HPI and below Exam Const: General: comfortable and no acute distress Other: , female, nontoxic appearance HENMT: Face/Nose/Sinus: Normal nares present Mouth: Yes moist mucous membranes Eyes: General: appearance normal, both eyes and all related structures Sclera: sclerae normal Pupils: Equal, round and reactive pupils present EOM: EOMs intact bilaterally Resp: Effort & Inspection: normal respiratory effort Auscultation: clear to auscultation bilaterally Cardio: Rate: regular rate Rhythm: regular rhythm Other: S1-S2 present without murmur, rub, ectopy GI: Other: Abdomen soft, mildly distended, nontender. Normoactive bowel sounds in all quadrants. Skin: General skin exam: normal color and no rashes or lesions noted Wounds: no wounds Neuro: Cranial nerves: Yes Equal, round and reactive pupils present Speech: normal speech Sensory Exam: normal sensation Other: A&O x4. Decreased range of motion and strength in the right lower extremities secondary to pain. Extrem: Other: DP pulses palpable, surgical dressing applied laterally, CDI, with ice pack applied Psych: Mental Status: mental status grossly normal Affect: normal affect Other: Good insight and judgment, pleasant Objective Data Vital Signs Vital Signs: Vital Signs - 24 hr 04/18/25 13:10 04/18/25 13:25 04/18/25 13:40 Temperature 97.3 F L Pulse Rate 118 H 78 81 Respiratory Rate 14 12 12 Blood Pressure 118/82 131/86 114/77 Pulse Oximetry 100 100 100 Oxygen Delivery Simple Face Mask Simple Face Mask Simple Face Mask Oxygen Flow Rate 8 8 8 Fraction of Inspired Oxygen 04/18/25 13:55 04/18/25 14:12 04/18/25 14:15 Temperature 97.5 F L 97.8 F 97.8 F Pulse Rate 83 88 94 Respiratory Rate 12 12 14 Blood Pressure 94/72 L 113/97 H 107/85 Pulse Oximetry 100 100 95 Oxygen Delivery Nasal Cannula Nasal Cannula Oxygen Flow Rate 2 2 Fraction of Inspired Oxygen 04/18/25 15:15 04/18/25 15:24 04/18/25 19:15 Temperature 97.5 F L 98.6 F Pulse Rate 91 84 Respiratory Rate 14 17 Blood Pressure 101/83 90/61 L Pulse Oximetry 100 97 97 Oxygen Delivery Nasal Cannula Oxygen Flow Rate 2 Fraction of Inspired Oxygen 04/18/25 23:15 04/19/25 03:15 04/19/25 07:15 Temperature 99.3 F 98.9 F 98.7 F Pulse Rate 82 85 86 Respiratory Rate 18 19 18 Blood Pressure 102/71 101/56 L 114/74 Pulse Oximetry 96 94 97 Oxygen Delivery Oxygen Flow Rate Fraction of Inspired Oxygen 04/19/25 09:00 04/19/25 09:32 Temperature Pulse Rate Respiratory Rate Blood Pressure Pulse Oximetry 98 Oxygen Delivery Room Air Room Air Oxygen Flow Rate Fraction of Inspired Oxygen 21 Intake/Output Intake/Output: Intake & Output 04/16/25 04/17/25 04/18/25 04/19/25 23:59 23:59 23:59 23:59 Intake Total 240 727.5 340 Output Total 300 500 Balance 240 427.5 -160 Meds/Results Medications: Active Medications Generic Name Dose Route Start Last Admin Trade Name Jonelq PRN Reason Stop Dose Admin Acetaminophen 650 mg 04/18/25 18:00 04/19/25 11:55 Acetaminophen 325 Mg Tablet PO 650 mg Q6HR SATYA Administration Aspirin 81 mg 04/18/25 21:00 04/19/25 08:14 Aspirin 81 Mg Enteric Tablet PO 81 mg Q12HR SATYA Administration Famotidine 20 mg 04/18/25 21:00 04/19/25 08:14 Famotidine 20 Mg Tablet PO 20 mg Q12HR SATYA Administration Hydromorphone HCl 1 mg 04/18/25 13:29 Hydromorphone Hcl Inj (*Crx) 1 Mg/Ml Syr IV PUSH Q2H PRN Breakthrough Pain Rated 7-10 or NPO Hydromorphone HCl 0.5 mg 04/18/25 13:29 04/19/25 02:24 Hydromorphone Hcl Inj (*Crx) 1 Mg/Ml Syr IV PUSH 0.5 mg Q2H PRN Administration Breakthrough Pain Rated 4-6 or NPO Ibuprofen 800 mg in 200 mls @ 400 mls/hr 04/18/25 13:29 Caldolor 800 Mg/200 Ml IVPB Q6H PRN Breakthrough Pain Rated 1-3 or NPO Naloxone HCl 0.1 mg 04/18/25 13:29 Naloxone Hcl 0.4 Mg/Ml Vial IV PUSH Q2M PRN Opiate Reversal Ondansetron HCl 4 mg 04/18/25 13:29 Ondansetron Inj 4 Mg/2 Ml Vial IV PUSH Q4H PRN Nausea And Vomiting Oxycodone HCl 5 mg 04/18/25 13:29 04/19/25 11:56 Oxycodone Hcl (*Crx) 5 Mg Tab Ir PO 5 mg Q4H PRN Administration Pain Rated 4-6 Oxycodone HCl 5 mg 04/18/25 13:29 04/19/25 08:21 Oxycodone Hcl (*Crx) 5 Mg Tab Ir PO 5 mg Q4H PRN Administration Pain Rated 7-10 Polyethylene Glycol 17 gm 04/19/25 09:00 04/19/25 08:12 Polyethylene Glycol 3350 17 Gm Powd.Pack PO 17 gm QAM SATYA Administration Senna/Docusate Sodium 2 tab 04/18/25 17:00 04/19/25 08:12 Senna/Docusate Sodium Tablet PO 2 tab BID SATYA Administration Tramadol HCl 50 mg 04/18/25 13:29 Tramadol Hcl (*Crx) 50 Mg Tablet PO Q4H PRN Pain Rated 1-3 Radiology Results: ITS Impressions Chest X-Ray 04/17/25 11:19 IMPRESSION: 1. Possible vascular ectasia versus lymphadenopathy in the left hilar region. This appears more pronounced compared to the July 23 exam. 2. Consider correlation with chest CT for complete evaluation. Head CT 04/17/25 12:16 IMPRESSION: 1. No gross intracranial mass effect or hemorrhage; probable old infarction versus small cystic lesion in the mesial temporal region on the left side. 2. Extensive opacification of the maxillary air cells with somewhat irregular ap pearance of the medial wall of the right maxillary sinus. Query if patient has experienced facial trauma. If there is concern for facial injury, facial bone CT recommended. Cervical Spine CT 04/17/25 12:19 IMPRESSION: No fracture lucency C1-C7. Hip CT 04/17/25 12:22 IMPRESSION: Mildly comminuted right femoral neck fracture with foreshortening and varus angulation. No other fracture or pathologic lesion seen. No large hematoma. Ankle CT 04/17/25 12:23 IMPRESSION: Moderately extensive soft tissue swelling and/or injury with no fracture lucency in the right ankle. Ankle X-Ray 04/17/25 12:39 IMPRESSION: 1. No displaced fracture lucency. Hip/Pelvis X-Ray 04/18/25 14:10 Impression: No acute fracture or malalignment. Labs Labs: Laboratory Results - last 24 hr 04/19/25 06:43 WBC 8.3 RBC 2.93 L Hgb 9.0 L D Hct 28.0 L MCV 95.6 MCH 30.7 MCHC 32.1 RDW 13.8 Plt Count 182 MPV 9.9 Immature Gran % (Auto) 0.6 H Neut % (Auto) 75.7 H Lymph % (Auto) 11.5 L [place] % (Auto) 12.0 H Eos % (Auto) 0.1 Baso % (Auto) 0.1 L Lymph # (Auto) 0.96 [place] # (Auto) 1.0 H Eos # (Auto) 0.0 Baso # (Auto) 0.0 Abs Immat Gran (auto) 0.05 H Absolute Neuts (auto) 6.3 Absolute Nucleated RBC 0.000 Nucleated RBC % 0.0 Sodium 133 L Potassium 3.9 Chloride 106 Carbon Dioxide 26 Anion Gap 1 L BUN 20 H Creatinine 0.90 Estim Creat Clear Calc 59 Estimated GFR > 60 Glucose 110 Calcium 7.9 L Total Bilirubin 0.3 AST 37 H ALT 20 Alkaline Phosphatase 60 Total Protein 5.9 L Albumin 2.8 L Quality VTE Prophylaxis VTE prophylaxis: mechanical ordered
--- NOTE | 2025-04-19 14:40 | PM.PNORT ---
Progress Note: A&P Assessment and Plan (1) Status post hemiarthroplasty of right hip: Code(s): Z96.641 - Presence of right artificial hip joint Status: Acute Plan POD 1 Right Hip Shekhar with Right Proximal Fib fx - social work consult for rehab - cont ASA for DVT prophylaxis Subjective Subjective Date/Time Seen: 04/19/25 14:40 Post Op day: 1 (Right Hip Shekhar) Principal diagnosis: Right Hip [place]har Postop Interval history: Pain managed well. Exam Narrative: Limb lengths equal. Const: General: cooperative, healthy appearing, comfortable and no acute distress Objective Data Vital Signs Vital Signs: Vital Signs - 24 hr 04/18/25 15:15 04/18/25 15:24 04/18/25 19:15 Temperature 36.4 C L 37.0 C Pulse Rate 91 84 Respiratory Rate 14 17 Blood Pressure 101/83 90/61 L Pulse Oximetry 100 97 97 Oxygen Delivery Nasal Cannula Oxygen Flow Rate 2 Fraction of Inspired Oxygen 04/18/25 23:15 04/19/25 03:15 04/19/25 07:15 Temperature 37.4 C 37.2 C 37.1 C Pulse Rate 82 85 86 Respiratory Rate 18 19 18 Blood Pressure 102/71 101/56 L 114/74 Pulse Oximetry 96 94 97 Oxygen Delivery Oxygen Flow Rate Fraction of Inspired Oxygen 04/19/25 09:00 04/19/25 09:32 04/19/25 11:15 Temperature 37.3 C Pulse Rate 85 Respiratory Rate 18 Blood Pressure 104/79 Pulse Oximetry 98 98 Oxygen Delivery Room Air Room Air Oxygen Flow Rate Fraction of Inspired Oxygen 21 Intake/Output Intake/Output: Intake & Output 04/16/25 04/17/25 04/18/25 04/19/25 23:59 23:59 23:59 23:59 Intake Total 240 727.5 562 Output Total 300 500 Balance 240 427.5 62 Meds/Results Medications: Active Medications Generic Name Dose Route Start Last Admin Trade Name Freq PRN Reason Stop Dose Admin Acetaminophen 650 mg 04/18/25 18:00 04/19/25 11:55 Acetaminophen 325 Mg Tablet PO 650 mg Q6HR SATYA Administration Albuterol 1 puff 04/19/25 13:00 Albuterol Sulfate (*Sp) Aerosol 1 Puff INHALATION Q4H PRN Shortness Of Breath Or Wheezing Aspirin 81 mg 04/18/25 21:00 04/19/25 08:14 Aspirin 81 Mg Enteric Tablet PO 81 mg Q12HR SATYA Administration Bisacodyl 10 mg 04/19/25 13:04 Bisacodyl 10 Mg Suppository RECTAL QAM PRN Constipation Famotidine 20 mg 04/18/25 21:00 04/19/25 08:14 Famotidine 20 Mg Tablet PO 20 mg Q12HR SATYA Administration Hydromorphone HCl 1 mg 04/18/25 13:29 Hydromorphone Hcl Inj (*Crx) 1 Mg/Ml Syr IV PUSH Q2H PRN Breakthrough Pain Rated 7-10 or NPO Hydromorphone HCl 0.5 mg 04/18/25 13:29 04/19/25 13:09 Hydromorphone Hcl Inj (*Crx) 1 Mg/Ml Syr IV PUSH 0.5 mg Q2H PRN Administration Breakthrough Pain Rated 4-6 or NPO Ibuprofen 800 mg in 200 mls @ 400 mls/hr 04/18/25 13:29 Caldolor 800 Mg/200 Ml IVPB Q6H PRN Breakthrough Pain Rated 1-3 or NPO Loratadine 10 mg 04/20/25 09:00 Loratadine 10 Mg Tablet PO QAM [facility] Methocarbamol 750 mg 04/19/25 13:00 Methocarbamol 750 Mg Tablet PO TID PRN Muscle Spasm Naloxone HCl 0.1 mg 04/18/25 13:29 Naloxone Hcl 0.4 Mg/Ml Vial IV PUSH Q2M PRN Opiate Reversal Naproxen 375 mg 04/19/25 17:00 Naproxen 375 Mg Tablet PO BID [facility] Ondansetron HCl 4 mg 04/18/25 13:29 Ondansetron Inj 4 Mg/2 Ml Vial IV PUSH Q4H PRN Nausea And Vomiting Oxycodone HCl 5 mg 04/18/25 13:29 04/19/25 11:56 Oxycodone Hcl (*Crx) 5 Mg Tab Ir PO 5 mg Q4H PRN Administration Pain Rated 4-6 Oxycodone HCl 5 mg 04/18/25 13:29 04/19/25 08:21 Oxycodone Hcl (*Crx) 5 Mg Tab Ir PO 5 mg Q4H PRN Administration Pain Rated 7-10 Paroxetine HCl 10 mg 04/20/25 09:00 Paroxetine 10 Mg Tablet PO DAILY SATYA Polyethylene Glycol 17 gm 04/19/25 09:00 04/19/25 08:12 Polyethylene Glycol 3350 17 Gm Powd.Pack PO 17 gm QAM SATYA Administration Pravastatin Sodium 40 mg 04/20/25 09:00 Pravastatin Sodium 20 Mg Tablet PO DAILY SATYA Senna/Docusate Sodium 2 tab 04/18/25 17:00 04/19/25 08:12 Senna/Docusate Sodium Tablet PO 2 tab BID SATYA Administration Tramadol HCl 50 mg 04/18/25 13:29 Tramadol Hcl (*Crx) 50 Mg Tablet PO Q4H PRN Pain Rated 1-3 Triamterene/Hydrochlorothiazide 1 tab 04/20/25 09:00 Triamterene 37.5 Mg/Hctz 25 Mg (Maxzide) Tablet PO QAM [facility] Radiology Results: ITS Impressions Chest X-Ray 04/17/25 11:19 IMPRESSION: 1. Possible vascular ectasia versus lymphadenopathy in the left hilar region. This appears more pronounced compared to the July 23 exam. 2. Consider correlation with chest CT for complete evaluation. Head CT 04/17/25 12:16 IMPRESSION: 1. No gross intracranial mass effect or hemorrhage; probable old infarction versus small cystic lesion in the mesial temporal region on the left side. 2. Extensive opacification of the maxillary air cells with somewhat irregular appearance of the medial wall of the right maxillary sinus. Query if patient has experienced facial trauma. If there is concern for facial injury, facial bone CT recommended. Cervical Spine CT 04/17/25 12:19 IMPRESSION: No fracture lucency C1-C7. Hip CT 04/17/25 12:22 IMPRESSION: Mildly comminuted right femoral neck fracture with foreshortening and varus angulation. No other fracture or pathologic lesion seen. No large hematoma. Ankle CT 04/17/25 12:23 IMPRESSION: Moderately extensive soft tissue swelling and/or injury with no fracture lucency in the right ankle. Ankle X-Ray 04/17/25 12:39 IMPRESSION: 1. No displaced fracture lucency. Hip/Pelvis X-Ray 04/18/25 14:10 Impression: No acute fracture or malalignment. Labs Labs: Laboratory Results - last 24 hr 04/19/25 06:43 WBC 8.3 RBC 2.93 L Hgb 9.0 L D Hct 28.0 L MCV 95.6 MCH 30.7 MCHC 32.1 RDW 13.8 Plt Count 182 MPV 9.9 Immature Gran % (Auto) 0.6 H Neut % (Auto) 75.7 H Lymph % (Auto) 11.5 L [place] % (Auto) 12.0 H Eos % (Auto) 0.1 Baso % (Auto) 0.1 L Lymph # (Auto) 0.96 [place] # (Auto) 1.0 H Eos # (Auto) 0.0 Baso # (Auto) 0.0 Abs Immat Gran (auto) 0.05 H Absolute Neuts (auto) 6.3 Absolute Nucleated RBC 0.000 Nucleated RBC % 0.0 Sodium 133 L Potassium 3.9 Chloride 106 Carbon Dioxide 26 Anion Gap 1 L BUN 20 H Creatinine 0.90 Estim Creat Clear Calc 59 Estimated GFR > 60 Glucose 110 Calcium 7.9 L Total Bilirubin 0.3 AST 37 H ALT 20 Alkaline Phosphatase 60 Total Protein 5.9 L Albumin 2.8 L
[2025-04-19 15:15] VITALS: BP 108/72; PULSE 93; RESP 20; TEMP 36.6; O2SAT 99
[2025-04-19] MEDS: NAPROXEN 375 MG TABLET PO (17:04)
[2025-04-19] MEDS: ALBUTEROL SULFATE (*SP) AEROSOL 1 PUFF INHALATION (17:27)
[2025-04-19 21:34] VITALS: BP 100/68; PULSE 81; RESP 16; TEMP 36.6; O2SAT 98
[2025-04-20] MEDS: ACETAMINOPHEN 325 MG TABLET 650 MG PO ×5 (00:30→23:42)
[2025-04-20 06:05] LABS: Hematocrit 31.2 % (37.0-47.0); Hemoglobin 9.8 g/dL (12.0-15.0); Immature Granulocyte Percent A 0.5 % (0-0.5); Lymphocytes Absolute Auto 3.07 K/mm3 (0.9-3.2); Mean Corpuscular HGB Conc 31.4 g/dl (32-36); Mean Corpuscular Hemoglobin 30.5 pg (26-34); Mean Corpuscular Volume 97.2 fl (80-100); Nucleated Red Blood Cells Absolute Auto 0.000 K/mm3 (0.0-0.012); Nucleated Red Blood Cells Perc 0.0 % (0.0-0.2); Platelet Count Result 226 k/mm3 (150-375); Red Blood Count 3.21 M/mm3 (4.2-5.4); White Blood Count 7.5 K/mm3 (4.5-10.0)
[2025-04-20 06:32] LABS: Alanine Aminotransferase 21 U/L (6-35); Albumin Level 3.1 g/dL (3.5-5.1); Alkaline Phosphatase 72 U/L (38-126); Anion Gap 0 mmol/L (4-12); Aspartate Amino Transferase 45 U/L (14-36); Bilirubin,Total 0.5 mg/dL (0.2-1.3); Blood Urea Nitrogen 23 mg/dL (7-17); Calcium 8.4 mg/dL (8.4-10.2); Carbon Dioxide 31 mmol/L (22-30); Chloride 106 mmol/L (98-107); Estimated CRCL calculation 56 ml/min; Estimated Glomerular Filt Rate 59; Glucose 84 mg/dL (65-110); Potassium 3.5 mmol/L (3.4-5.0); Sodium 137 mmol/L (137-145); Total Protein 6.5 g/dL (6.3-8.2)
[2025-04-20 06:44] VITALS: BP 95/67; PULSE 77; RESP 20; TEMP 36.8; O2SAT 98
[2025-04-20 08:00] VITALS: PULSE 77; RESP 20; O2SAT 98
[2025-04-20] MEDS: NAPROXEN 375 MG TABLET PO ×2 (08:33→17:30)
[2025-04-20] MEDS: ASPIRIN 81 MG ENTERIC TABLET PO ×2 (08:33→21:09)
[2025-04-20] MEDS: oxyCODONE HCL (*CRX) 5 MG TAB IR PO (08:33)
[2025-04-20] MEDS: PRAVASTATIN SODIUM 20 MG TABLET 40 MG PO (08:33)
[2025-04-20] MEDS: LORATADINE 10 MG TABLET PO (08:33)
[2025-04-20] MEDS: FAMOTIDINE 20 MG TABLET PO ×2 (08:33→21:09)
[2025-04-20] MEDS: SENNA/DOCUSATE SODIUM TABLET 2 TAB PO ×2 (08:34→17:30)
[2025-04-20] MEDS: TRIAMTERENE 37.5 MG/HCTZ 25 MG (MAXZIDE) TABLET 1 TAB PO (08:34)
[2025-04-20] MEDS: ALBUTEROL SULFATE (*SP) AEROSOL 1 PUFF INHALATION (08:55)
--- NOTE | 2025-04-20 09:51 | P.PNIM_ITS ---
Assessment and Plan Assessment and Plan (1) Closed fracture of neck of right femur: Qualifiers: Encounter type: initial encounter Qualified Code(s): S72.001A - Fracture of unspecified part of neck of right femur, initial encounter for c losed fracture Code(s): S72.001A - Fracture of unspecified part of neck of right femur, initial encounter for closed fracture Status: Acute Assessment and Plan: Patient sustained a ground level fall on Sunday. Her was trying to assist her when they lost their balance causing them to both fall. The patient fell onto her right hip, hit the back of her head, but did not lose consciousness. She has been unable to bear weight on her right lower extremity or ambulate since the fall. Had an additional fall on Sunday where she sustained a proximal right fibular fracture, see below. Admitted for surgical management of her right femoral neck fracture. CT of the hip showed a mildly comminuted right femoral neck fracture with foreshortening and varus angulation. - Surgical repair 04/18 via ortho - analgesics p.r.n.: Tylenol, [place], Dilaudid - x4 BMs this AM - Continue with PT/OT postop and acute rehab services given she has an additional fracture in her right lower extremity at discharge, CC following - Continue ASA for DVT prophylaxis per ortho (2) Fracture of proximal end of right fibula: Qualifiers: Encounter type: subsequent encounter Fracture healing: with routine healing Fracture morphology: unspecified fracture morphology Fracture type: closed Qualified Code(s): S82.831D - Other fracture of upper and lower end of right fibula, subsequent encounter for closed fracture with routine healing Code(s): S82.831A - Other fracture of upper and lower end of right fibula, initial encounter for closed fracture Status: Acute Assessment and Plan: Sustained a fall on Thursday 04/12, evaluated on Friday 04/13. XR showed a Hairline fracture of proximal shaft of the right fibula. Knee immobilizer was placed and she was discharged home with follow-up with the orthopedic team. She had follow-up today with Dr. Amanda. However given her new injury she was transferred to the emergency department for further evaluation. - continue knee immobilizer once no longer on bed rest - continue PT/OT Plan Diet: Reg GI Prophylaxis: N/a DVT Prophylaxis: SCDs, ASA IV fluids: N/A Lines/Tubes: pIV Code Status: Full code Medical Record Review I have reviewed the following patient records and this information was taken into consideration when formulating the assessment and plan.: previous labs and previous ER visits Subjective Date/time seen: 04/20/25 0853 Interval history: Pt sitting up in bed comfortably upon my arrival. Pt feels good today and is having only mild pain after working with therapy. Reports having x4 BMs this AM. Denies N/V/C, CP, SOB, or any other sx. Reluctantly agreeable with rehab placement for continued therapy, CC following. Review of Systems Review of Systems: All systems reviewed & are unremarkable except as noted in HPI and below Exam Const: General: comfortable and no acute distress Other: , female, nontoxic appearance HENMT: Face/Nose/Sinus: Normal nares present Mouth: Yes moist mucous membra nicolasa Eyes: General: appearance normal, both eyes and all related structures Sclera: sclerae normal Pupils: Equal, round and reactive pupils present EOM: EOMs intact bilaterally Resp: Effort & Inspection: normal respiratory effort Auscultation: clear to auscultation bilaterally Cardio: Rate: regular rate Rhythm: regular rhythm Other: S1-S2 present without murmur, rub, ectopy GI: Other: Abdomen soft, mildly distended, nontender. Normoactive bowel sounds in all quadrants. Skin: General skin exam: normal color and no rashes or lesions noted Wounds: no wounds Neuro: Cranial nerves: Yes Equal, round and reactive pupils present Speech: normal speech Sensory Exam: normal sensation Other: A&O x4. Decreased range of motion and strength in the right lower extremities secondary to pain. Extrem: Other: DP pulses palpable, surgical dressing applied laterally, CDI Psych: Mental Status: mental status grossly normal Affect: normal affect Other: Good insight and judgment, pleasant Objective Data Vital Signs Vital Signs: Vital Signs - 24 hr 04/19/25 11:15 04/19/25 15:15 04/19/25 20:00 Temperature 99.2 F 97.8 F Pulse Rate 85 93 Respiratory Rate 18 20 Blood Pressure 104/79 108/72 Pulse Oximetry 98 99 Oxygen Delivery Room Air 04/19/25 21:34 04/20/25 06:44 Temperature 97.9 F 98.2 F Pulse Rate 81 77 Respiratory Rate 16 20 Blood Pressure 100/68 95/67 L Pulse Oximetry 98 98 Oxygen Delivery Intake/Output Intake/Output: Intake & Output 04/17/25 04/18/25 04/19/25 04/20/25 23:59 23:59 23:59 23:59 Intake Total 240 727.5 2512 920 Output Total 300 900 550 Balance 240 427.5 1612 370 Meds/Results Medications: Active Medications Generic Name Dose Route Start Last Admin Trade Name Freq PRN Reason Stop Dose Admin Acetaminophen 650 mg 04/18/25 18:00 04/20/25 05:23 Acetaminophen 325 Mg Tablet PO 650 mg Q6HR SATYA Administration Albuterol 1 puff 04/19/25 13:00 04/20/25 08:55 Albuterol Sulfate (*Sp) Aerosol 1 Puff INHALATION 1 puff Q4H PRN Administration Shortness Of Breath Or Wheezing Aspirin 81 mg 04/18/25 21:00 04/20/25 08:33 Aspirin 81 Mg Enteric Tablet PO 81 mg Q12HR SATYA Administration Bisacodyl 10 mg 04/19/25 13:04 Bisacodyl 10 Mg Suppository RECTAL QAM PRN Constipation Famotidine 20 mg 04/18/25 21:00 04/20/25 08:33 Famotidine 20 Mg Tablet PO 20 mg Q12HR SATYA Administration Hydromorphone HCl 1 mg 04/18/25 13:29 Hydromorphone Hcl Inj (*Crx) 1 Mg/Ml Syr IV PUSH Q2H PRN Breakthrough Pain Rated 7-10 or NPO Hydromorphone HCl 0.5 mg 04/18/25 13:29 04/19/25 13:09 Hydromorphone Hcl Inj (*Crx) 1 Mg/Ml Syr IV PUSH 0.5 mg Q2H PRN Administration Breakthrough Pain Rated 4-6 or NPO Ibuprofen 800 mg in 200 mls @ 400 mls/hr 04/18/25 13:29 Caldolor 800 Mg/200 Ml IVPB Q6H PRN Breakthrough Pain Rated 1-3 or NPO Loratadine 10 mg 04/20/25 09:00 04/20/25 08:33 Loratadine 10 Mg Tablet PO 10 mg QAM SATYA Administration Methocarbamol 750 mg 04/19/25 13:00 Methocarbamol 750 Mg Tablet PO TID PRN Muscle Spasm Naloxone HCl 0.1 mg 04/18/25 13:29 Naloxone Hcl 0.4 Mg/Ml Vial IV PUSH Q2M PRN Opiate Reversal Naproxen 375 mg 04/19/25 17:00 04/20/25 08:33 Naproxen 375 Mg Tablet PO 375 mg BID SATYA Administration Ondansetron HCl 4 mg 04/18/25 13:29 Ondansetron Inj 4 Mg/2 Ml Vial IV PUSH Q4H PRN Nausea And Vomiting Oxycodone HCl 5 mg 04/18/25 13:29 04/20/25 08:33 Oxycodone Hcl (*Crx) 5 Mg Tab Ir PO 5 mg Q4H PRN Administration Pain Rated 4-6 Oxycodone HCl 5 mg 04/18/25 13:29 04/19/25 08:21 Oxycodone Hcl (*Crx) 5 Mg Tab Ir PO 5 mg Q4H PRN Administration Pain Rated 7-10 Paroxetine HCl 10 mg 04/20/25 09:00 04/20/25 08:33 Paroxetine 10 Mg Tablet PO 10 mg DAILY SATYA Administration Polyethylene Glycol 17 gm 04/19/25 09:00 04/20/25 08:36 Polyethylene Glycol 3350 17 Gm Powd.Pack PO Not Given QAM SATYA Pravastatin Sodium 40 mg 04/20/25 09:00 04/20/25 08:33 Pravastatin Sodium 20 Mg Tablet PO 40 mg DAILY SATYA Administration Senna/Docusate Sodium 2 tab 04/18/25 17:00 04/20/25 08:34 Senna/Docusate Sodium Tablet PO 2 tab BID SATYA Administration Tramadol HCl 50 mg 04/18/25 13:29 Tramadol Hcl (*Crx) 50 Mg Tablet PO Q4H PRN Pain Rated 1-3 Triamterene/Hydrochlorothiazide 1 tab 04/20/25 09:00 04/20/25 08:34 Triamterene 37.5 Mg/Hctz 25 Mg (Maxzide) Tablet PO 1 tab QAM SATYA Administration Radiology Results: ITS Impressions Chest X-Ray 04/17/25 11:19 IMPRESSION: 1. Possible vascular ectasia versus lymphadenopathy in the left hilar region. This appears more pronounced compared to the July 23 exam. 2. Consider correlation with chest CT for complete evaluation. Head CT 04/17/25 12:16 IMPRESSION: 1. No gross intracranial mass effect or hemorrhage; probable old infarction versus small cystic lesion in the mesial temporal region on the left side. 2. Extensive opacification of the maxillary air cells with somewhat irregular appearance of the medial wall of the right maxillary sinus. Query if patient has experienced facial trauma. If there is concern for facial injury, facial bone CT recommended. Cervical Spine CT 04/17/25 12:19 IMPRESSION: No fracture lucency C1-C7. Hip CT 04/17/25 12:22 IMPRESSION: Mildly comminuted right femoral neck fracture with foreshortening and varus angulation. No other fracture or pathologic lesion seen. No large hematoma. Ankle CT 04/17/25 12:23 IMPRESSION: Moderately extensive soft tissue swelling and/or injury with no fracture lucency in the right ankle. Ankle X-Ray 04/17/25 12:39 IMPRESSION: 1. No displaced fracture lucency. Hip/Pelvis X-Ray 04/18/25 14:10 Impression: No acute fracture or malalignment. Labs Labs: Laboratory Results - last 24 hr 04/20/25 05:14 WBC 7.5 RBC 3.21 L Hgb 9.8 L Hct 31.2 L MCV 97.2 MCH 30.5 MCHC 31.4 L RDW 13.9 Plt Count 226 MPV 10.0 Immature Gran % (Auto) 0.5 Neut % (Auto) 45.3 L Lymph % (Auto) 40.8 [place] % (Auto) 8.9 H Eos % (Auto) 4.2 Baso % (Auto) 0.3 Lymph # (Auto) 3.07 [place] # (Auto) 0.7 H Eos # (Auto) 0.3 Baso # (Auto) 0.0 Abs Immat Gran (auto) 0.04 H Absolute Neuts (auto) 3.4 Absolute Nucleated RBC 0.000 Nucleated RBC % 0.0 Sodium 137 Potassium 3.5 Chloride 106 Carbon Dioxide 31 H Anion Gap 0 L BUN 23 H Creatinine 0.96 Estim Creat Clear Calc 56 Estimated GFR 59 Glucose 84 Calcium 8.4 Total Bilirubin 0.5 AST 45 H ALT 21 Alkaline Phosphatase 72 Total Protein 6.5 Albumin 3.1 L Quality VTE Prophylaxis VTE prophylaxis: mechanical ordered
[2025-04-20 14:00] VITALS: BP 109/63; PULSE 83; RESP 16; TEMP 36.6; O2SAT 100
[2025-04-20 22:00] VITALS: BP 107/65; PULSE 83; RESP 20; TEMP 36.7; O2SAT 98
--- NOTE | 2025-04-20 23:58 | PC.NURSE ---
Pt requested purewick, Pt educated of the importance of being mobile after surgery, Pt verbalized understanding.
[2025-04-21 05:47] VITALS: BP 109/63; PULSE 74; RESP 20; TEMP 36.9; O2SAT 98
[2025-04-21 06:05] LABS: Hematocrit 29.6 % (37.0-47.0); Hemoglobin 9.4 g/dL (12.0-15.0); Immature Granulocyte Percent A 0.2 % (0-0.5); Lymphocytes Absolute Auto 2.15 K/mm3 (0.9-3.2); Mean Corpuscular HGB Conc 31.8 g/dl (32-36); Mean Corpuscular Hemoglobin 30.8 pg (26-34); Mean Corpuscular Volume 97.0 fl (80-100); Nucleated Red Blood Cells Absolute Auto 0.000 K/mm3 (0.0-0.012); Nucleated Red Blood Cells Perc 0.0 % (0.0-0.2); Platelet Count Result 238 k/mm3 (150-375); Red Blood Count 3.05 M/mm3 (4.2-5.4); White Blood Count 6.2 K/mm3 (4.5-10.0)
[2025-04-21] MEDS: ACETAMINOPHEN 325 MG TABLET 650 MG PO ×2 (06:23→11:39)
[2025-04-21 06:41] LABS: Alanine Aminotransferase 21 U/L (6-35); Albumin Level 2.8 g/dL (3.5-5.1); Alkaline Phosphatase 69 U/L (38-126); Anion Gap 0 mmol/L (4-12); Aspartate Amino Transferase 45 U/L (14-36); Bilirubin,Total 0.4 mg/dL (0.2-1.3); Blood Urea Nitrogen 20 mg/dL (7-17); Calcium 8.2 mg/dL (8.4-10.2); Carbon Dioxide 30 mmol/L (22-30); Chloride 104 mmol/L (98-107); Estimated CRCL calculation 65 ml/min; Estimated Glomerular Filt Rate > 60; Glucose 87 mg/dL (65-110); Potassium 4.0 mmol/L (3.4-5.0); Sodium 134 mmol/L (137-145); Total Protein 6.0 g/dL (6.3-8.2)
[2025-04-21] MEDS: oxyCODONE HCL (*CRX) 5 MG TAB IR PO ×2 (08:54→14:43)
[2025-04-21] MEDS: NAPROXEN 375 MG TABLET PO (09:00)
[2025-04-21] MEDS: SENNA/DOCUSATE SODIUM TABLET 2 TAB PO (09:00)
[2025-04-21] MEDS: ASPIRIN 81 MG ENTERIC TABLET PO (09:01)
[2025-04-21] MEDS: TRIAMTERENE 37.5 MG/HCTZ 25 MG (MAXZIDE) TABLET 1 TAB PO (09:01)
[2025-04-21] MEDS: PRAVASTATIN SODIUM 20 MG TABLET 40 MG PO (09:02)
[2025-04-21] MEDS: FAMOTIDINE 20 MG TABLET PO (09:02)
--- NOTE | 2025-04-21 13:36 | PM.DS ---
DS: Admitting Diagnosis Discharge Date 04/21/2025 Admitting Diagnosis Fall, R hip fx DS: Discharge Diagnosis Discharge Diagnosis (1) Closed fracture of neck of right femur: Qualifiers: Encounter type: initial encounter Qualified Code(s): S72.001A - Fracture of unspecified part of neck of right femur, initial encounter for closed fracture Code(s): S72.001A - Fracture of unspecified part of neck of right femur, initial encounter for closed fracture Status: Acute Assessment and Plan: Patient sustained a ground level fall on Sunday. Her was trying to assist her when they lost their balance causing them to both fall. The patient fell onto her right hip, hit the back of her head, but did not lose consciousness. She has been unable to bear weight on her right lower extremity or ambulate since the fall. Had an additional fall on Sunday where she sustained a proximal right fibular fracture, see below. Admitted for surgical management of her right femoral neck fracture. CT of the hip showed a mildly comminuted right femoral neck fracture with foreshortening and varus angulation. - Surgical repair 04/18 via ortho - analgesics p.r.n.: Tylenol, [place], Dilaudid - x4 BMs this AM - Continue with PT/OT postop and acute rehab services given she has an additional fracture in her right lower extremity at discharge, CC following - Continue ASA for DVT prophylaxis per ortho (2) Fracture of proximal end of right fibula: Qualifiers: Encounter type: subsequent encounter Fracture healing: with routine healing Fracture morphology: unspecified fracture morphology Fracture type: closed Qualified Code(s): S82.831D - Other fracture of upper and lower end of right fibula, subsequent encounter for closed fracture with routine healing Code(s): S82.831A - Other fracture of upper and lower end of right fibula, initial encounter for closed fracture Status: Acute Assessment and Plan: Sustained a fall on Thursday 04/12, evaluated on Friday 04/13. XR showed a Hairline fracture of proximal shaft of the right fibula. Knee immobilizer was placed and she was discharged home with follow-up with the orthopedic team. She had follow-up today with Dr. Amanda. However given her new injury she was transferred to the emergency department for further evaluation. - continue knee immobilizer once no longer on bed rest - continue PT/OT Plan Discharge to [facility] [place] today for continued post op therapy DS: Summary Hospital Course Reason for hospitalization: Falls, R hip fx Hospital Course: The patient is a 64-year-old female with a history of dyslipidemia, hypertension, vitamin D deficiency, and prior right knee replacement, who was admitted following a ground-level fall resulting in a right femoral neck fracture. She initially sustained a proximal right fibular fracture after a fall at home on 04/12, for which she was evaluated and managed with a knee immobilizer. On 04/14, while her was assisting her at home, they both fell, and she landed on her right hip, resulting in immediate pain and inability to bear weight. She was seen in orthopedic clinic on 04/17, where imaging revealed a right femoral neck fracture, prompting transfer to the emergency department for further evaluation and management. On admission, she was found to have a mildly comminuted right femoral neck fracture with foreshortening and varus angulation on CT, and a healing proximal right fibular fracture. She was admitted for surgical management and underwent right hip hemiarthroplasty on 04/18 without intraoperative complications. Postoperatively, her pain was well controlled with a multimodal regimen including acetaminophen, NSAIDs, and opioids as needed. She was maintained on aspirin for DVT prophylaxis and started on a bowel regimen to prevent opioid-induced constipation. Physical and occupational therapy were initiated, but her mobility was limited by the additional right fibular fracture. She remained hemodynamically stable throughout her stay. Electrolyte abnormalities, including hypokalemia, were corrected. She tolerated a regular diet and had no issues with wound healing or infection. Discharge planning included arrangements for transfer to an inpatient rehabilitation facility for continued therapy and recovery, given her limited mobility and need for assistance with activities of daily living. She was discharged in stable condition on 04/21, with instructions to continue DVT prophylaxis, resume home medications, and follow up with orthopedics and her primary care provider. Status at Discharge Overall status at discharge: patient is progressing back to baseline Time Spent with Patient Time attestation: Total time spent providing and/or coordinating discharge services: Time spent: Greater than 30 minutes Exam Const: General: comfortable and no acute distress Other: , female, nontoxic appearance HENMT: Face/Nose/Sinus: Normal nares present Mouth: Yes moist mucous membranes Eyes: General: appearance normal, both eyes and all related structures Sclera: sclerae normal Pupils: Equal, round and reactive pupils present EOM: EOMs intact bilaterally Resp: Effort & Inspection: normal respiratory effort Auscultation: clear to auscultation bilaterally Cardio: Rate: regular rate Rhythm: regular rhythm Other: S1-S2 present without murmur, rub, ectopy GI: Other: Abdomen soft, non distended, nontender. Normoactive bowel sounds in all quadrants. Skin: General skin exam: normal color and no rashes or lesions noted Wounds: no wounds Neuro: Cranial nerves: Yes Equal, round and reactive pupils present Speech: normal speech Sensory Exam: normal sensation Other: A&O x4. Extrem: Other: DP pulses palpable, surgical dressing applied laterally, CDI Psych: Mental Status: mental status grossly normal Affect: normal affect Other: Good insight and judgment, pleasant DS: Data Data Completed and Pending Completed studies during hospitalization: Labs, urine, imaging Labs on day of discharge: Labs from last 24 hours 04/21/25 05:40 WBC 6.2 RBC 3.05 L Hgb 9.4 L Hct 29.6 L MCV 97.0 MCH 30.8 MCHC 31.8 L RDW 14.0 Plt Count 238 MPV 9.8 Immature Gran % (Auto) 0.2 Neut % (Auto) 47.4 Lymph % (Auto) 35.0 [place] % (Auto) 10.1 H Eos % (Auto) 6.8 H Baso % (Auto) 0.5 Lymph # (Auto) 2.15 [place] # (Auto) 0.6 Eos # (Auto) 0.4 H Baso # (Auto) 0.0 Abs Immat Gran (auto) 0.01 Absolute Neuts (auto) 2.9 Absolute Nucleated RBC 0.000 Nucleated RBC % 0.0 Sodium 134 L Potassium 4.0 Chloride 104 Carbon Dioxide 30 Anion Gap 0 L BUN 20 H Creatinine 0.82 Estim Creat Clear Calc 65 Estimated GFR > 60 Glucose 87 Calcium 8.2 L Total Bilirubin 0.4 AST 45 H ALT 21 Alkaline Phosphatase 69 Total Protein 6.0 L Albumin 2.8 L Discharge Plan Discharge Attending physician on discharge: Louie Aranda Consulting providers: Amy Dunn; Broderick Gallagher Discharging Clinician: Amy Dunn Anticipated Discharge Date/Time: 04/21/25 16:00 Patient Disposition: Inpatient Rehab Facility Activity: as tolerated Diet: regular Discharge Instructions: 1. Continue to work with therapy at the facility, it is important to do this to become strong enough for you to go home. 2. Follow-up with orthopedics outpatient Continue to check your blood pressure and blood sugar at home if applicable. Keep your scheduled appts with your primary care provider and any specialist that you may see. Return to the emergency department if you develop sudden shortness of breath, chest pain, a fever of greater than 101.5, or nausea, vomiting, abd pain, or diarrhea that does not go away. Follow-up with your primary care provider within 1-2 weeks, they will want to be updated on your inpatient stay in the hospital. Thank you for choosing [facility] for your healthcare needs. Patient Instructions: Fall Prevention (GEN), Hip Fracture (GEN) Patient Language: Danish Stand Alone Forms: General Discharge Information Follow-up/Referrals: Boni Huntley MD [Primary Care Provider, Internal Medicine] - 2 Weeks Broderick Gallagher MD [Physician, Orthopedics] - 2 Weeks Discharge Medications: Continued turmeric 400 mg capsule 400 mg PO HS Neuriva Plus 0.85 mg-200 mcg-1.2 mcg tablet,chewable 1 tablet PO HS cetirizine [Zyrtec] 10 mg tablet 10 mg PO DAILY Qty: 30 0RF aspirin [Adult Aspirin Regimen] 81 mg tablet,delayed release (DR/EC) 81 mg PO DAILY naproxen 375 mg tablet 375 mg PO BID Qty: 14 0RF oxycodone 5 mg tablet 5 mg PO Q8H PRN (Reason: pain) Qty: 10 0RF methocarbamol 750 mg tablet 750 mg PO TID PRN (Reason: muscle spasm) Qty: 30 0RF paroxetine HCl 10 mg tablet 10 mg PO DAILY Qty: 90 1RF potassium chloride 20 mEq tablet extended release See Rx Instructions .ROUTE .COMPLEX Qty: 270 2RF Dose Instruction: TAKE 2 TABLETS BY MOUTH TWICE A DAY Rx Instructions: TAKE 40MEQ in the AM and 20 MEQ in the PM albuterol sulfate [Ventolin HFA] 90 mcg/actuation HFA aerosol inhaler 1 inh inhalation Q4H PRN (Reason: shortness of breath or wheezing) Qty: 8.5 1RF triamterene-hydrochlorothiazid 37.5-25 mg tablet 1 tablet PO QAM Qty: 90 1RF Rx Instructions: Please D/C the Furosemide and Potassium. Thank you pravastatin 40 mg tablet 40 mg PO DAILY Qty: 90 1RF Date of admission: 04/18/25 10:23 Primary Care Provider: Boni Huntley Admitting Provider: Sandra oFrd Attending physician on admission: Sandra Ford Condition: Stable Quality VTE Prophylaxis VTE prophylaxis: mechanical ordered Hospitalist MIPS Heart Failure (Exclusion) Patient has history of Heart Transplant or Left Ventricular Assistive Device?: No IF YES, STOP HERE Heart Failure (Qualifier) Patient has current or prior documentation of LVEF less than or equal to 40%, or mod/servere depressed LVSF?: No IF NO, STOP HERE
== END 2025-04-21 14:57 | DRG 522 ==
LOC: ANHED 13:48 → ANH3MEDSUR 15:14
PROVIDERS: Orthopaedic Surgery; Admitting Provider Internal Medicine; Emergency Provider Physician Assistant; PCP Internal Medicine
PROC: 0SRR01Z Replacement of Right Hip Joint, Femoral Surface with Metal Synthetic Substitute, Open Approach (ICD-10-PCS; CPT 27125; principal; 2025-04-18 09:30)
DX: S72.001A Fracture of unspecified part of neck of right femur, initial encounter for closed fracture (principal); S82.831D Other fracture of upper and lower end of right fibula, subsequent encounter for closed fracture with routine healing; E55.9 Vitamin D deficiency, unspecified; I10 Essential (primary) hypertension; E87.6 Hypokalemia; R19.02 Left upper quadrant abdominal swelling, mass and lump; E78.5 Hyperlipidemia, unspecified; Z96.659 Presence of unspecified artificial knee joint; F17.210 Nicotine dependence, cigarettes, uncomplicated; W04.XXXA Fall while being carried or supported by other persons, initial encounter; W10.8XXD Fall (on) (from) other stairs and steps, subsequent encounter; Z91.81 History of falling; Z79.891 Long term (current) use of opiate analgesic; Z79.82 Long term (current) use of aspirin
CPT/HCPCS: 36415; 53060; 70450; 71045; 72125; 73502; 73600; 73700; 80053; 85025; 85610; 85730; 86850; 86900; 86901; 93005; 94640; 96374; 96376; 97110; 97161; 97165; 97530; 97535; J0690; A9270; C1713; C1776; G0378; J0166; J1100; J1171; J1200; J1596; J2003; J2004; J2250; J2371; J2405; J2704; J3010; J3290; J3373; J7030; J7120